=== PATIENT | male | born 1970 | race Asian ===

== ENCOUNTER 2020-05-26 15:03 | Outpatient (REF) | payer OTHER, SELFPAY ==
[2020-05-26 15:33] LABS: MANUAL DIFF FLAG NO
[2020-05-26 15:38] LABS: Basophils Percent Auto 0.4 % (0-2); Eosinophils Absolute Auto 0.1 X10*3/uL (0.0-0.4); Eosinophils Percent Auto 1.7 % (0-4); Hematocrit 39.9 % (42-52); Hemoglobin 13.4 g/dl (14.0-18.0); Imm Gran Abs Auto 0.02 X10*3/uL (0.00-0.03); Imm Gran Pct Auto 0.3 % (0.0-0.4); Lymphocytes Absolute Auto 1.4 X10*3/uL (1.2-4.9); Lymphocytes Percent Auto 18.9 % (20-40); Mean Corpuscular HGB Conc 33.6 g/dl (31.0-36.0); Mean Corpuscular Hemoglobin 28.8 pg (27.0-33.0); Mean Corpuscular Volume 85.6 fL (80-98); Mean Platelet Volume 9.8 fL (9.4-12.4); Monocytes Absolute Auto 0.6 X10*3/uL (0.1-1.2); Monocytes Percent Auto 7.3 % (2-11); Neutrophils Absolute Auto 5.4 X10*3/uL (2.0-8.3); Neutrophils Percent Auto 71.4 % (45-73); Platelet Count 260 X10*3/uL (160-400); Red Blood Count 4.66 X10*6/uL (4.60-5.80); Red Cell Distribution Width 12.1 % (11.0-16.0); White Blood Count 7.5 X10*3/uL (4.8-10.8)
[2020-05-26 16:00] LABS: Glucose Urine UA 100 MG/DL (NEG); Leukocyte Esterase Urine NEG (NEG); Nitrite Urine NEG (NEG); PH 5.5 (5.0-8.0); Specific Gravity - Urine 1.025 (1.005-1.025); Urine Blood NEG (NEG); Urine Ketones NEG (NEG); Urine Protein NEG (NEG-TRACE)
[2020-05-26 16:04] LABS: Alanine Aminotransferase 33 U/L (0-40); Albumin Level 4.6 g/dL (3.5-5.0); Alkaline Phosphatase 87 U/L (39-117); Anion Gap 13 (12-20); Appearance Urine CLEAR; Aspartate Amino Transferase 22 U/L (5-37); Bilirubin Total 0.8 mg/dL (0.0-1.0); Blood Urea Nitrogen 12 mg/dL (9-16); Calcium 10.3 mg/dL (8.4-10.2); Carbon Dioxide 28 mmol/L (22-29); Chloride 103 mmol/L (96-108); Cholesterol 164 mg/dL; Color Urine YELLOW; Estimated Glomerular Filt Rate > 60; Glucose Random 214 mg/dL (60-115); HDL Cholesterol 38 mg/dL; LDL Cholesterol Calculated 89 mg/dl; Potassium 4.9 mmol/L (3.3-5.1); Sodium 139 mmol/L (135-145); Total Protein 7.6 g/dL (6.5-8.0); Triglycerides 189 mg/dL
[2020-05-26 16:10] LABS: RBC Urine 0 /HPF (0); WBC Urine 0 /HPF (0-4)
[2020-05-26 16:17] LABS: Free T4 (Free Thyroxine) 2.27 ng/dL (0.71-1.85); Thyroid Stimulating Hormone < 0.01 uIU/mL (0.32-4.0)
[2020-05-26 16:45] LABS: Folate > 20.0 ng/mL (> or = 4.0); Vitamin B12 320 pg/mL (200-900)
== END 2020-05-26 15:04 | disposition home or self-care (01) ==
LOC: HO.LAB 15:03
PROVIDERS: PCP Internal Medicine; Visit Provider Internal Medicine
DX: I10 Essential (primary) hypertension (principal); E78.00 Pure hypercholesterolemia, unspecified
CPT/HCPCS: 36415; 80053; 80061; 81001; 82607; 82746; 84439; 84443; 85025

== ENCOUNTER → 2020-07-12 13:40 | Outpatient (BNVA) | payer OTHER, SELFPAY | PROVIDERS: PCP Internal Medicine; Visit Provider Dietitian, Registered | DX: Z13.89 Encounter for screening for other disorder (principal) | CPT/HCPCS: 97802 ==

== ENCOUNTER 2020-07-29 14:17 | Outpatient (REF) | payer OTHER, SELFPAY ==
[2020-07-29 16:01] LABS: MANUAL DIFF FLAG NO
[2020-07-29 16:05] LABS: Basophils Percent Auto 0.5 % (0-2); Eosinophils Absolute Auto 0.2 X10*3/uL (0.0-0.4); Eosinophils Percent Auto 2.3 % (0-4); Hematocrit 39.4 % (42-52); Hemoglobin 13.2 g/dl (14.0-18.0); Imm Gran Abs Auto 0.04 X10*3/uL (0.00-0.03); Imm Gran Pct Auto 0.5 % (0.0-0.4); Immature Retic Fraction 6.4 % (2.3-13.4); Lymphocytes Absolute Auto 1.9 X10*3/uL (1.2-4.9); Lymphocytes Percent Auto 22.4 % (20-40); Mean Corpuscular HGB Conc 33.5 g/dl (31.0-36.0); Mean Corpuscular Hemoglobin 27.9 pg (27.0-33.0); Mean Corpuscular Volume 83.3 fL (80-98); Mean Platelet Volume 10.4 fL (9.4-12.4); Monocytes Absolute Auto 0.5 X10*3/uL (0.1-1.2); Monocytes Percent Auto 6.3 % (2-11); Neutrophils Absolute Auto 5.6 X10*3/uL (2.0-8.3); Platelet Count 314 X10*3/uL (160-400); Red Blood Count 4.73 X10*6/uL (4.60-5.80); Red Cell Distribution Width 12.2 % (11.0-16.0); Retic HGB Equivalent 32.2 pg (30.0-35.0); Reticulocyte Percent 1.2 % (0.5-1.8); Reticulocytes Absolute 0.055 X10*6/uL (0.026-0.095); White Blood Count 8.3 X10*3/uL (4.8-10.8)
[2020-07-29 16:28] LABS: Iron 86 mcg/dL (45-160); Percent Iron Saturation 29 % (15-50); Total Iron Binding Capacity 299 mcg/dL (228-428); Unsaturated Iron Binding 213 ug/dL
[2020-07-29 16:45] LABS: Free T4 (Free Thyroxine) 1.63 ng/dL (0.71-1.85)
[2020-07-29 16:52] LABS: Thyroid Stimulating Hormone < 0.01 uIU/mL (0.32-4.0)
[2020-07-29 17:01] LABS: Folate > 20.0 ng/mL (> or = 4.0); Vitamin B12 420 pg/mL (200-900)
[2020-07-29 17:23] LABS: Ferritin 90 ng/mL (20-250)
[2020-08-01 07:47] LABS: Triiodothyronine T3 Total 158 ng/dL (76-181)
[2020-08-02 21:47] LABS: Thyroglobulin Antibodies 1 IU/mL (< or = 1); Thyroid Peroxidase Antibodies 2 IU/mL (<9)
[2020-08-04 21:17] LABS: Thyroid Stimulating Immunoglob <89 % baseline (<140); Thyrotropin Receptor Antibody 11.38 IU/L (<=2.00)
== END 2020-07-29 14:18 | disposition home or self-care (01) ==
LOC: HO.LAB 14:17
PROVIDERS: PCP Internal Medicine; Visit Provider Internal Medicine Endocrinology, Diabetes & Metabolism
DX: E11.65 Type 2 diabetes mellitus with hyperglycemia (principal); D64.9 Anemia, unspecified; F17.210 Nicotine dependence, cigarettes, uncomplicated; E05.90 Thyrotoxicosis, unspecified without thyrotoxic crisis or storm; Z79.899 Other long term (current) drug therapy
CPT/HCPCS: 36415; 82607; 82728; 82746; 83520; 83540; 84439; 84443; 84445; 84480; 85025; 85045; 86376; 86800

== ENCOUNTER 2020-08-22 13:39 | Outpatient (REF) | payer OTHER, SELFPAY ==
--- NOTE | ~2020-08-22 | US_ITS ---
EXAMINATION: US THYROID CLINICAL INFORMATION: Thyrotoxicosis, unspecified without thyrotoxic crisis or storm. COMPARISON: None TECHNIQUE: Linear transducer grayscale and color Doppler examination with attention to the region of the thyroid. FINDINGS: SIZE: Measurements of the thyroid lobes and nodules are given in sagittal, anteroposterior and transverse dimensions respectively. Right Thyroid Lobe: 4.6 x 1.5 x 1.5 cm, volume 5.4 mL. Parenchyma: The gland echotexture is homogeneous. Thyroid vascularity is normal. Left Thyroid Lobe: 4.8 x 1.4 x 1.4 cm, volume 4.9 mL. Parenchyma: The gland echotexture is homogeneous. Thyroid vascularity is normal. Isthmus: 0.2 cm in maximum AP dimension. Estimated total number of nodules greater than or equal to 1 cm: 0. Natural Resources Technician nodules are described as follows: 1. Location: Left lower pole. Size: 0.3 x 0.1 x 0.2 cm, volume 0.01 mL. Nodule characteristics: Composition: Cystic(0). ACR TI-RADS total points: 0 ACR TI-RADS category: 1 2. Location: Right mid pole. Size: 0.3 x 0.2 x 0.2 cm, volume 0.01 mL. Nodule characteristics: Composition: Cystic(0). ACR TI-RADS total points: 0 ACR TI-RADS category: 1 NODES: There are 2 hyperechoic solid nodules slightly posterior and lateral to the inferior left lobe. These measure 6 x 4 x 4 mm and 8 x 5 x 10 mm. Both lesions may have a thin peripheral hypoechoic component. It is uncertain whether these represent lymph nodes with prominent fatty jc and cortical thinning. US/US thyroid IMPRESSION: Normal-sized thyroid gland with small bilateral thyroid nodules. 2 hyperechoic lesions posterior and lateral to the inferior left lobe. It is uncertain whether these represent lymph nodes with prominent fatty jc and cortical thinning or other soft tissue lesion. ACR TI-RADS RECOMMENDATION REFERENCE: Ultrasound-guided fine-needle aspiration, followup ultrasound, no further follow up. * TR1 (0 point) and TR 2 (2 points): No FNA or follow up * TR3 (3 points): FNA if more than or equal to 2.5 cm in maximum dimension, followup ultrasound in 1, 3 and 5 years if 1.5 to 2.4 cm in maximum dimension. * TR4 (4-6 points): FNA if more than or equal to 1.5 cm in maximum dimension, followup ultrasound in 1, 2, 3 and 5 years if 1 to 1.4 cm in maximum dimension. * TR5 (more than or equal to 7 points): FNA if more than or equal to 1 cm in maximum dimension, followup ultrasound every year for 5 years if 0.5 to 0.9 cm in maximum dimension. * TR3, TR4 or TR5 nodules that are below the size threshold for follow up receive no follow up.
== END 2020-08-22 13:40 | disposition home or self-care (01) ==
LOC: HO.HMGCX 13:39
PROVIDERS: PCP Internal Medicine; Visit Provider Internal Medicine Endocrinology, Diabetes & Metabolism
DX: E05.90 Thyrotoxicosis, unspecified without thyrotoxic crisis or storm (principal)
CPT/HCPCS: 76536

== ENCOUNTER → 2020-08-29 09:29 | Outpatient (BNVA) | payer OTHER, SELFPAY | PROVIDERS: PCP Internal Medicine; Visit Provider Internal Medicine Endocrinology, Diabetes & Metabolism ==

== ENCOUNTER → 2020-09-07 10:21 | Outpatient (REF) | payer OTHER, SELFPAY | LOC: HO.NUCMED 10:21 | PROVIDERS: Visit Provider Internal Medicine Endocrinology, Diabetes & Metabolism | DX: Z13.89 Encounter for screening for other disorder (principal) ==

== ENCOUNTER → 2020-09-14 09:27 | Outpatient (REF) | payer OTHER, SELFPAY ==
--- NOTE | ~2020-09-14 | NM_ITS ---
EXAMINATION: THYROID UPTAKE AND SCAN CLINICAL INFORMATION: Thyrotoxicosis. COMPARISON: No previous radionuclide thyroid scan is available for comparison. Thyroid ultrasound dated 08/22/2020 is available for comparison. TECHNIQUE: Following the oral administration of 281 microcuries of I-123 sodium iodide, thyroid uptake was performed and expressed as a percentage of the administrated dose. Gamma scintillation camera images of the thyroid in the anterior and right and left anterior oblique views were obtained using a pinhole collimator following the administration of 10 mCi Tc-99m pertechnetate. FINDINGS: The uptake is 7.8% at 4 hours and 27.6% at 24 hours (Normal radioiodine uptake at 24 hours is 10% to 30%). The radioiodine uptake is normal. The radiopertechnetate thyroid scintigram demonstrates the thyroid gland to be normal in size, shape, and position. There is homogeneous distribution of activity within the the gland with no focal abnormalities noted. The trapping function appears normal. There is a focus of decreased activity of moderate severity present in the lower pole of the left lobe. Otherwise there is homogeneous distribution of activity in the remainder the left lobe and throughout the right lobe, but the trapping function is markedly increased diffusely. A single anterior radioiodine image obtained at the time of the 24-hour uptake measurement is similar to the radio pertechnetate image but does not delineate the detail within the gland as well. The thyroid ultrasound dated 08/22/2020 demonstrated significant nodularity in or immediately adjacent to the lower pole the left lobe that probably corresponds to the focus of decreased activity on the current study at this site. 2 additional subcentimeter nodules in the left lower pole and right mid pole are too small to be visualized on this radionuclide images and are not delineated. NM/NM thyroid w uptake IMPRESSION: 1. A solitary hypofunctioning (cold) nodule is likely present in the lower pole of the left lobe. Further characterization of this with ultrasound-guided fine-needle aspirate is recommended. 2. Homogeneous distribution of activity there is diffusely increased trapping function within the remainder of the thyroid gland despite its normal size and normal radioiodine uptake is consistent with Graves' disease in the clinical setting of hyperthyroidism.
== END ==
LOC: HO.NUCMED 09:27
PROVIDERS: PCP Internal Medicine; Visit Provider Internal Medicine Endocrinology, Diabetes & Metabolism
DX: E05.90 Thyrotoxicosis, unspecified without thyrotoxic crisis or storm (principal)
CPT/HCPCS: 78014; A9516

== ENCOUNTER 2020-11-28 10:46 | Outpatient (REF) | payer OTHER, SELFPAY ==
[2020-11-28 10:55] LABS: MANUAL DIFF FLAG NO
[2020-11-28 11:14] LABS: Basophils Percent Auto 0.5 % (0-2); Eosinophils Absolute Auto 0.1 X10*3/uL (0.0-0.4); Eosinophils Percent Auto 1.6 % (0-4); Hematocrit 38.1 % (42-52); Hemoglobin 12.7 g/dl (14.0-18.0); Imm Gran Abs Auto 0.03 X10*3/uL (0.00-0.03); Imm Gran Pct Auto 0.4 % (0.0-0.4); Lymphocytes Absolute Auto 1.9 X10*3/uL (1.2-4.9); Lymphocytes Percent Auto 23.7 % (20-40); Mean Corpuscular HGB Conc 33.3 g/dl (31.0-36.0); Mean Corpuscular Hemoglobin 30.7 pg (27.0-33.0); Mean Platelet Volume 9.5 fL (9.4-12.4); Monocytes Absolute Auto 0.6 X10*3/uL (0.1-1.2); Monocytes Percent Auto 7.7 % (2-11); Neutrophils Absolute Auto 5.4 X10*3/uL (2.0-8.3); Neutrophils Percent Auto 66.1 % (45-73); Platelet Count 270 X10*3/uL (160-400); Red Blood Count 4.14 X10*6/uL (4.60-5.80); Red Cell Distribution Width 13.2 % (11.0-16.0); White Blood Count 8.1 X10*3/uL (4.8-10.8)
[2020-11-28 11:55] LABS: Alanine Aminotransferase 23 U/L (0-40)
[2020-11-28 11:59] LABS: Free T4 (Free Thyroxine) 0.67 ng/dL (0.71-1.85); Thyroid Stimulating Hormone 69.29 uIU/mL (0.32-4.0)
[2020-11-28 12:41] LABS: Albumin Level 4.7 g/dL (3.5-5.0); Alkaline Phosphatase 121 U/L (39-117); Aspartate Amino Transferase 25 U/L (5-37); Bilirubin Direct 0.2 mg/dL (0.0-0.5); Bilirubin Total 0.5 mg/dL (0.0-1.0); Total Protein 7.9 g/dL (6.5-8.0)
[2020-11-29 22:27] LABS: Triiodothyronine T3 Total 79 ng/dL (76-181)
== END 2020-11-28 10:47 | disposition home or self-care (01) ==
LOC: HO.LAB 10:46
PROVIDERS: PCP Internal Medicine; Visit Provider Internal Medicine Endocrinology, Diabetes & Metabolism
DX: E05.00 Thyrotoxicosis with diffuse goiter without thyrotoxic crisis or storm (principal)
CPT/HCPCS: 36415; 80076; 84439; 84443; 84480; 85025

== ENCOUNTER 2021-02-20 08:53 | Outpatient (REF) | payer OTHER, SELFPAY ==
--- NOTE | ~2021-02-20 | XR_ITS ---
EXAMINATION: XR KNEE, RIGHT XR KNEE, LEFT CLINICAL INFORMATION: Bilateral knee pain COMPARISON: None TECHNIQUE: Each knee is imaged in 3 views including AP projections with weightbearing. There are total of 6 views. FINDINGS: Right: No fracture, dislocation, or destructive process. No focal joint narrowing. No erosive change or chondrocalcinosis. There is small suprapatellar effusion with mild thickening suprapatellar bursa. Hoffa's fat pad appears normal. There is spurring at the quadriceps insertion patella. Left: No fracture, dislocation, or destructive process. There is borderline narrowing medial knee joint compartment and lateral patellofemoral joint without erosive change, chondrocalcinosis, or subchondral sclerosis. There is small suprapatellar effusion. Hoffa's fat pad appears normal. There is spurring at the quadriceps insertion patella. XR/XR knee RT 3V IMPRESSION: Right: -Small suprapatellar effusion. No joint narrowing or erosive change. -Mild spurring quadriceps insertion patella. Left: -Small suprapatellar effusion. Borderline narrowing medial knee joint compartment and lateral patellofemoral joint. No erosive change. -Mild spurring quadriceps insertion patella.
--- NOTE | ~2021-02-20 | XR_ITS ---
EXAMINATION: XR KNEE, RIGHT XR KNEE, LEFT CLINICAL INFORMATION: Bilateral knee pain COMPARISON: None TECHNIQUE: Each knee is imaged in 3 views including AP projections with weightbearing. There are total of 6 views. FINDINGS: Right: No fracture, dislocation, or destructive process. No focal joint narrowing. No erosive change or chondrocalcinosis. There is small suprapatellar effusion with mild thickening suprapatellar bursa. Hoffa's fat pad appears normal. There is spurring at the quadriceps insertion patella. Left: No fracture, dislocation, or destructive process. There is borderline narrowing medial knee joint compartment and lateral patellofemoral joint without erosive change, chondrocalcinosis, or subchondral sclerosis. There is small suprapatellar effusion. Hoffa's fat pad appears normal. There is spurring at the quadriceps insertion patella. XR/XR knee LT 3V IMPRESSION: Right: -Small suprapatellar effusion. No joint narrowing or erosive change. -Mild spurring quadriceps insertion patella. Left: -Small suprapatellar effusion. Borderline narrowing medial knee joint compartment and lateral patellofemoral joint. No erosive change. -Mild spurring quadriceps insertion patella.
[2021-02-20 09:50] LABS: MANUAL DIFF FLAG NO
[2021-02-20 10:10] LABS: Basophils Absolute Auto 0.1 X10*3/uL (0.0-0.2); Basophils Percent Auto 0.5 % (0-2); Eosinophils Absolute Auto 0.1 X10*3/uL (0.0-0.4); Eosinophils Percent Auto 1.3 % (0-4); Hematocrit 40.1 % (42.0-52.0); Hemoglobin 13.2 g/dl (14.0-18.0); Imm Gran Abs Auto 0.04 X10*3/uL (0.00-0.03); Imm Gran Pct Auto 0.4 % (0.0-0.4); Immature Retic Fraction 11.9 % (2.3-13.4); Lymphocytes Absolute Auto 1.9 X10*3/uL (1.2-4.9); Lymphocytes Percent Auto 18.8 % (20-40); Mean Corpuscular HGB Conc 32.9 g/dl (31.0-36.0); Mean Corpuscular Hemoglobin 30.2 pg (27.0-33.0); Mean Corpuscular Volume 91.8 fL (80.0-98.0); Mean Platelet Volume 10.1 fL (9.4-12.4); Monocytes Absolute Auto 0.8 X10*3/uL (0.1-1.2); Neutrophils Absolute Auto 7.1 x10*3/uL (2.0-8.3); Platelet Count 233 X10*3/uL (160-400); Red Blood Count 4.37 X10*6/uL (4.60-5.80); Retic HGB Equivalent 34.3 pg (30.0-35.0); Reticulocyte Percent 1.3 % (0.5-1.8); Reticulocytes Absolute 0.057 X10*6/uL (0.026-0.095)
[2021-02-20 10:24] LABS: Estimated Average Glucose 160 mg/dL; Hemoglobin A1c % 7.2 %
[2021-02-20 10:35] LABS: Alanine Aminotransferase 30 U/L (0-40); Albumin Level 4.5 g/dL (3.5-5.0); Alkaline Phosphatase 98 U/L (39-117); Anion Gap 12 (12-20); Aspartate Amino Transferase 29 U/L (5-37); Bilirubin Total 0.5 mg/dL (0.0-1.0); Blood Urea Nitrogen 11 mg/dL (9-16); Calcium 9.8 mg/dL (8.4-10.2); Carbon Dioxide 26 mmol/L (22-29); Chloride 106 mmol/L (96-108); Cholesterol 238 mg/dL; Estimated Glomerular Filt Rate > 60; Glucose Random 147 mg/dL (60-115); HDL Cholesterol 63 mg/dL; Iron 110 mcg/dL (45-160); LDL Cholesterol Calculated 142 mg/dl; Percent Iron Saturation 30 % (15-50); Potassium 4.7 mmol/L (3.3-5.1); Sodium 139 mmol/L (135-145); Total Iron Binding Capacity 364 mcg/dL (228-428); Total Protein 7.9 g/dL (6.5-8.0); Triglycerides 169 mg/dL; Unsaturated Iron Binding 254 ug/dL
[2021-02-20 10:54] LABS: Ferritin 48 ng/mL (20-250)
[2021-02-20 10:55] LABS: Free T4 (Free Thyroxine) 0.97 ng/dL (0.71-1.85); Thyroid Stimulating Hormone 4.48 uIU/mL (0.32-4.0)
[2021-02-20 11:17] LABS: Folate > 20.0 ng/mL (> or = 4.0); Vitamin B12 232 pg/mL (200-900)
[2021-02-21 07:31] LABS: Triiodothyronine T3 Total 112 ng/dL (76-181)
== END 2021-02-20 08:54 | disposition home or self-care (01) ==
LOC: HO.XRAY 08:53
PROVIDERS: Internal Medicine; Absent Provider Internal Medicine; PCP Internal Medicine; Visit Provider Nurse Practitioner Family
DX: Z01.818 Encounter for other preprocedural examination (principal); E05.00 Thyrotoxicosis with diffuse goiter without thyrotoxic crisis or storm; E03.9 Hypothyroidism, unspecified; E78.00 Pure hypercholesterolemia, unspecified
CPT/HCPCS: 36415; 73562; 80053; 80061; 82607; 82728; 82746; 83036; 83540; 84439; 84443; 84480; 85025; 85045

== ENCOUNTER 2021-11-10 10:04 | Outpatient (REF) | payer OTHER, SELFPAY ==
[2021-11-10 11:15] LABS: Free T4 (Free Thyroxine) 1.06 ng/dL (0.71-1.85); Thyroid Stimulating Hormone 1.14 uIU/mL (0.32-4.0)
== END 2021-11-10 10:05 | disposition home or self-care (01) ==
LOC: HO.LAB 10:04
PROVIDERS: Internal Medicine Endocrinology, Diabetes & Metabolism; PCP Internal Medicine; Visit Provider Internal Medicine
DX: E03.9 Hypothyroidism, unspecified (principal)
CPT/HCPCS: 36415; 84439; 84443

== ENCOUNTER 2021-11-14 11:45 | Outpatient (REF) | payer OTHER, SELFPAY ==
[2021-11-14 11:57] LABS: MANUAL DIFF FLAG NO
[2021-11-14 12:44] LABS: Basophils Absolute Auto 0.1 X10*3/uL (0.0-0.2); Basophils Percent Auto 0.5 % (0-2); Eosinophils Absolute Auto 0.1 X10*3/uL (0.0-0.4); Eosinophils Percent Auto 0.8 % (0-4); Hematocrit 36.2 % (42.0-52.0); Hemoglobin 12.2 g/dl (14.0-18.0); Imm Gran Abs Auto 0.05 X10*3/uL (0.00-0.03); Imm Gran Pct Auto 0.5 % (0.0-0.4); Immature Retic Fraction 13.6 % (2.3-13.4); Lymphocytes Absolute Auto 2.1 X10*3/uL (1.2-4.9); Lymphocytes Percent Auto 22.4 % (20-40); Mean Corpuscular HGB Conc 33.7 g/dl (31.0-36.0); Mean Corpuscular Hemoglobin 30.3 pg (27.0-33.0); Mean Platelet Volume 9.6 fL (9.4-12.4); Monocytes Absolute Auto 0.7 X10*3/uL (0.1-1.2); Neutrophils Absolute Auto 6.3 x10*3/uL (2.0-8.3); Neutrophils Percent Auto 67.8 % (45-73); Platelet Count 291 X10*3/uL (160-400); Red Blood Count 4.02 X10*6/uL (4.60-5.80); Red Cell Distribution Width 13.1 % (11.0-16.0); Retic HGB Equivalent 36.7 pg (30.0-35.0); Reticulocyte Percent 1.8 % (0.5-1.8); Reticulocytes Absolute 0.073 X10*6/uL (0.026-0.095); White Blood Count 9.3 X10*3/uL (4.8-10.8)
[2021-11-14 13:05] LABS: Cholesterol 214 mg/dL; HDL Cholesterol 65 mg/dL; Iron 94 mcg/dL (45-160); LDL Cholesterol Calculated 71 mg/dl; Percent Iron Saturation 25 % (15-50); Total Iron Binding Capacity 380 mcg/dL (228-428); Triglycerides 390 mg/dL; Unsaturated Iron Binding 286 ug/dL
[2021-11-14 13:25] LABS: Ferritin 116 ng/mL (20-250)
[2021-11-14 13:50] LABS: Folate 17.5 ng/mL (> or = 4.0); Vitamin B12 180 pg/mL (200-900)
[2021-11-14 14:24] LABS: Creatinine Urine 312.49 mg/dL; Microalbum/Creatinine Ratio Ur 15.3 ug/mg cr
== END 2021-11-14 11:46 | disposition home or self-care (01) ==
LOC: HO.LAB 11:45
PROVIDERS: PCP Internal Medicine; Visit Provider Internal Medicine
DX: E78.00 Pure hypercholesterolemia, unspecified (principal); E11.65 Type 2 diabetes mellitus with hyperglycemia; D64.9 Anemia, unspecified; E53.8 Deficiency of other specified B group vitamins
CPT/HCPCS: 36415; 80061; 82043; 82607; 82728; 82746; 83540; 85025; 85045

== ENCOUNTER 2022-03-09 13:30 | Outpatient (REF) | payer OTHER, SELFPAY ==
--- NOTE | ~2022-03-09 | US_ITS ---
EXAMINATION: US SOFT TISSUE OF THE NECK CLINICAL INFORMATION: Other diseases of salivary glands. Question left parotid nodule. COMPARISON: None. TECHNIQUE: Linear transducer grayscale and color Doppler examination of the left parotid. FINDINGS: The left parotid gland is homogeneous in echotexture measuring 5.0 x 1.5 cm. Along the lateral/superficial gland, there is a hypoechoic complex nodule measuring 0.8 x 0.8 x 0.8 cm. No internal flow is visualized. Adjacent to the larger nodular the second smaller nodule measuring 0.5 x 0.2 x 0.4 cm. No abnormal or increased flow visualized. US/US soft tiss head and/or neck IMPRESSION: Two nonvascular nodules visualized in the left superficial parotid gland measuring 0.8 cm and 0.5 cm respectively. These are most likely atypical lymph nodes unless proven otherwise.
== END 2022-03-09 13:31 | disposition home or self-care (01) ==
LOC: HO.HMGCX 13:30
PROVIDERS: PCP Internal Medicine; Visit Provider Internal Medicine
DX: K11.8 Other diseases of salivary glands (principal)
CPT/HCPCS: 76536

== ENCOUNTER → 2022-03-16 09:10 | Outpatient (BNVA) | payer OTHER, SELFPAY | PROVIDERS: PCP Internal Medicine; Visit Provider Psychiatry & Neurology Neurology | DX: Z13.89 Encounter for screening for other disorder (principal) ==

== ENCOUNTER 2022-03-28 10:14 | Outpatient (REF) | payer OTHER, SELFPAY ==
[2022-03-28 12:54] LABS: Erythrocyte Sedimentation Rate 22 MM/HR (0-15)
[2022-03-30 13:03] LABS: CRP High Sensitivity 0.9 mg/L
[2022-04-01 14:53] LABS: Anti Nuclear Antibody Screen NEGATIVE (NEGATIVE)
[2022-04-03 06:32] LABS: Angiotensin Converting Enzyme 12.1 U/L (9-67)
== END 2022-03-28 10:15 | disposition home or self-care (01) ==
LOC: HO.LAB 10:14
PROVIDERS: PCP Internal Medicine; Visit Provider Psychiatry & Neurology Neurology
DX: H05.129 Orbital myositis, unspecified orbit (principal)
CPT/HCPCS: 36415; 82164; 85652; 86038; 86039; 86141; 86617; 86618

== ENCOUNTER → 2022-04-25 14:15 | Outpatient (BNVA) | payer OTHER, SELFPAY | PROVIDERS: PCP Internal Medicine; Visit Provider Psychiatry & Neurology Neurology | DX: H05.129 Orbital myositis, unspecified orbit (principal) | CPT/HCPCS: 99212 ==

== ENCOUNTER 2022-08-21 11:36 | Day surgery (SDC) | payer OTHER, SELFPAY ==
[2022-08-21 11:54] VITALS: BMI 22.0
--- NOTE | 2022-08-21 12:08 | P.HPSUR_ITS ---
Pre-Procedural Eval Section A Date of Service: 08/21/22 Section B Chief Complaint: screening Relevant Family History (Specify if Yes): No Relevant Social History: Tobacco Use Present Medications: see Short Stay Collaborative assessment Medical History: Significant History (Elbow pain, left Graves disease Hypertension Multinodular goiter) History of Previous Operations: Relevant previous surgery/procedure and date(s) (knee surgery) Allergies: Allergies Allergy/AdvReac Type Severity Reaction Status Date / Time No Known Allergies Allergy Verified 03/16/22 09:19 Review of Systems Sugical H&P ROS: Negative: Constitution, Cardiovascular, Respiratory, Neurol ogical, Psychiatric, Hem-Onc, Allergic/Immunologic, Gastrointestinal, Genitourinary, Musculoskeletal, Integumentary, Endocrine and Eyes/Ears/Nose/Throat Exam Surgical H&P Exam: Normal: HEENT, Normal: Heart, Normal: Lungs, Normal: Extremities, Normal: Abdomen, Normal: Skin and Normal: Neurological Plan Diagnosis/Plan: Unchanged I have reviewed the history and physical and performed a pertinent physical examination on my patient. No changes have occurred unless specified. Time Spent With Patient Time: Total time managing care of this patient today ____ minutes.
[2022-08-21 12:29] LABS: Glucose, Whole Blood 148 mg/dL (60-115)
--- NOTE | 2022-08-21 12:56 | P.OP_ITS ---
Operative Note Operative Note Date of Service: 08/21/22 Narrative: Operative Information Procedure Description: Colonoscopy Indication: screening Anesthesia: MAC COLONOSCOPY Instrument: Olympus variable stiffness pediatric scope 190L Colonoscopy Monitoring: Vital signs and clinical assessment, continuous EKG monitoring, Pulse oximetry, Carbon Dioxide monitoring and blood pressure monitoring were done throughout the procedure. Colon withdrawal time was 10 minutes. Procedure: The patient was placed in the left lateral decubitis position and pre-procedure medications were administered. After a digital rectal examination of the ano-rectum, the video colonoscope was inserted into the rectum and advanced through the colon to the cecum/TI. The colonoscope was slowly withdrawn in a retrograde panoramic fashion and the colon mucosa was carefully examined including a retroflexed view of the rectum. Findings and interventions are described below. Procedure Difficulty: easy Findings: Terminal Ileum-normal Cecum:normal Ascending Colon: normal Transverse Colon -normal Descending Colon: 6-8 mm sessile polyp removed with cold snare Sigmoid Colon: 7-8 mm sessile polyp removed with cold snare Rectum: Retroflexion with medium sized internal hemorrhoids, grade I Anorectum - normal Colon preparation: [place] Bowel Preparation Scale Right colon; 2 Transverse colon: 2 Left colon; 3 (0 = Unprepared colon segment with mucosa not seen due to solid stool that cannot be cleared. 1 = Portion of mucosa of the colon segment seen, but other areas of the colon segment not well seen due to staining, residual stool and/or opaque liquid. 2 = Minor amount of residual staining, small fragments of stool and/or opaque liquid, but mucosa of colon segment seen well. 3 = Entire mucosa of colon segment seen well with no residual staining, small fragments of stool or opaque liquid) Impression and Post Procedure Diagnosis: polyps internal hemorrhoids Plan: High fiber diet leaflet Avoid straining at stool, epsom salts and sitz bath, anusol supps or cream Repeat Colonoscopy in 5-7 years if adenomatous, otherwise 10 yrs if hyperplastic or earlier if clinically indicated Above findings were reviewed with the patient and relevant handouts were provided if indicated.
[2022-08-21 13:02] VITALS: BP 118/72; PULSE 75; RESP 18; TEMP 36.3; O2SAT 98
[2022-08-21 13:07] VITALS: BP 114/76; PULSE 74; RESP 18; O2SAT 97
[2022-08-21 13:12] VITALS: BP 128/80; PULSE 69; RESP 18; O2SAT 98
[2022-08-21 13:17] VITALS: BP 134/87; PULSE 63; RESP 18; O2SAT 98
[2022-08-21 13:25] VITALS: BP 139/95; PULSE 75; RESP 18; TEMP 36.8; O2SAT 99
== END 2022-08-21 14:08 | disposition home or self-care (01) ==
PROVIDERS: PCP Internal Medicine; Visit Provider Internal Medicine Gastroenterology
PROC: 0DJD8ZZ Inspection of Lower Intestinal Tract, Via Natural or Artificial Opening Endoscopic (ICD-10-PCS; CPT 45378; principal; 2022-08-21 13:40)
DX: Z12.11 Encounter for screening for malignant neoplasm of colon (principal); D12.4 Benign neoplasm of descending colon; D12.5 Benign neoplasm of sigmoid colon; K64.0 First degree hemorrhoids; I10 Essential (primary) hypertension
CPT/HCPCS: 45385; 82947; 88305

== ENCOUNTER → 2022-08-21 11:36 | Outpatient (BNV) | payer OTHER, SELFPAY | PROVIDERS: PCP Internal Medicine; Visit Provider Internal Medicine Gastroenterology | DX: K63.5 Polyp of colon (principal) | CPT/HCPCS: 45385 ==

== ENCOUNTER 2022-10-18 13:28 | Outpatient (AMB) | payer OTHER, SELFPAY ==
--- NOTE | 2022-10-18 14:08 | AM.OFFWIN_ITS ---
Intake Vital Signs 10/18/22 14:09 Height 5 ft 8 in Weight 141 lb BMI 21.4 BP 150/90 H Blood Pressure Location Rt brachial Position Sitting Pulse 88 Pulse Source Pulse Oximeter Pulse Oximetry (%) 98 Oxygen Delivery Method Room Air Intake Visit Reasons: EST/left shoulder bump Intake Note: Patient here for bump on left shoulder. states he had an injury years ago but it started bothering him the last 2-3 days. he states he is having difficulties picking things up with that hand. Patient Tobacco Use Status: Current everyday Tobacco user Allergies No Known Allergies Allergy (Verified 10/18/22 14:10) Do you need a note to return to daycare/school/sports/work: No HPI HPI Comments History of Present Illness Details 51-year-old male presents for swelling lump on his left shoulder. Patient states lump has been there for approximately 15 years scratch to be getting bigger. Over the last couple days as started to hurt he has noticed some redness in the area. Denies fevers or chills [facility] Medical History (Updated 03/27/22 @ 15:53 by Hemalatha Jauregui MD) Annual physical exam Multinodular goiter Graves disease Elbow pain, left Hyperthyroidism Hypertension Surgical History History of knee surgery Family History Mother Myocardial infarct Breast cancer Social History Housing: House Alcohol intake: current Alcohol intake frequency: does not drink Patient Tobacco Use Status: Current everyday Tobacco user Tobacco use type: Cigarette Cigarettes Per Day: 5 e-Cigarette/Vaping Use: Never Used Second Hand Smoke Exposure: No Current occupational status: employed Cognitive needs: No Hearing needs: No Vision needs: No Review of Systems Const All systems reviewed & are unremarkable except as noted in HPI and below Skin/Breast Reports new lesions and Reports erythema Physical Exam Vital Signs: Last Vital Signs Pulse 88 10/18/22 14:09 BP 150/90 H 10/18/22 14:09 Pulse Ox 98 10/18/22 14:09 Oxygen Delivery Method Room Air 10/18/22 14:09 BMI result Body Mass Index 21.4 Const General: no acute distress and alert Skin Other: well-circumscribed lump approximately 3 in x 2 in 1 the upper left shoulder. Small area of erythema and warmth on the outer edge. Assessment & Plan Assessment & Plan (1) Cellulitis: Code(s): L03.90 - Cellulitis, unspecified Qualifiers: Site of cellulitis: extremity Site of cellulitis of extremity: upper extremity Laterality: left Qualified Code(s): L03.114 - Cellulitis of left upper limb Plan given patient presentation and physical exam of consideration is abscess versus cyst with overlying cellulitis. Given the patient's lump has been present for over 15 years has suspect a cyst is present. Therefore will not drain at this time as the capsule needs to be fully removed. Will cool off with antibiotics and recommend patient follow-up with his primary care for general surgery referral to evaluate for cyst removal Discharge instructions, follow up and treatment are discussed with patient in my usual fashion. Alternatives in treatment are also discussed. The patient will return for worsening symptoms or as needed. Advised that any labs/imaging ordered will be followed up on and contact made if further treatment needed. Counseled that patient's condition may require further evaluation and/or treatment. Symptoms of concern for worsening disorder discussed in detail in my customary manner. Patient does verbalize understanding of the plan, there are no apparent barriers to communication. The patient is given the opportunity to ask questions and have them answered to his/her satisfaction Medications: New cephalexin 500 mg PO QID 7 days 28 caps 0RF benzonatate 100 mg PO BID PRN 10 caps 0RF cough Coding Level of Care Code Est Pt Level 3 (49939) Diagnoses Cellulitis of left upper extremity L03.114 Site of cellulitis: extremity Site of cellulitis of extremity: upper extremity Laterality: left
[2022-10-18 14:09] VITALS: BP 150/90; PULSE 88; O2SAT 98; BMI 21.4
== END 2022-10-18 14:34 | disposition home or self-care (01) ==
PROVIDERS: PCP Internal Medicine; Visit Provider Physician Assistant
DX: L03.114 Cellulitis of left upper limb (principal)
CPT/HCPCS: 99213

== ENCOUNTER 2022-10-24 11:55 | Outpatient (AMB) | payer OTHER, SELFPAY ==
--- NOTE | 2022-10-24 12:24 | AM.OFFWIN_ITS ---
Intake Vital Signs 10/24/22 12:25 Height 5 ft 8 in Weight 141 lb 8 oz BMI 21.5 BP 132/80 Blood Pressure Location Rt brachial Position Sitting Pulse 108 H Pulse Source Pulse Oximeter Temp 97.7 F Temp Source Temporal Artery Scan Pulse Oximetry (%) 99 Oxygen Delivery Method Room Air Intake Visit Reasons: EST/ongoing pain on shoulder Intake Note: Pt is here c/o pain in left shoulder for the last two weeks. Pt states he has a possible cyst with discharge on his left shoulder. Patient Tobacco Use Status: Current everyday Tobacco user Allergies No Known Allergies Allergy (Verified 10/27/22 10:54) Medication List - Last Reconciled 10/27/22 by Cliff Vaca MD amlodipine 10 mg PO DAILY benzonatate 100 mg PO BID PRN blood pressure monitor As directed blood sugar diagnostic (FreeStyle Lite Strips) As directed check the BS QD blood-glucose meter (FreeStyle Lite Meter kit) As directed check the BS QD cephalexin 500 mg PO QID 7 days cyanocobalamin (vitamin B-12) 1,000 mcg PO DAILY lancets (FreeStyle Lancets) As directed check the BS QD levothyroxine 25 mcg PO DAILY 30 days lisinopril 10 mg PO DAILY metformin 500 mg PO BIDWMEAL metoprolol succinate ER 25 mg PO DAILY 30 days omeprazole 40 mg PO DAILY prednisone 7 tabs x's 2 days, 6 tabs x's 2 days, 5 tabs x's 2 days, 4 tabs x's 2 days, 3 tabs x's 2 days, 2 tabs x's 2 days, then 10mg daily orally daily; 60 days prednisone 10 mg PO DAILY Do you need a note to return to daycare/school/sports/work: No HPI EST/ongoing pain on shoulder HPI Details 51-year-old male presents to the office for a sick visit. Patient has is swelling which is painful over the left shoulder. He has some discharge coming out from it. He was seen initially last week and antibiotics have not been helping much [facility] Medical History (Updated 10/27/22 @ 10:56 by Cliff Vaca MD) Shoulder abscess Annual physical exam Multinodular goiter Graves disease Elbow pain, left Hyperthyroidism Hypertension Surgical History History of knee surgery Family History Mother Myocardial infarct Breast cancer Social History Housing: House Alcohol intake: current Alcohol intake frequency: does not drink Patient Tobacco Use Status: Current everyday Tobacco user Tobacco use type: Cigarette Cigarettes Per Day: 5 e-Cigarette/Vaping Use: Never Used Second Hand Smoke Exposure: No Current occupational status: employed Cognitive needs: No Hearing needs: No Vision needs: No Physical Exam Vital Signs: Last Vital Signs Temp 97.7 F 10/24/22 12:25 Pulse 108 H 10/24/22 12:25 BP 132/80 10/24/22 12:25 Pulse Ox 99 10/24/22 12:25 Oxygen Delivery Method Room Air 10/24/22 12:25 BMI result Body Mass Index 21.5 Skin Other: Left shoulder: Purulent discharge from the swelling. The sebaceous cyst is now infected. Assessment & Plan Assessment & Plan (1) Infected sebaceous cyst of skin: Code(s): L72.3 - Sebaceous cyst; L08.9 - Local infection of the skin and subcutaneous tissue, unspecified Plan: The cyst is going to need drainage. A surgical appointment was requested and scheduled for the same day. Patient was instructed to follow-up with the surgeon. Orders: Orders XR chest 2V 10/24/22 R05.9 - Cough, unspecified Coding Level of Care Code Est Pt Level 3 (95221) Diagnoses Infected sebaceous cyst of skin L72.3; L08.9
[2022-10-24 12:25] VITALS: BP 132/80; PULSE 108; TEMP 36.5; O2SAT 99; BMI 21.5
== END 2022-10-24 15:47 | disposition home or self-care (01) ==
PROVIDERS: PCP Internal Medicine; Visit Provider Internal Medicine
DX: L72.3 Sebaceous cyst (principal); L08.9 Local infection of the skin and subcutaneous tissue, unspecified
CPT/HCPCS: 99213

== ENCOUNTER 2022-10-24 14:28 | Outpatient (AMB) | payer OTHER, SELFPAY ==
[2022-10-24 14:33] VITALS: BP 183/100; PULSE 80; BMI 21.3
--- NOTE | 2022-10-24 14:33 | A.OFFVIS_ITS ---
Intake Vital Signs 10/24/22 14:33 Height 5 ft 8 in Weight 140 lb BMI 21.3 BP 183/100 H Blood Pressure Location Rt brachial Position Sitting Pulse 80 Intake Visit Reasons: abscess left shoulder Intake Note: This patient was referred by for an assessment for an abscess on the left shoulder. Patient c/o; Onset 10-12 years, increased in size, reports currently on one round of abx Cephalexin 500 mg, left posterior shoulder. 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 Required: No Accompanied by: Self / Same As Patient Allergies No Known Allergies Allergy (Verified 10/24/22 14:34) Medication List - Last Reconciled 10/24/22 by Josue Bains MD amlodipine 10 mg PO DAILY benzonatate 100 mg PO BID PRN blood pressure monitor As directed blood sugar diagnostic (FreeStyle Lite Strips) As directed check the BS QD blood-glucose meter (FreeStyle Lite Meter kit) As directed check the BS QD cephalexin 500 mg PO QID 7 days cyanocobalamin (vitamin B-12) 1,000 mcg PO DAILY lancets (FreeStyle Lancets) As directed check the BS QD levothyroxine 25 mcg PO DAILY 30 days lisinopril 10 mg PO DAILY metformin 500 mg PO BIDWMEAL metoprolol succinate ER 25 mg PO DAILY 30 days omeprazole 40 mg PO DAILY prednisone 7 tabs x's 2 days, 6 tabs x's 2 days, 5 tabs x's 2 days, 4 tabs x's 2 days, 3 tabs x's 2 days, 2 tabs x's 2 days, then 10mg daily orally daily; 60 days prednisone 10 mg PO DAILY HPI abscess left shoulder HPI Details 51-year-old male referred for a left blas ulder abscess. He states that he has had a lump on this area for several years. However, about 2 weeks ago, this became swollen and had been draining recently. He says that his been tender with some redness as well. He was therefore referred to me by his primary care physician. He said that he had been started on antibiotics orally. [facility] Medical History (Updated 10/24/22 @ 15:19 by Josue Bains MD) Shoulder abscess Annual physical exam Multinodular goiter Graves disease Elbow pain, left Hyperthyroidism Hypertension Surgical History History of knee surgery Family History Mother Myocardial infarct Breast cancer Social History Housing: House Alcohol intake: current Alcohol intake frequency: does not drink Patient Tobacco Use Status: Current everyday Tobacco user Tobacco use type: Cigarette Cigarettes Per Day: 5 e-Cigarette/Vaping Use: Never Used Second Hand Smoke Exposure: No Current occupational status: employed Cognitive needs: No Hearing needs: No Vision needs: No Review of Systems Const Denies chills and Denies fever(s) Card Denies chest pain, Denies dyspnea and Denies dyspnea on exertion Resp Denies cough, Denies dyspnea and Denies dyspnea on exertion GI Denies hematochezia and Denies change in bowel habits Denies hematuria and Denies difficulty urinating Musc Denies back pain and Denies limited range of motion Neuro Denies focal weakness and Denies convulsions Psych Denies depression and Denies mood swings Physical Exam Vital Signs: Last Vital Signs Pulse 80 10/24/22 14:33 BP 183/100 H 10/24/22 14:33 BMI result Body Mass Index 21.3 Const General: comfortable and no acute distress Orientation/consciousness: patient oriented x3 Neck Neck: Yes no lymphadenopathy Resp Auscultation: clear to auscultation bilaterally Cardio Rhythm: regular rhythm GI Palpation (GI): Soft to palpation, nontender and no guarding Back/Spine/Pelvis Other: Left shoulder with a fluctuant mass, about 3 cm, with some drainage from the mi ddle, redness of the skin Neuro General: patient oriented x3 Office Procedures I&D Drain Details: He was placed in prone position. The area of the abscess was prepped and draped. Lidocaine 1% was used for local anesthesia. I made a cruciate incision on the skin overlying this abscess using blade 15. The abscess cavity was entered easily. Large amounts of pus was drained. I proceeded to excise the cyst capsule as well and the entire contents of the cavity using hemostat. I applied a light packing. Dressings were applied. He tolerated procedure well. There were no immediate complications. There was minimal blood loss. [id number] of Skin Abscess, complex All charges added?: Procedure code (CPT) selection complete Assessment & Plan Assessment & Plan (1) Shoulder abscess: Code(s): L02.419 - Cutaneous abscess of limb, unspecified Plan: He has had abscess in the shoulder as described above likely from an infected epidermal inclusion cyst. I described to him the benefit of proceeding with I&D at this time under local anesthesia. I discussed the technique of this procedure as well as the risks, benefits and alternatives and had given consent I&D was done and he tolerated this well. We were able to remove the cyst capsule as well. I applied a light packing. I gave him wound care instructions. He is to change dressings daily. I can see him in the office on a p.r.n. basis. Coding Level of Care Code New Pt Level 3 (25930) Diagnoses Shoulder abscess L02.419 CPT Codes I&D Drain - Drain 2: [id number] of Skin Abscess, complex ([id number])
== END 2022-10-24 15:13 | disposition home or self-care (01) ==
PROVIDERS: PCP Internal Medicine; Visit Provider Surgery
DX: L02.414 Cutaneous abscess of left upper limb (principal)
CPT/HCPCS: 99203

== ENCOUNTER → 2022-10-24 14:28 | Outpatient (BNVA) | payer OTHER, SELFPAY | PROVIDERS: PCP Internal Medicine; Visit Provider Surgery | DX: L02.414 Cutaneous abscess of left upper limb (principal) | CPT/HCPCS: 11403 ==

== ENCOUNTER 2022-11-09 08:50 | Outpatient (AMB) | payer OTHER, SELFPAY ==
[2022-11-09 08:55] VITALS: BP 138/82; PULSE 86; O2SAT 99; BMI 21.9
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
== END 2022-11-09 09:32 | disposition home or self-care (01) ==
PROVIDERS: PCP Internal Medicine; Visit Provider Nurse Practitioner Family
DX: E11.65 Type 2 diabetes mellitus with hyperglycemia (principal)
CPT/HCPCS: 83036; 99213

== ENCOUNTER 2022-11-20 10:37 | Outpatient (AMB) | payer OTHER, SELFPAY ==
[2022-11-20 10:46] VITALS: BP 162/78; PULSE 79; O2SAT 97; BMI 22.0
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
== END 2022-11-20 11:32 | disposition home or self-care (01) ==
PROVIDERS: PCP Internal Medicine; Visit Provider Internal Medicine
DX: Z00.00 Encounter for general adult medical examination without abnormal findings (principal); E11.65 Type 2 diabetes mellitus with hyperglycemia; I10 Essential (primary) hypertension; Z72.0 Tobacco use; Z23 Encounter for immunization; E03.9 Hypothyroidism, unspecified; E78.00 Pure hypercholesterolemia, unspecified; H05.129 Orbital myositis, unspecified orbit; H91.90 Unspecified hearing loss, unspecified ear; N52.9 Male erectile dysfunction, unspecified
CPT/HCPCS: 90471; 90686; 99396

== ENCOUNTER 2022-12-07 10:24 | Outpatient (REF) | payer OTHER, SELFPAY ==
[2022-12-07 10:39] LABS: MANUAL DIFF FLAG NO
[2022-12-07 11:00] LABS: Basophils Absolute Auto 0.1 X10*3/uL (0.0-0.2); Basophils Percent Auto 0.7 % (0-2); Eosinophils Absolute Auto 0.2 X10*3/uL (0.0-0.4); Eosinophils Percent Auto 3.1 % (0-4); Hematocrit 35.6 % (42.0-52.0); Hemoglobin 11.7 g/dl (14.0-18.0); Imm Gran Abs Auto 0.03 X10*3/uL (0.00-0.03); Imm Gran Pct Auto 0.4 % (0.0-0.4); Immature Retic Fraction 12.2 % (2.3-13.4); Lymphocytes Absolute Auto 2.3 X10*3/uL (1.2-4.9); Mean Corpuscular HGB Conc 32.9 g/dl (31.0-36.0); Mean Corpuscular Hemoglobin 30.6 pg (27.0-33.0); Mean Corpuscular Volume 93.2 fL (80.0-98.0); Mean Platelet Volume 9.6 fL (9.4-12.4); Monocytes Absolute Auto 0.6 X10*3/uL (0.1-1.2); Monocytes Percent Auto 8.6 % (2-11); Neutrophils Absolute Auto 4.2 x10*3/uL (2.0-8.3); Neutrophils Percent Auto 56.2 % (45-73); Platelet Count 245 X10*3/uL (160-400); Red Blood Count 3.82 X10*6/uL (4.60-5.80); Red Cell Distribution Width 12.2 % (11.0-16.0); Retic HGB Equivalent 32.9 pg (30.0-35.0); Reticulocyte Percent 1.2 % (0.5-1.8); Reticulocytes Absolute 0.047 X10*6/uL (0.026-0.095); White Blood Count 7.4 X10*3/uL (4.8-10.8)
[2022-12-07 12:41] LABS: Alanine Aminotransferase 21 U/L (0-40); Albumin Level 4.4 g/dL (3.5-5.0); Alkaline Phosphatase 68 U/L (39-117); Anion Gap 12 (12-20); Aspartate Amino Transferase 20 U/L (5-37); Bilirubin Total 0.4 mg/dL (0.0-1.0); Blood Urea Nitrogen 12 mg/dL (9-16); Calcium 10.7 mg/dL (8.4-10.2); Carbon Dioxide 24 mmol/L (22-29); Chloride 108 mmol/L (96-108); Cholesterol 174 mg/dL (<200); Estimated Glomerular Filt Rate 57; Glucose Random 130 mg/dL (60-115); HDL Cholesterol 42 mg/dL (>40); Iron 63 mcg/dL (45-160); LDL Cholesterol Calculated 103 mg/dL (<100); Percent Iron Saturation 23 % (15-50); Potassium 4.4 mmol/L (3.3-5.1); Sodium 140 mmol/L (135-145); Total Iron Binding Capacity 280 mcg/dL (228-428); Total Protein 7.4 g/dL (6.5-8.0); Triglycerides 145 mg/dL (<150); Unsaturated Iron Binding 217 ug/dL
[2022-12-07 12:58] LABS: Ferritin 55 ng/mL (20-250); Free T4 (Free Thyroxine) 1.01 ng/dL (0.71-1.85); Thyroid Stimulating Hormone 4.36 uIU/mL (0.32-4.0)
[2022-12-07 13:14] LABS: Vitamin B12 424 pg/mL (200-900)
[2022-12-07 13:33] LABS: Creatinine Urine 117.61 mg/dL; Microalbum/Creatinine Ratio Ur 10.2 ug/mg cr (<30)
== END 2022-12-07 10:25 | disposition home or self-care (01) ==
LOC: HO.LAB 10:24
PROVIDERS: PCP Internal Medicine; Visit Provider Internal Medicine
DX: E11.65 Type 2 diabetes mellitus with hyperglycemia (principal); E78.00 Pure hypercholesterolemia, unspecified; E03.9 Hypothyroidism, unspecified; E05.00 Thyrotoxicosis with diffuse goiter without thyrotoxic crisis or storm; D64.9 Anemia, unspecified
CPT/HCPCS: 36415; 80053; 80061; 82043; 82570; 82607; 82728; 82746; 83540; 84439; 84443; 85025; 85045

== ENCOUNTER 2023-03-12 09:39 | Outpatient (AMB) | payer OTHER, SELFPAY ==
[2023-03-12 09:40] VITALS: BP 132/70; PULSE 76; O2SAT 99; BMI 22.7
--- NOTE | 2023-03-12 09:40 | MHC.PC.OV ---
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 Last seen in November 2022. Patient is up-to-date with colonoscopy. complain of tip of nose pain deny fall -= 2months and no discharge , bilateral ear pain L more thatn right, hearing is good [facility] Medical History (Updated 03/12/23 @ 10:29 by Zenobia Dougherty MD) Colon cancer screening Annual physical exam Shoulder abscess Multinodular goiter Graves disease Elbow pain, left Hyperthyroidism Hypertension Surgical History History of knee surgery Family History (Updated 11/20/22 @ 11:11 by Zenobia Dougherty MD) Mother Myocardial infarct Breast cancer Father Myocardial infarct Social History (Updated 11/20/22 @ 11:11 by Zenobia Dougherty MD) Housing: House Alcohol intake: current Alcohol intake frequency: does not drink Patient Tobacco Use Status: Current someday Tobacco user Tobacco use type: Cigarette Cigarettes Per Day: 2 Years Smoked: WORKING ON [employer] 1 a day (11/2022) e-Cigarette/Vaping Use: Never Used Second Hand Smoke Exposure: No Current occupational status: employed Cognitive needs: No Hearing needs: No Vision needs: No Questionnaire Thrive Questionnaire Date Thrive assessed: 03/12/23 I am a: Patient What is your living situation today?: I have a steady place to live Within the past 12 months, did the food you bought not last and you didn't have the money to get more?: Never true Within the past 12 months, did you worry whether your food would run out before you got money to buy more?: Never true Do you have trouble paying for medicines?: No Do you have trouble getting transportation to medical appointments?: No Do you have trouble paying your heating and electricity bill?: No Do you have trouble taking care of your child, family member or friend?: No Do you have trouble with day-to-day activities such as bathing, preparing meals, shopping, managing finances, etc.?: No Are you currently unemployed and looking for a job?: No Are you interested in more education?: No Please select the resources that you would like help with: None THRIVE Score: 0 AUDIT C Alcohol Use Questionnaire (AUDIT-C) 1. How often do you have a drink containing alcohol?: Never 2. How many drinks containing alcohol do you have on a typical day when you are drinking?: 1 or 2 (0) 3. How often do you have six or more drinks on one occasion?: Never Total Score: 0 Score Reviewed/Action Taken: No LUIZ-7 AMB Questionnaire LUIZ-7 Date LUIZ - 7 assessed: 03/12/23 Source: Developed by Drs. Frank Cota, Bhumi Green, Jabari Mustafa and colleagues, with an educational baylee from [employer]. Physical exam (Primary Care) Vital Signs: Last Vital Signs Pulse 76 03/12/23 09:40 BP 132/70 03/12/23 09:40 Pulse Ox 99 03/12/23 09:40 Oxygen Delivery Method Room Air 03/12/23 09:40 BMI result Body Mass Index 22.7 Tobacco/Smoking Status: Tobacco use Status Tobacco use date assessed 03/12/23 03/12/23 09:42 Patient Tobacco Use Status Current someday Tobacco 03/12/23 09:42 Tobacco use type Cigarette 03/12/23 09:42 e-Cigarette/Vaping Use Never Used 03/12/23 09:42 Thrive Assessment: Date of Thrive Assessment Date Thrive assessed 03/12/23 03/12/23 09:42 Const General: alert; No acute distress Eyes Conjunctivae: conjunctivae normal Resp Auscultation: clear to auscultation bilaterally Cardio Rate: regular rate Rhythm: regular rhythm GI Inspection: Yes normal to inspection Extrem General: Yes normal to inspection and No edema Results AMB Hemoglobin A1c AMB Hemoglobin A1c 6.8 % Last Edit by MARQUITA Parker on 03/12/23 09:57 Results Reviewed Results Reviewed: Laboratory Last Values Hgb A1c (Clinic) 6.8 % (4.0-6.0) H 03/12/23 09:05 Assessment and Plan Assessment & Plan (1) Type 2 diabetes mellitus with hyperglycemia: Code(s): E11.65 - Type 2 diabetes mellitus with hyperglycemia Qualifiers: Diabetes mellitus manager intermediate insulin use: without skilled nursing use Qualified Code(s): E11.65 - Type 2 diabetes mellitus with hyperglycemia Plan: Decrease the amount of carbohydrate intake, pasta, bread, rice and potatoes are all sugar and that is aside from all the sweet stuff, remember that fruits are good but they are Sweet also. Hemoglobin A1c goal of less than 6.5. Patient on metformin 500 mg twice a day (2) Tobacco abuse: Code(s): Z72.0 - Tobacco use Plan: Strongly advised to stop smoking! (3) Hypertension: Code(s): I10 - Essential (primary) hypertension Plan: Continue with blood pressure medication. Decrease salt intake and exercise patient on metoprolol 25 mg once a day (4) Hypothyroid: Code(s): E03.9 - Hypothyroidism, unspecified Plan: Advised to monitor thyroid blood test. (5) Anemia: Code(s): D64.9 - Anemia, unspecified Qualifiers: Anemia type: unspecified type Qualified Code(s): D64.9 - Anemia, unspecified Plan: Continue to monitor and advised repeat blood work (6) Hypercholesterolemia: Code(s): E78.00 - Pure hypercholesterolemia, unspecified Plan: Avoid fried foods, chicken skin, eggs, butter margarine, pastries and meat. Be it pork or beef they have a lot of cholesterol LDL goal of less than 100 and triglyceride of less than 150. Patient was advised to get blood work. (7) Eczema of external ear: Code(s): H60.549 - Acute eczematoid otitis externa, unspecified ear Plan: Some scaly rash but no earwax and TM intact. Advised to get some Cortaid or hydrocortisone cream to put on the rash. (8) Pain, nose: Code(s): J34.89 - Other specified disorders of nose and nasal sinuses Plan: Did not appreciate any problem and declined referral to ear nose and throat. Will let me know if there is a problem. Orders: Orders AMB Hemoglobin A1c Today E11.65 - Type 2 diabetes mellitus with hyperglycemia Complete Blood Count Auto Diff Today D64.9 - Anemia, unspecified Ferritin Today D64.9 - Anemia, unspecified Lipid Panel Today E78.00 - Pure hypercholesterolemia, unspecified Comprehensive Met. Panel Today E78.00 - Pure hypercholesterolemia, unspecified Free T4 (Free Thyroxine) Today E03.9 - Hypothyroidism, unspecified, E05.00 - Thyrotoxicosis with diffuse goiter without thyrotoxic crisis or storm Thyroid Stimulating Hormone Today E03.9 - Hypothyroidism, unspecified, E05.00 - Thyrotoxicosis with diffuse goiter without thyrotoxic crisis or storm IRON PROFILE Today D64.9 - Anemia, unspecified Reticulocyte Count Today D64.9 - Anemia, unspecified Vitamin B12 and Folate Today D64.9 - Anemia, unspecified Medications: Changed From metformin 500 mg PO BIDWMEAL 60 tabs 4RF E11.65 - Type 2 diabetes mellitus with hyperglycemia To metformin orally WITH MEAL; 1000 mg in am and 500 in pm 90 tabs 4RF 30 days E11.65 - Type 2 diabetes mellitus with hyperglycemia Coding Level of Care Code Est Pt Level 4 (02661) Diagnoses Type 2 diabetes mellitus with hyperglycemia, without long-term current use of insulin E1165 Diabetes mellitus skilled nursing insulin use: without skilled nursing use Tobacco abuse Z72.0 Hypertension I10 Hypothyroid E03.9 Anemia, unspecified type D64.9 Anemia type: unspecified type Hypercholesterolemia E78.00 Eczema of external ear H60.549 Pain, nose J34.89
== END 2023-03-12 10:30 | disposition home or self-care (01) ==
PROVIDERS: PCP Internal Medicine; Visit Provider Internal Medicine
DX: E11.65 Type 2 diabetes mellitus with hyperglycemia (principal); Z72.0 Tobacco use; I10 Essential (primary) hypertension; E03.9 Hypothyroidism, unspecified; D64.9 Anemia, unspecified; E78.00 Pure hypercholesterolemia, unspecified; H60.549 Acute eczematoid otitis externa, unspecified ear; J34.89 Other specified disorders of nose and nasal sinuses
CPT/HCPCS: 83036; 99214

== ENCOUNTER 2023-03-12 10:43 | Outpatient (REF) | payer OTHER, SELFPAY ==
[2023-03-12 11:02] LABS: MANUAL DIFF FLAG NO
[2023-03-12 11:17] LABS: Basophils Percent Auto 0.5 % (0-2); Eosinophils Absolute Auto 0.2 X10*3/uL (0.0-0.4); Eosinophils Percent Auto 2.5 % (0-4); Hematocrit 39.2 % (42.0-52.0); Hemoglobin 12.9 g/dl (14.0-18.0); Imm Gran Abs Auto 0.03 X10*3/uL (0.00-0.03); Imm Gran Pct Auto 0.3 % (0.0-0.4); Immature Retic Fraction 15.5 % (2.3-13.4); Lymphocytes Percent Auto 22.3 % (20-40); Mean Corpuscular HGB Conc 32.9 g/dl (31.0-36.0); Mean Corpuscular Hemoglobin 30.4 pg (27.0-33.0); Mean Corpuscular Volume 92.5 fL (80.0-98.0); Mean Platelet Volume 10.3 fL (9.4-12.4); Monocytes Absolute Auto 0.6 X10*3/uL (0.1-1.2); Monocytes Percent Auto 6.6 % (2-11); Neutrophils Percent Auto 67.8 % (45-73); Platelet Count 257 X10*3/uL (160-400); Red Blood Count 4.24 X10*6/uL (4.60-5.80); Red Cell Distribution Width 12.5 % (11.0-16.0); Reticulocyte Percent 1.4 % (0.5-1.8); Reticulocytes Absolute 0.061 X10*6/uL (0.026-0.095); White Blood Count 8.9 X10*3/uL (4.8-10.8)
[2023-03-12 11:54] LABS: Alanine Aminotransferase 20 U/L (0-40); Albumin Level 4.6 g/dL (3.5-5.0); Alkaline Phosphatase 66 U/L (39-117); Anion Gap 12 (12-20); Aspartate Amino Transferase 18 U/L (5-37); Bilirubin Total 0.5 mg/dL (0.0-1.0); Blood Urea Nitrogen 15 mg/dL (9-16); Calcium 10.5 mg/dL (8.4-10.2); Carbon Dioxide 24 mmol/L (22-29); Chloride 108 mmol/L (96-108); Cholesterol 180 mg/dL (<200); Estimated Glomerular Filt Rate 52; Glucose Random 157 mg/dL (60-115); HDL Cholesterol 46 mg/dL (>40); Iron 85 mcg/dL (45-160); LDL Cholesterol Calculated 99 mg/dL (<100); Percent Iron Saturation 29 % (15-50); Potassium 4.9 mmol/L (3.3-5.1); Sodium 139 mmol/L (135-145); Total Iron Binding Capacity 295 mcg/dL (228-428); Total Protein 7.7 g/dL (6.5-8.0); Triglycerides 177 mg/dL (<150); Unsaturated Iron Binding 210 ug/dL
[2023-03-12 12:08] LABS: Ferritin 46 ng/mL (20-250); Free T4 (Free Thyroxine) 0.97 ng/dL (0.71-1.85); Thyroid Stimulating Hormone 3.99 uIU/mL (0.32-4.0)
[2023-03-12 12:18] LABS: Folate 8.1 ng/mL (> or = 4.0); Vitamin B12 299 pg/mL (200-900)
[2023-03-14 16:09] LABS: Calcium, Ionized 5.6 mg/dL (4.7-5.5)
== END 2023-03-12 10:44 | disposition home or self-care (01) ==
LOC: HO.LAB 10:43
PROVIDERS: PCP Internal Medicine; Visit Provider Internal Medicine
DX: E11.65 Type 2 diabetes mellitus with hyperglycemia (principal); E03.9 Hypothyroidism, unspecified; E78.00 Pure hypercholesterolemia, unspecified; D64.9 Anemia, unspecified; E83.52 Hypercalcemia
CPT/HCPCS: 36415; 80053; 80061; 82330; 82570; 82607; 82728; 82746; 83540; 84439; 84443; 85025; 85045

== ENCOUNTER 2023-06-17 09:34 | Outpatient (AMB) | payer OTHER, SELFPAY ==
[2023-06-17 09:35] VITALS: BP 140/82; PULSE 82; O2SAT 99; BMI 21.9
--- NOTE | 2023-06-17 09:35 | MHC.PC.OV ---
Vital Signs 06/17/23 09:35 Height 5 ft 8 in Weight 144 lb 0.8 oz BMI 21.9 BP 140/82 H Blood Pressure Location Lt brachial Position Sitting Pulse 82 Pulse Source Pulse Oximeter Pulse Oximetry (%) 99 Oxygen Delivery Method Room Air Intake Visit Reasons: DM Intake Note: Patient is here to follow up on DM Chain Maker Hand Required: No Allergies No Known Allergies Allergy (Verified 06/17/23 09:36) Tobacco use date assessed: 06/17/23 Dental Screening Dental Screen Date: 03/12/23 HPI DM HPI Details 52-year-old male smoker with controlled diabetes mellitus hypertension hypothyroidism hypercholesterolemia chronic anemia coming in for follow-up. Last seen in February 2023. Patient's colonoscopy is up-to-date August 2022 5-7 years. [facility] Medical History (Updated 03/12/23 @ 10:29 by Zenobia Dougherty MD) Colon cancer screening Annual physical exam Shoulder abscess Multinodular goiter Graves disease Elbow pain, left Hyperthyroidism Hypertension Surgical History History of knee surgery Family History (Updated 11/20/22 @ 11:11 by Zenobia Dougherty MD) Mother Myocardial infarct Breast cancer Father Myocardial infarct Social History (Updated 11/20/22 @ 11:11 by Zenobia Dougherty MD) Housing: House Alcohol intake: current Alcohol intake frequency: does not drink Patient Tobacco Use Status: Current someday Tobacco user Tobacco use type: Cigarette Cigarettes Per Day: 2 Years Smoked: WORKING ON [employer] 1 a day (11/2022) e-Cigarette/Vaping Use: Never Used Second Hand Smoke Exposure: No Current occupational status: employed Cognitive needs: No Hearing needs: No Vision needs: No Questionnaire Thrive Questionnaire Date Thrive assessed: 03/12/23 LUIZ-7 AMB Questionnaire LUIZ-7 Date LUIZ - 7 assessed: 03/12/23 Source: Developed by Drs. Frank Cota, Bhumi Green, Jabari Mustafa and colleagues, with an educational baylee from [employer]. Physical exam (Primary Care) Vital Signs: Last Vital Signs Pulse 82 06/17/23 09:35 BP 140/82 H 06/17/23 09:35 Pulse Ox 99 06/17/23 09:35 Oxygen Delivery Method Room Air 06/17/23 09:35 BMI result Body Mass Index 21.9 Tobacco/Smoking Status: Tobacco use Status Tobacco use date assessed 06/17/23 06/17/23 09:36 Patient Tobacco Use Status Current someday Tobacco 06/17/23 09:36 Tobacco use type Cigarette 06/17/23 09:36 e-Cigarette/Vaping Use Never Used 06/17/23 09:36 Thrive Assessment: Date of Thrive Assessment Date Thrive assessed 03/12/23 06/17/23 09:36 Const General: alert; No acute distress Eyes Conjunctivae: conjunctivae normal Resp Auscultation: clear to auscultation bilaterally Cardio Rate: regular rate Rhythm: regular rhythm GI Inspection: Yes normal to inspection Extrem General: Yes normal to inspection and No edema Results AMB Hemoglobin A1c AMB Hemoglobin A1c 6.3 % Last Edit by MARQUITA Parker on 06/17/23 10:03 Results Reviewed Results Reviewed: Laboratory Last Values Hgb A1c (Clinic) 6.3 % (4.0-6.0) H 06/17/23 09:26 Assessment and Plan Assessment & Plan (1) Type 2 diabetes mellitus with hyperglycemia: Code(s): E11.65 - Type 2 diabetes mellitus with hyperglycemia Qualifiers: Diabetes mellitus senior living insulin use: without senior living use Qualified Code(s): E11.65 - Type 2 diabetes mellitus with hyperglycemia Plan: Decrease the amount of carbohydrate intake, pasta, bread, rice and potatoes are all sugar and that is aside from all the sweet stuff, remember that fruits are good but they are Sweet also. Hemoglobin A1c goal of less than 6.5 on metformin only doing good on this. (2) Tobacco abuse: Code(s): Z72.0 - Tobacco use Plan: Patient is strongly advised to stop smoking! Patient relates to me that he is still smoking 3 cigarettes a day. Discussed on needing to stop. (3) Hypertension: Code(s): I10 - Essential (primary) hypertension Plan: Continue with blood pressure medication. Decrease salt intake and exercise takes metoprolol 25 mg once a day. Discussed with the patient lengthily regarding my concerns about the blood pressure. Blood pressure is elevated I got 180/90. Advised to add lisinopril to the metoprolol blood pressure medication and will follow up in 2 months. Advised also to get blood work 1 month after (4) Anemia: Code(s): D64.9 - Anemia, unspecified Qualifiers: Anemia type: unspecified type Qualified Code(s): D64.9 - Anemia, unspecified Plan: Continuing to monitor, stable (5) Hypothyroid: Code(s): E03.9 - Hypothyroidism, unspecified Plan: Continue with thyroid medication. Patient did see endocrinology already before continuing with present medication (6) Hypercholesterolemia: Code(s): E78.00 - Pure hypercholesterolemia, unspecified Plan: Avoid fried foods, chicken skin, eggs, butter margarine, pastries and meat. Be it pork or beef they have a lot of cholesterol LDL goal of less than 100 and triglyceride of less than 150. February 2023 last tested. Orders: Orders Comprehensive Met. 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
== END 2023-06-17 10:35 | disposition home or self-care (01) ==
PROVIDERS: PCP Internal Medicine; Visit Provider Internal Medicine
DX: E11.65 Type 2 diabetes mellitus with hyperglycemia (principal); Z72.0 Tobacco use; I10 Essential (primary) hypertension; D64.9 Anemia, unspecified; E03.9 Hypothyroidism, unspecified; E78.00 Pure hypercholesterolemia, unspecified
CPT/HCPCS: 83036; 99214

== ENCOUNTER 2023-06-17 10:54 | Outpatient (REF) | payer OTHER, SELFPAY ==
[2023-06-17 12:10] LABS: Parathyroid Hormone Intact 77.8 pg/mL (8.7-77.1)
[2023-06-17 12:25] LABS: Free T4 (Free Thyroxine) 1.06 ng/dL (0.71-1.85); Thyroid Stimulating Hormone 4.26 uIU/mL (0.32-4.0)
== END 2023-06-17 10:55 | disposition home or self-care (01) ==
LOC: HO.LAB 10:54
PROVIDERS: PCP Internal Medicine; Visit Provider Internal Medicine
DX: E05.00 Thyrotoxicosis with diffuse goiter without thyrotoxic crisis or storm (principal); E03.9 Hypothyroidism, unspecified
CPT/HCPCS: 36415; 83970; 84439; 84443

== ENCOUNTER 2023-07-24 12:59 | Outpatient (AMB) | payer OTHER, SELFPAY ==
[2023-07-24 13:02] VITALS: BP 170/96; PULSE 86; TEMP 36.6; O2SAT 98
--- NOTE | 2023-07-24 13:02 | MHC.OFFWIV ---
Intake Vital Signs 07/24/23 13:02 Height 5 ft 8 in BP 170/96 H Blood Pressure Location Lt brachial Position Sitting Pulse 86 Pulse Source Pulse Oximeter Temp 97.8 F Temp Source Oral Pulse Oximetry (%) 98 Intake Visit Reasons: EP LT foot swelling Intake Note: pt is here for left foot swelling Patient Tobacco Use Status: Current someday Tobacco user Allergies No Known Allergies Allergy (Verified 07/24/23 13:03) Do you need a note to return to daycare/school/sports/work: No HPI HPI Comments History of Present Illness Details Patient is a 52yo M who presents with L foot pain Ongoing since last night No pain scale given He fell walking up the stairs Denies HT or LOC Pain located to L foot with swelling No pain elsewhere Used tumeric and wrapped it this am which helped No medicine orally taken for discomfort + walking on it PFSH Medical History (Updated 07/24/23 @ 13:13 by Leilani Velasquez PA-C) Colon cancer screening Annual physical exam Shoulder abscess Multinodular goiter Graves disease Elbow pain, left Hyperthyroidism Hypertension Surgical History History of knee surgery Family History (Updated 11/20/22 @ 11:11 by Zenobia Dougherty MD) Mother Myocardial infarct Breast cancer Father Myocardial infarct Social History (Updated 11/20/22 @ 11:11 by Zenobia Dougherty MD) Housing: House Alcohol intake: current Alcohol intake frequency: does not drink Patient Tobacco Use Status: Current someday Tobacco user Tobacco use type: Cigarette Cigarettes Per Day: 2 Years Smoked: WORKING ON [employer] 1 a day (11/2022) e-Cigarette/Vaping Use: Never Used Second Hand Smoke Exposure: No Current occupational status: employed Cognitive needs: No Hearing needs: No Vision needs: No Review of Systems Musc Reports as per HPI (L foot pain), Denies stiffness and Denies tingling Skin/Breast Reports skin swelling (L foot) Neuro Denies tingling Physical Exam Vital Signs: Last Vital Signs Temp 97.8 F 07/24/23 13:02 Pulse 86 07/24/23 13:02 BP 170/96 H 07/24/23 13:02 Pulse Ox 98 07/24/23 13:02 General: Non-toxic, NAD. Speaking full sentences. Skin: Warm dry throughout. + edema dorsal aspect L foot without overt ecchymosis or erythema appreciated. No open wounds Respiratory: No respiratory distress Cardiac: DP pulse intact L foot MSK: No bony tenderness L knee, proximal tib/fib, medial/lateral malleoli, calcaneus or achilles. + tenderness to palpation proximal 1st-3rd metatarsal bones. No digit tenderness to palpation L foot Neurology: A/O. No aphasia or facial droop. Psych: Good mood and affect Assessment & Plan Assessment & Plan (1) Foot pain, left: Code(s): M79.672 - Pain in left foot Plan: Xray L foot: I believe he has a cuneiform bone fx Verbal concent obtained and pt placed in short posterior leg splint using orthoglass and flakita. Neurovasc intact prior and post application Rest, ice and elevate Ortho follow up. Crutches and non-weight bearing Patient gave verbal understanding and had no additional questions or concerns at time of discharge All questions answeredTylenol/Motrin prn 4:22 PM the xray was negative. I called the pt to inform him. He will follow up with ortho Orders: Orders XR foot LT min 3V Today M79.672 - Pain in left foot Referrals Orthopedics Referral M79.672 - Pain in left foot Coding Level of Care Code Est Pt Level 3 (01807) Diagnoses Foot pain, left M79.672
== END 2023-07-24 14:03 | disposition home or self-care (01) ==
PROVIDERS: PCP Internal Medicine; Visit Provider Physician Assistant
DX: M79.672 Pain in left foot (principal)
CPT/HCPCS: 99213

== ENCOUNTER 2023-07-24 13:17 | Outpatient (REF) | payer OTHER, SELFPAY ==
--- NOTE | ~2023-07-24 | XR_ITS ---
EXAMINATION: XR FOOT, LEFT CLINICAL INFORMATION: Left foot pain COMPARISON: None available. TECHNIQUE: AP, lateral, and oblique views of the left foot. FINDINGS: BONES: Bony structures are intact. There is no focal bone destruction or periosteal reaction seen. JOINTS: Alignment of joints is normal. SOFT TISSUE: Soft tissue is normal. No radiopaque foreign body or abnormal air collection is seen. XR/XR foot LT min 3V IMPRESSION: 1. Normal x-rays of left foot. No fracture or dislocation or signs of osteomyelitis are found.
== END 2023-07-24 13:18 | disposition home or self-care (01) ==
LOC: HO.HMGCX 13:17
PROVIDERS: Visit Provider Physician Assistant
DX: M79.672 Pain in left foot (principal)
CPT/HCPCS: 73630

== ENCOUNTER 2023-08-16 15:11 | Outpatient (REF) | payer OTHER, SELFPAY | END 2023-08-16 15:12 | disposition home or self-care (01) | LOC: HO.HOSX 15:11 | DX: Z13.89 Encounter for screening for other disorder (principal) ==

== ENCOUNTER 2023-08-19 10:34 | Outpatient (REF) | payer OTHER, SELFPAY | END 2023-08-19 10:35 | disposition home or self-care (01) | LOC: HO.HOSX 10:34 | DX: Z13.89 Encounter for screening for other disorder (principal) ==

== ENCOUNTER 2023-11-06 09:43 | Outpatient (AMB) | payer OTHER, SELFPAY ==
[2023-11-06 09:51] VITALS: BP 180/92; PULSE 65; O2SAT 99; BMI 20.7
--- NOTE | 2023-11-06 09:51 | MHC.PC.OV ---
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 Patient is here for follow-up. Patient's colonoscopy is up-to-date August 2022. Patient had a normal x-ray of left foot. Was in the Urgent [facility] in 07/24/2023 fell walking up the stairs. Patient complains of left upper back pain left lower quadrant pain and lower back pain deny any fall or trauma but has been lifting heavy things which I told the patient not to do. Patient also complains having constipation. Noted loss of appetite tense the weight loss and concern that he is not doing this intentionally. [facility] Medical History (Updated 11/06/23 @ 10:25 by Zenobia Dougherty MD) Colon cancer screening Annual physical exam Shoulder abscess Multinodular goiter Graves disease Elbow pain, left Hyperthyroidism Hypertension Surgical History History of knee surgery Family History Mother Myocardial infarct Breast cancer Father Myocardial infarct Social History Housing: House Alcohol intake: current Alcohol intake frequency: does not drink Patient Tobacco Use Status: Current someday Tobacco user Tobacco use type: Cigarette Cigarettes Per Day: 2 Years Smoked: WORKING ON [employer] 1 a day (11/2022) e-Cigarette/Vaping Use: Never Used Second Hand Smoke Exposure: No service: No Current occupational status: employed Current occupational exposures/hazards: No Cognitive needs: No Hearing needs: No Vision needs: No Questionnaire Thrive Questionnaire Date Thrive assessed: 03/12/23 LUIZ-7 AMB Questionnaire LUIZ-7 Date LUIZ - 7 assessed: 03/12/23 Source: Developed by Drs. Frank Cota, Bhumi Green, Jabari Mustafa and colleagues, with an educational baylee from [email or web address]. Physical exam (Primary Care) Vital Signs: Last Vital Signs Pulse 65 11/06/23 09:51 BP 180/92 H 11/06/23 09:51 Pulse Ox 99 11/06/23 09:51 Oxygen Delivery Method Room Air 11/06/23 09:51 BMI result Body Mass Index 20.7 Tobacco/Smoking Status: Tobacco use Status Tobacco use date assessed 06/17/23 11/06/23 09:55 Patient Tobacco Use Status Current someday Tobacco 11/06/23 09:55 Tobacco use type Cigarette 11/06/23 09:55 e-Cigarette/Vaping Use Never Used 11/06/23 09:55 Thrive Assessment: Date of Thrive Assessment Date Thrive assessed 03/12/23 11/06/23 09:55 Const General: alert; No acute distress Eyes Conjunctivae: conjunctivae normal Resp Auscultation: clear to auscultation bilaterally Cardio Rate: regular rate Rhythm: regular rhythm GI Inspection: Yes normal to inspection Extrem General: Yes normal to inspection and No edema Results AMB Hemoglobin A1c AMB Hemoglobin A1c 5.8 % Last Edit by MARQUITA Ordonez on 11/06/23 10:02 Results Reviewed Results Reviewed: Laboratory Last Values Hgb A1c (Clinic) 5.8 % (4.0-6.0) 11/06/23 09:51 Assessment and Plan Assessment & Plan (1) Type 2 diabetes mellitus with hyperglycemia: Code(s): E11.65 - Type 2 diabetes mellitus with hyperglycemia Qualifiers: 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 Hemoglobin A1c goal of less than 6.5. Patient on metformin but will need repeat blood work for renal function. (2) Tobacco abuse: Code(s): Z72.0 - Tobacco use Plan: Patient is strongly advised to stop smoking (3) Hypertension: Code(s): I10 - Essential (primary) hypertension Plan: Continue with blood pressure medication. Decrease salt intake and exercise presently on metoprolol 25 mg once a day lisinopril 10 mg once a day. With blood pressure continues to be elevated increase in metoprolol done. Heart rate is 76 (4) Hypercholesterolemia: Code(s): E78.00 - Pure hypercholesterolemia, unspecified Plan: Avoid fried foods, chicken skin, eggs, butter margarine, pastries and meat. Be it pork or beef they have a lot of cholesterol LDL goal of less than 100 and triglyceride of less than 150. (5) Anemia: Code(s): D64.9 - Anemia, unspecified Qualifiers: Anemia type: unspecified type Qualified Code(s): D64.9 - Anemia, unspecified Plan: Continue to monitor (6) Graves' ophthalmopathy: Comment: February 2022MRI of the head: Diffuse edema and enlargement of the left superior rectus levator palpebral superior complex with surrounding fatty stranding and mild left proptosis mild a symmetric prominence of the left lacrimal gland likely reactive. The pattern is unusual for thyroid associated orbitopathy given the lack of involvement of other extraocular muscles and suspected involvement of the musculotendinous insertion. Inflammatory myositis is a favored etiology. 2. Mild enlargement of the suite left superior ophthalmic vein with surrounding fat stranding may be secondary to venous engorgement or phlebitis due to adjacent myositis. Attention on follow-up imaging is advised. A CT venogram of the head can be considered if clinically indicated. No evidence of cavernous sinus thrombosis. Four. Diminished caliber of the intraorbital an intra canalicular segment of the left optic nerve without corresponding enhancement. In the absence of STIR abnormality this could be a normal variant however clinical correlation for signs of optic neuropathy is advised. Five. Sequelae of prior lacunar infarct in the left thalamus and in the right posterior lentiform nucleus. Nonspecific white matter lesions in the bilateral supratentorial brain parenchyma, inclusive periventricular lesions in the left temporal lobe and right periventricular sent room [place], may be sequelae of prior infection/inflammation, vasculitis or chronic microvascular disease, however the myelination is not completely excluded and neurological consult and clinical correlation advised. Six. A small T2 hyperintense enhancing lesion in the superficial lobe of the left parotid gland is partially imaged and partially evaluated and may represent a benign parotid lymph node. An ultrasound of the parotid gland with fine-needle aspiration can be considered as clinically indicated. Code(s): E05.00 - Thyrotoxicosis with diffuse goiter without thyrotoxic crisis or storm Plan: Discussed getting endocrinology involved. (7) Renal insufficiency: Code(s): N28.9 - Disorder of kidney and ureter, unspecified Plan: Concern about the kidney numbers going up avoid NSAIDs and discussed about getting Nephrology involved. (8) Upper back pain: Code(s): M54.9 - Dorsalgia, unspecified Plan: Discussed that this looks more muscular. A chest x-ray is requested. (9) Constipation: Code(s): K59.00 - Constipation, unspecified Plan: Three rules for constipation 1. Diet need to have a high fiber diet less of meat 2. Increase oral fluids 3. Exercise laxative was also prescribed. Orders: Orders Complete Blood Count Auto Diff Today E11.65 - Type 2 diabetes mellitus with hyperglycemia Comprehensive Met. Panel Today E11.65 - Type 2 diabetes mellitus with hyperglycemia Vitamin B12 and Folate Today E11.65 - Type 2 diabetes mellitus with hyperglycemia Prostate Specific Antigen Scr Today E11.65 - Type 2 diabetes mellitus with hyperglycemia AMB Hemoglobin A1c Today E11.65 - Type 2 diabetes mellitus with hyperglycemia Lipid Panel Today E11.65 - Type 2 diabetes mellitus with hyperglycemia, E78.00 - Pure hypercholesterolemia, unspecified Thyroid Stimulating Hormone Today E11.65 - Type 2 diabetes mellitus with hyperglycemia Free T4 (Free Thyroxine) Today E11.65 - Type 2 diabetes mellitus with hyperglycemia Microalbumin, Random (w Creat) Today E11.65 - Type 2 diabetes mellitus with hyperglycemia Creatinine Urine Today E11.65 - Type 2 diabetes mellitus with hyperglycemia XR chest 2V Today M54.9 - Dorsalgia, unspecified Referrals Nephrology Referral N28.9 - Disorder of kidney and ureter, unspecified Endocrinology Referral E05.00 - Thyrotoxicosis with diffuse goiter without thyrotoxic crisis or storm Medications: New sennosides-docusate sodium 8.6-50 mg (Senna Plus) 2 tab-caps (2 x 8.6-50 mg) PO BEDTIME 60 tabs 2RF K59.00 - Constipation, unspecified Changed From metoprolol succinate ER 25 mg PO DAILY 90 days 90 tabs 0RF I10 - Essential (primary) hypertension To metoprolol succinate ER 50 mg PO DAILY 90 days 90 tabs 0RF I10 - Essential (primary) hypertension Coding Level of Care Code Est Pt Level 4 (28960) Diagnoses Type 2 diabetes mellitus with hyperglycemia, without long-term current use of insulin E11.65 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
[2023-11-06 10:24] VITALS: BP 170/80
== END 2023-11-06 10:34 | disposition home or self-care (01) ==
PROVIDERS: PCP Internal Medicine; Visit Provider Internal Medicine
DX: E11.65 Type 2 diabetes mellitus with hyperglycemia (principal); Z72.0 Tobacco use; I10 Essential (primary) hypertension; E78.00 Pure hypercholesterolemia, unspecified; D64.9 Anemia, unspecified; E05.00 Thyrotoxicosis with diffuse goiter without thyrotoxic crisis or storm; N28.9 Disorder of kidney and ureter, unspecified; M54.9 Dorsalgia, unspecified; K59.00 Constipation, unspecified

== ENCOUNTER 2023-11-06 09:43 | Outpatient (REF) | payer OTHER, SELFPAY ==
--- NOTE | ~2023-11-06 | XR_ITS ---
EXAMINATION: XR CHEST CLINICAL INFORMATION: M54.9 - Dorsalgia, unspecified COMPARISON: None available. TECHNIQUE: 2 views of the chest were obtained. FINDINGS: Submitted for interpretation on January 13, 2024. No consolidation, pleural effusion or pneumothorax. Cardiomediastinal silhouette is normal in size. Osseous structures are intact. XR/XR chest 2V IMPRESSION: No acute airspace disease. Electronically signed by: Darryn King MD 01/13/2024 03:19 PM EST
[2023-11-06 11:04] LABS: MANUAL DIFF FLAG NO
[2023-11-06 11:35] LABS: Basophils Percent Auto 0.4 % (0-2); Eosinophils Absolute Auto 0.1 X10*3/uL (0.0-0.4); Eosinophils Percent Auto 1.1 % (0-4); Hemoglobin 12.2 g/dl (14.0-18.0); Imm Gran Abs Auto 0.08 X10*3/uL (0.00-0.03); Imm Gran Pct Auto 0.8 % (0.0-0.4); Lymphocytes Absolute Auto 1.6 X10*3/uL (1.2-4.9); Lymphocytes Percent Auto 16.5 % (20-40); Mean Corpuscular HGB Conc 33.9 g/dl (31.0-36.0); Mean Corpuscular Hemoglobin 33.8 pg (27.0-33.0); Mean Corpuscular Volume 99.7 fL (80.0-98.0); Mean Platelet Volume 9.2 fL (9.4-12.4); Monocytes Absolute Auto 0.9 X10*3/uL (0.1-1.2); Monocytes Percent Auto 9.3 % (2-11); Neutrophils Absolute Auto 7.2 x10*3/uL (2.0-8.3); Neutrophils Percent Auto 71.9 % (45-73); Platelet Count 246 X10*3/uL (160-400); Red Blood Count 3.61 X10*6/uL (4.60-5.80); Red Cell Distribution Width 12.8 % (11.0-16.0)
[2023-11-06 12:31] LABS: Anion Gap 16 (12-20); Blood Urea Nitrogen 11 mg/dL (9-16); Carbon Dioxide 28 mmol/L (22-29); Chloride 102 mmol/L (96-108); Estimated Glomerular Filt Rate 53; Glucose Random 108 mg/dL (60-115); Potassium 5.2 mmol/L (3.3-5.1); Sodium 141 mmol/L (135-145)
[2023-11-06 12:32] LABS: Alanine Aminotransferase 23 U/L (0-40); Albumin Level 4.6 g/dL (3.5-5.0); Alkaline Phosphatase 97 U/L (39-117); Aspartate Amino Transferase 30 U/L (5-37); Bilirubin Total 0.7 mg/dL (0.0-1.0); Calcium 9.6 mg/dL (8.4-10.2); Cholesterol 221 mg/dL (<200); HDL Cholesterol 86 mg/dL (>40); LDL Cholesterol Calculated 108 mg/dL (<100); Total Protein 8.1 g/dL (6.5-8.0); Triglycerides 139 mg/dL (<150)
[2023-11-06 12:36] LABS: Thyroid Stimulating Hormone 2.49 uIU/mL (0.32-4.0)
[2023-11-06 12:42] LABS: Folate 5.9 ng/mL (> or = 4.0); Prostate Specific Antigen Scr 0.35 ng/mL (<0.05-4.0); Vitamin B12 240 pg/mL (200-900)
[2023-11-06 15:01] LABS: Creatinine Urine 155.66 mg/dL; Microalbum/Creatinine Ratio Ur 100.2 ug/mg cr (<30)
== END 2023-11-06 09:44 | disposition home or self-care (01) ==
LOC: HO.LAB 09:43
PROVIDERS: PCP Internal Medicine; Visit Provider Internal Medicine
DX: E11.65 Type 2 diabetes mellitus with hyperglycemia (principal); I10 Essential (primary) hypertension; E78.00 Pure hypercholesterolemia, unspecified; D64.9 Anemia, unspecified; E05.00 Thyrotoxicosis with diffuse goiter without thyrotoxic crisis or storm; N28.9 Disorder of kidney and ureter, unspecified; M54.9 Dorsalgia, unspecified; K59.00 Constipation, unspecified; Z72.0 Tobacco use; Z79.84 Long term (current) use of oral hypoglycemic drugs; Z79.899 Other long term (current) drug therapy
CPT/HCPCS: 36415; 71046; 80053; 80061; 82043; 82570; 82607; 82746; 83036; 84153; 84439; 84443; 85025; 99212

== ENCOUNTER → 2023-11-06 11:08 | Outpatient (BNV) | payer OTHER, SELFPAY | PROVIDERS: PCP Internal Medicine; Visit Provider Radiology Diagnostic Radiology | DX: M54.9 Dorsalgia, unspecified (principal) | CPT/HCPCS: 71046 ==

== ENCOUNTER 2023-11-12 12:49 | Outpatient (AMB) | payer OTHER, SELFPAY ==
[2023-11-12 12:54] VITALS: BP 152/92; PULSE 67; BMI 20.9
--- NOTE | 2023-11-12 12:54 | MHC.OFFVIS ---
Vital Signs 11/12/23 12:54 Height 5 ft 8 in Weight 137 lb 12.623 oz BMI 20.9 BP 152/92 H Blood Pressure Location Lt brachial Position Sitting Pulse 67 Pulse Source Pulse Oximeter Intake Visit Reasons: thyrotoxicosis Intake Note: Patient present today for thyrotoxicosis office visit. Bread Wrapper Required: No Accompanied by: Self / Same As Patient Allergies No Known Allergies Allergy (Verified 11/12/23 12:58) Medication List - Last Reconciled 11/12/23 by Lisset Bennett MD blood pressure monitor As directed blood sugar diagnostic (FreeStyle Lite Strips) As directed check the BS QD blood-glucose meter (FreeStyle Lite Meter kit) As directed check the BS QD cholecalciferol (vitamin D3) 25 mcg PO DAILY lancets (FreeStyle Lancets) As directed check the BS QD lisinopril 10 mg PO DAILY metformin orally WITH MEAL; 1000 mg in am and 500 in pm 30 days metoprolol succinate ER 50 mg PO DAILY 90 days sennosides-docusate sodium 8.6-50 mg (Senna Plus) 2 tab-caps (2 x 8.6-50 mg) PO BEDTIME sildenafil (Viagra) 50 mg PO DAILY PRN HPI Comments Details: 52-year-old male coming in today for follow up of hypothyroidism with prior history of Graves disease reverting to hypothyroidism, as well as 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 Was previously seeing Dr. Joyner 11/02 Hypothyroidism Thyroid nodules Patient with prior history of Graves disease diagnosed in July 2020 when he was noted to have blood work consistent with hyperthyroidism with thyroid uptake and scan from September 2020 showing diffuse increased uptake. Thyrotropin receptor antibody levels were also noted to be elevated. Patient was started on methimazole 10 mg daily, however he subsequently developed hypothyroidism. He was started on levothyroxine. sometime in 2022 levothyroxine also stopped . Thyroid ultrasound from August 2020 also showed subcentimeter bilateral thyroid nodules. I reviewed the images myself and notably he has 2 solid, isoechoic subcentimeter nodules which were reported as being located inferior and lateral to the left thyroid lobe, however it is hard to tell and possibly these were just part of the thyroid lobe. No microcalcifications noted. The 0.6 cm solid, isoechoic nodule is taller than wide, which needs follow up ultrasound. On the thyroid uptake and scan in September 2020, he was also noted to have decreased uptake in the left lower which is consistent with these nodules. Most recent labs from October 2023 showed normal TSH of 2.49, normal free T4 of 1.20. Reports intermittent heat intolerance, lost 10 lbs in 3 months due to decreased appetite. No mood changes. No tiredness. No tremors, no palpitations. Patient currently denies diarrhea or constipation, anxiety, mood changes, low energy, changes in appearance of eyes or vision changes, tremors, increased diaphoresis or dry skin. ? Patient denies any difficulty swallowing, pain on swallowing or voice changes or difficulty breathing. Patient denies any history of childhood neck radiation. Denies having ever used lithium, amiodarone or biotin supplements. Patient denies any family history of thyroid cancer or thyroid disease. Mother : breast cancer During his visits in 2020, he was also noted to have diplopia in his left eye, with subsequent MRI and clinical findings not suggestive of typical features of thyroid eye disease, with MRI features consistent with orbital myositis. He was seen at [facility] in January 2022 when they agreed with the findings and referred him to Neurology. Subsequently he was treated with prednisone for the orbital myositis by Neurology. Current eye symptoms: Denies blurriness ,no diplopia , no pain on eye movements Last eye doctor visit: 6 months ago in [place]. PTH mediated hypercalcemia On chart review patient is also noted to have elevated calcium levels multiple times, at least since May 2020, with total calcium levels ranging anywhere from 9.6-10.7, with albumin around 4.5, 4.6. Corrected calcium would be slightly lower. Most recent sent labs from 11/06/2023 showed calcium level of 9.6, with albumin of 4.5. Labs from February 2023 showed total calcium of 10.5, with albumin of 4.6 corrected calcium would be 9.9, ionized calcium was also noted to be elevated at 5.6. No recent vitamin-D levels in the chart. History of fractures: None No bone density scan done. No abdominal ultrasound in the chart. 26 years ago had history of kidney stone, passed it no recent episodes. Reports intermittent abd pain, no polyuria, no constipation No family history of calcium related problems Father : has kidney stones No history of diarrhea, acid reflux, abdominal pain to suggest peptic ulcer disease No family history of pituitary tumors. Vitamin D not taken in the last 2 months. Milk once a week, yogurt 2-3 times a week, cheese once in a while Blood pressure noted to be elevated, being monitored by PCP patient says he recently increased his metoprolol from 25 to 50. Review of systems Constitutional: no fevers, chills HEENT: no changes in vision Cardiac: No chest pain, discomfort or palpitations. Pulmonary: No SOB GI:No abdominal pain, no nausea or vomiting, no anorexia, no blood in stool : no burning micturition, dysuria or increase in urinary frequency Physical exam General: sitting comfortably in no acute distress HEENT: normocephalic/atraumatic, EOM intact, moist oral mucosa Neck: supple, symmetrical, no thyromegaly , no dorsocervical or supraclavicular fat pads Cardiac: normal heart sounds Pulm: normal breath sounds B/L, no added breath sounds Abd: not distended, no tenderness Extremities: no edema, no signs of myxedema Neuro: AAO x3, Speech: normal, no facial droop, moving all 4 extremities [facility] Medical History (Updated 11/12/23 @ 13:34 by Lisset Bennett MD) Colon cancer screening Annual physical exam Shoulder abscess Multinodular goiter Graves disease Elbow pain, left Hyperthyroidism Hypertension Surgical History History of knee surgery Family History Mother Myocardial infarct Breast cancer Father Myocardial infarct Social History Housing: House Alcohol intake: current Alcohol intake frequency: does not drink Patient Tobacco Use Status: Current someday Tobacco user Tobacco use type: Cigarette Cigarettes Per Day: 2 Years Smoked: WORKING ON [employer] 1 a day (11/2022) e-Cigarette/Vaping Use: Never Used Second Hand Smoke Exposure: No service: No Current occupational status: employed Current occupational exposures/hazards: No Cognitive needs: No Hearing needs: No Vision needs: No Physical Exam Vital Signs: Last Vital Signs Pulse 67 11/12/23 12:54 BP 152/92 H 11/12/23 12:54 BMI result Body Mass Index 20.9 Results Reviewed Results Reviewed: Laboratory Tests 05/26/20 07/29/20 11/28/20 15:25 15:15 10:53 Creatinine Estimated GFR Calcium 10.3 H Ionized Calcium Albumin 4.6 4.7 TSH < 0.01 L < 0.01 L 69.29 H Free T4 2.27 H 1.63 0.67 L PTH Intact Thyroglobulin Antibody 1 Thyroid Peroxidase Ab 2 TSH Receptor Ab 11.38 H 02/20/21 11/10/21 12/07/22 09:48 10:12 10:38 Creatinine 1.34 Estimated GFR 57 Calcium 9.8 10.7 H D Ionized Calcium Albumin 4.5 4.4 TSH 4.48 H 1.14 4.36 H Free T4 0.97 1.06 1.01 PTH Intact Thyroglobulin Antibody Thyroid Peroxidase Ab TSH Receptor Ab 03/12/23 06/17/23 11/06/23 11:00 11:20 11:02 Creatinine 1.45 H 1.42 H Estimated GFR 52 53 Calcium 10.5 H 9.6 D Ionized Calcium 5.6 H Albumin 4.6 4.6 TSH 3.99 4.26 H 2.49 Free T4 0.97 1.06 1.20 PTH Intact 77.8 H Thyroglobulin Antibody Thyroid Peroxidase Ab TSH Receptor Ab THYROID UPTAKE AND SCAN 09/14/20 CLINICAL INFORMATION: Thyrotoxicosis. COMPARISON: No previous radionuclide thyroid scan is available for comparison. Thyroid ultrasound dated 08/22/2020 is available for comparison. TECHNIQUE: Following the oral administration of 281 microcuries of I-123 sodium iodide, thyroid uptake was performed and expressed as a percentage of the administrated dose. Gamma scintillation camera images of the thyroid in the anterior and right and left anterior oblique views were obtained using a pinhole collimator following the administration of 10 mCi Tc-99m pertechnetate. FINDINGS: The uptake is 7.8% at 4 hours and 27.6% at 24 hours (Normal radioiodine uptake at 24 hours is 10% to 30%). The radioiodine uptake is normal. The radiopertechnetate thyroid scintigram demonstrates the thyroid gland to be normal in size, shape, and position. There is homogeneous distribution of activity within the the gland with no focal abnormalities noted. The trapping function appears normal. There is a focus of decreased activity of moderate severity present in the lower pole of the left lobe. Otherwise there is homogeneous distribution of activity in the remainder the left lobe and throughout the right lobe, but the trapping function is markedly increased diffusely. A single anterior radioiodine image obtained at the time of the 24-hour uptake measurement is similar to the radio pertechnetate image but does not delineate the detail within the gland as well. The thyroid ultrasound dated 08/22/2020 demonstrated significant nodularity in or immediately adjacent to the lower pole the left lobe that probably corresponds to the focus of decreased activity on the current study at this site. 2 additional subcentimeter nodules in the left lower pole and right mid pole are too small to be visualized on this radionuclide images and are not delineated. NM/NM thyroid w uptake IMPRESSION: 1. A solitary hypofunctioning (cold) nodule is likely present in the lower pole of the left lobe. Further characterization of this with ultrasound-guided fine-needle aspirate is recommended. 2. Homogeneous distribution of activity there is diffusely increased trapping function within the remainder of the thyroid gland despite its normal size and normal radioiodine uptake is consistent with Graves' disease in the clinical setting of hyperthyroidism US THYROID 08/22/20 CLINICAL INFORMATION: Thyrotoxicosis, unspecified without thyrotoxic crisis or storm. COMPARISON: None TECHNIQUE: Linear transducer grayscale and color Doppler examination with attention to the region of the thyroid. FINDINGS: SIZE: Measurements of the thyroid lobes and nodules are given in sagittal, anteroposterior and transverse dimensions respectively. Right Thyroid Lobe: 4.6 x 1.5 x 1.5 cm, volume 5.4 mL. Parenchyma: The gland echotexture is homogeneous. Thyroid vascularity is normal. Left Thyroid Lobe: 4.8 x 1.4 x 1.4 cm, volume 4.9 mL. Parenchyma: The gland echotexture is homogeneous. Thyroid vascularity is normal. Isthmus: 0.2 cm in maximum AP dimension. Estimated total number of nodules greater than or equal to 1 cm: 0. [place] [employer] Dredge Or Barge nodules are described as follows: 1. Location: Left lower pole. Size: 0.3 x 0.1 x 0.2 cm, volume 0.01 mL. Nodule characteristics: Composition: Cystic(0). ACR TI-RADS total points: 0 ACR TI-RADS category: 1 2. Location: Right mid pole. Size: 0.3 x 0.2 x 0.2 cm, volume 0.01 mL. Nodule characteristics: Composition: Cystic(0). ACR TI-RADS total points: 0 ACR TI-RADS category: 1 NODES: There are 2 hyperechoic solid nodules slightly posterior and lateral to the inferior left lobe. These measure 6 x 4 x 4 mm and 8 x 5 x 10 mm. Both lesions may have a thin peripheral hypoechoic component. It is uncertain whether these represent lymph nodes with prominent fatty jc and cortical thinning. US/US thyroid IMPRESSION: Normal-sized thyroid gland with small bilateral thyroid nodules. 2 hyperechoic lesions posterior and lateral to the inferior left lobe. It is uncertain whether these represent lymph nodes with prominent fatty jc and cortical thinning or other soft tissue lesion. 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 Now biochemically euthyroid off levothyroxine. Currently does not have any symptoms of hypo or hyperthyroidism though he has lost some weight due to reduced appetite. Plan: -repeat TFTs annually, next would be due in 2024 (2) Multinodular goiter: Code(s): E04.2 - Nontoxic multinodular goiter Category: Medical Plan: He had a thyroid ultrasound in 2020 which also showed lsubcentimeter bilateral thyroid nodules. I reviewed the images myself and notably he has 2 solid, isoechoic subcentimeter nodules which were reported as being located inferior and lateral to the left thyroid lobe, however it is hard to tell and possibly these were just part of the thyroid lobe. No microcalcifications noted. The 0.6 cm solid, isoechoic nodule is taller than wide, which needs follow up ultrasound. On the thyroid uptake and scan in September 2020, he was also noted to have decreased uptake in the left lower which is consistent with these nodules. Plan: -ordered thyroid ultrasound -follow up in 12 weeks (3) Hypercalcemia: Code(s): E83.52 - Hypercalcemia Category: Medical Plan: On chart review patient is also noted to have elevated calcium levels multiple times, at least since May 2020, with total calcium levels ranging anywhere from 9.6-10.7, with albumin around 4.5, 4.6. Corrected calcium would be slightly lower. Most recent sent labs from 11/06/2023 showed calcium level of 9.6, with albumin of 4.5. Labs from February 2023 showed total calcium of 10.5, with albumin of 4.6 corrected calcium would be 9.9, ionized calcium was also noted to be elevated at 5.6. No recent vitamin-D levels in the chart. He has not been taking any vitamin-D supplements. Barely has any nutritional intake of calcium. No history of fractures. He does have chronic kidney disease though he also has a uncontrolled hypertension likely from that. He has a prior history of kidney stones many years ago, also has family history of kidney stones in father. No recent kidney stones or hematuria. Given PTH mediated hypercalcemia likely has primary hyperparathyroidism which is the most common cause. However could also possibly have secondary hyperparathyroidism in the setting of kidney disease though elevated calcium levels would not be seen in that. PTH levels could also be high because of poor calcium intake. At this time I have asked him to increase his calcium intake with a at least 2 servings of calcium rich foods daily for the next 6 weeks and also do restart taking vitamin-D 1000 units daily. In 6 weeks we will repeat labs along with a 24 hour urine collection for calcium. Plan: -start taking 2 servings of calcium rich foods daily -start taking vitamin D 1000 units daily -after doing 6 weeks of this, go for blood work and 24 hour urine collection for calcium and creatinine -follow up in 12 weeks Plan I spent 30 minutes in reviewing the record, seeing the patient and documenting in the medical record. Orders: Orders Thyroid Stimulating Hormone 1 Year E03.9 - Hypothyroidism, unspecified, E04.2 - Nontoxic multinodular goiter Free T4 (Free Thyroxine) 1 Year E03.9 - Hypothyroidism, unspecified, E04.2 - Nontoxic multinodular goiter Albumin Level 6 Weeks E83.52 - Hypercalcemia Calcium 6 Weeks E83.52 - Hypercalcemia Creatinine, 24 Hr Group 6 Weeks E83.52 - Hypercalcemia Vitamin D 25-OH Total 6 Weeks E83.52 - Hypercalcemia Phosphorus 6 Weeks E83.52 - Hypercalcemia US thyroid Today E03.9 - Hypothyroidism, unspecified, E04.2 - Nontoxic multinodular goiter Calcium, 24 Hr Ur 6 Weeks E8. - Hypercalcemia Calcium, Ionized 6 Weeks E8. - Hypercalcemia Parathyroid Hormone Intact 6 Weeks E8.52 - Hypercalcemia Magnesium 6 Weeks E8. - Hypercalcemia Medications: New cholecalciferol (vitamin D3) 25 mcg PO DAILY 30 caps 6RF Patient Instructions: Take vitamin D 1000 units daily Take 2 servings of calcium rich foods daily like milk, cheese, yogurt Do urine test in 6 weeks a 24 hr collection 24 hr urine collection instructions You have been asked to collect your urine for 24 hours to assess for calcium excretion. You must choose a 24 hour period of time when you will be home. The morning of the first day, DISCARD the FIRST morning void and then note the time. You will collect every single void from then on for 24 hours. For example, if you wake up at 6am and urinate, flush down that void. You will then collect every drop of urine all day and all night through 6am the following day. You will urinate one last time at 6am for the collection. The jug of urine must be kept in the refrigerator until you bring it to the lab.You have been asked to collect your urine for 24 hours to assess for calcium excretion. You must choose a 24 hour period of time when you will be home. The morning of the first day, DISCARD the FIRST morning void and then note the time. You will collect every single void from then on for 24 hours. For example, if you wake up at 6am and urinate, flush down that void. You will then collect every drop of urine all day and all night through 6am the following day. You will urinate one last time at 6am for the collection. The jug of urine must be kept in the refrigerator until you bring it to the lab. 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
== END 2023-11-12 13:32 | disposition home or self-care (01) ==
PROVIDERS: PCP Internal Medicine; Visit Provider Student in an Organized Health Care Education/Training Program
DX: E06.3 Autoimmune thyroiditis (principal); E04.2 Nontoxic multinodular goiter; E83.52 Hypercalcemia
CPT/HCPCS: 99214

== ENCOUNTER → 2023-11-12 12:49 | Outpatient (BNVA) | payer OTHER, SELFPAY | PROVIDERS: PCP Internal Medicine; Visit Provider Student in an Organized Health Care Education/Training Program | DX: E06.3 Autoimmune thyroiditis (principal); E04.2 Nontoxic multinodular goiter; E83.52 Hypercalcemia | CPT/HCPCS: 99212 ==

== ENCOUNTER 2023-11-25 09:32 | Outpatient (REF) | payer OTHER, SELFPAY | END 2023-11-25 09:33 | disposition home or self-care (01) | LOC: HO.US 09:32 | PROVIDERS: PCP Internal Medicine; Visit Provider Student in an Organized Health Care Education/Training Program | DX: E04.2 Nontoxic multinodular goiter (principal); E03.9 Hypothyroidism, unspecified | CPT/HCPCS: 76536 ==

== ENCOUNTER 2023-12-10 11:28 | Outpatient (AMB) | payer OTHER, SELFPAY ==
--- NOTE | 2023-12-10 12:03 | HO.NEPHOV_ITS ---
Vital Signs 12/10/23 12:04 Height 5 ft 8 in Weight 138 lb 6 oz BMI 21.0 BP 156/82 H Blood Pressure Location Lt brachial Position Sitting Pulse 79 Pulse Source Pulse Oximeter Pulse Oximetry (%) 99 Oxygen Delivery Method Room Air Intake Visit Reasons: Disorder of kidney and urete-Conf Temperature Control Inspector Required: No Accompanied by: Self / Same As Patient Allergies No Known Allergies Allergy (Verified 12/10/23 12:06) HPI Comments Details: Bradley was seen in consultation for CKD and hypertension. He has immigrated to [facility] from [place] long time ago. He is a known diabetic & has been on metformin. He does not check his blood sugars regularly .He is on multiple antihypertensive medications. He denies any coronary artery disease, carotid stenosis congestive heart failure, CVA, peripheral arterial disease or any history of renal artery stenosis. He denies any family history of ESRD or renal transplantation. He does not have any sensorineural deafness or microscopic hematuria. He denies taking excessive nonsteroidal anti-inflammatories. He does not have any new bone or back pain. He denies epistaxis, recurrent sore throat, skin infections, uveitis, skin rashes, photosensitivity, epistaxis, joint swellings, dysuria or renal calculi. He does not have any hypoglycemias. His recent serum creatinine was 1.42 [facility] Medical History (Updated 12/19/23 @ 10:33 by Donte Bowens MD) Colon cancer screening Annual physical exam Shoulder abscess Multinodular goiter Graves disease Elbow pain, left Hyperthyroidism Hypertension Surgical History History of knee surgery Family History Mother Myocardial infarct Breast cancer Father Myocardial infarct Social History Housing: House Alcohol intake: current Alcohol intake frequency: does not drink Patient Tobacco Use Status: Current someday Tobacco user Tobacco use type: Cigarette Cigarettes Per Day: 2 Years Smoked: WORKING ON [employer] 1 a day (11/2022) e-Cigarette/Vaping Use: Never Used Second Hand Smoke Exposure: No service: No Current occupational status: employed Current occupational exposures/hazards: No Cognitive needs: No Hearing needs: No Vision needs: No Review of Systems Const All systems reviewed & are unremarkable except as noted in HPI and below Physical Exam Vital Signs: Last Vital Signs Pulse 79 12/10/23 12:04 BP 156/82 H 12/10/23 12:04 Pulse Ox 99 12/10/23 12:04 Oxygen Delivery Method Room Air 12/10/23 12:04 BMI result Body Mass Index 21.0 Const General: comfortable and no acute distress Orientation/consciousness: patient oriented x3 HEENT Head: Yes normocephalic Mouth: Normal oral and palatal mucosa present Eyes EOM: EOMs intact bilaterally Neck Neck: Yes supple Resp Auscultation: clear to auscultation bilaterally Cardio Jugular venous distension: no JVD Rate: regular rate GI Palpation (GI): Soft to palpation Auscultation: normal bowel sounds General: Yes no CVA tenderness Back/Spine/Pelvis Back: no CVA tenderness Skin General skin exam: no rashes or lesions noted Neuro General: patient oriented x3 and moves all extremities Extrem General: Yes no pedal edema Results Reviewed Nephrology Results: Hgb 12.2 g/dl (14.0-18.0) L 11/06/23 WBC 10.0 X10*3/uL (4.8-10.8) 11/06/23 Plt Count 246 X10*3/uL (160-400) 11/06/23 Sodium 141 mmol/L (135-145) 11/06/23 Potassium 5.2 mmol/L (3.3-5.1) H 11/06/23 Chloride 102 mmol/L (96-108) 11/06/23 Carbon Dioxide 28 mmol/L (22-29) 11/06/23 BUN 11 mg/dL (9-16) 11/06/23 Creatinine 1.42 mg/dL (0.5-1.4) H 11/06/23 Calcium 9.6 mg/dL (8.4-10.2) 11/06/23 PTH Intact 77.8 pg/mL (8.7-77.1) H 06/17/23 Urine Creatinine 155.66 mg/dL 11/06/23 Assessment & Plan Assessment & Plan (1) CKD stage 3a, GFR 45-59 ml/min: Code(s): N18.31 - Chronic kidney disease, stage 3a Category: Medical (2) Hypertension: Code(s): I10 - Essential (primary) hypertension Category: Medical Qualifiers: Hypertension type: primary hypertension Qualified Code(s): I10 - Essential (primary) hypertension Plan 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 He is not known to have significant proteinuria. Differential diagnosis is quite broad at this point in time. All the possibilities have been discussed with him. Detailed investigations and imaging have been ordered. He may need renal biopsy. I shall strongly consider switching his metformin to Jardiance based on evolving data. All questions answered. Follow-up appointment given. Orders: Orders Complete Blood Count Auto Diff 2 Weeks N18.31 - Chronic kidney disease, stage 3a Electrolytes 2 Weeks N18.31 - Chronic kidney disease, stage 3a Calcium 10 Days N18.31 - Chronic kidney disease, stage 3a Hepatitis B Core Antibody 2 Weeks N18.31 - Chronic kidney disease, stage 3a Hepatitis B Surface Antigen 2 Weeks N18.31 - Chronic kidney disease, stage 3a Hepatitis C Antibody Reflex 2 Weeks N18.31 - Chronic kidney disease, stage 3a Neutrophil Cytoplasma Ab 2 Weeks N18.31 - Chronic kidney disease, stage 3a Anti Glomerular Basement Memb 2 Weeks N18.31 - Chronic kidney disease, stage 3a Prothrombin Time INR 2 Weeks N18.31 - Chronic kidney disease, stage 3a Creatinine 2 Weeks N18.31 - Chronic kidney disease, stage 3a Blood Urea Nitrogen 2 Weeks N18.31 - Chronic kidney disease, stage 3a Phosphorus 10 Days N18.31 - Chronic kidney disease, stage 3a Anti DNA DS Antibody 2 Weeks N18.31 - Chronic kidney disease, stage 3a Myeloperoxidase Antibody 2 Weeks N18.31 - Chronic kidney disease, stage 3a Complement C3 2 Weeks N18.31 - Chronic kidney disease, stage 3a Complement C4 2 Weeks N18.31 - Chronic kidney disease, stage 3a Immunofixation Pnl, Serum 2 Weeks N18.31 - Chronic kidney disease, stage 3a Phospholipase A2 Receptor Pnl 2 Weeks N18.31 - Chronic kidney disease, stage 3a Scleroderma 70 Antibody 2 Weeks N18.31 - Chronic kidney disease, stage 3a Uric Acid 2 Weeks N18.31 - Chronic kidney disease, stage 3a US renal BI 2 Weeks N18.31 - Chronic kidney disease, stage 3a US renal doppler 2 Weeks N18.31 - Chronic kidney disease, stage 3a Coding Level of Care Code New Pt Level 4 (36006) Diagnoses CKD stage 3a, GFR 45-59 ml/min N18.31 Primary hypertension I10 Hypertension type: primary hypertension
[2023-12-10 12:04] VITALS: BP 156/82; PULSE 79; O2SAT 99; BMI 21.0
== END 2023-12-10 12:33 | disposition home or self-care (01) ==
LOC: HO.HKAS 11:28
PROVIDERS: PCP Internal Medicine; Referring Provider Internal Medicine; Visit Provider Internal Medicine Nephrology
DX: N18.31 Chronic kidney disease, stage 3a (principal); I10 Essential (primary) hypertension
CPT/HCPCS: 99204

== ENCOUNTER → 2023-12-10 11:28 | Outpatient (BNVA) | payer OTHER, SELFPAY | PROVIDERS: PCP Internal Medicine; Referring Provider Internal Medicine; Visit Provider Internal Medicine Nephrology | DX: E11.22 Type 2 diabetes mellitus with diabetic chronic kidney disease (principal); I12.9 Hypertensive chronic kidney disease with stage 1 through stage 4 chronic kidney disease, or unspecified chronic kidney disease; N18.31 Chronic kidney disease, stage 3a; Z79.84 Long term (current) use of oral hypoglycemic drugs | CPT/HCPCS: 99202 ==

== ENCOUNTER 2023-12-24 07:36 | Outpatient (REF) | payer OTHER, SELFPAY ==
--- NOTE | ~2023-12-24 | US_ITS ---
EXAMINATION: US RENAL ARTERY DOPPLER CLINICAL INFORMATION: Chronic kidney disease, stage 3a COMPARISON: None TECHNIQUE: Renal ultrasound. Doppler ultrasound (spectral analysis and color Doppler) of the renal arteries and aorta were performed. FINDINGS: The right kidney measures 10.6 x 4.8 x 5.8 cm in sagittal, AP and transverse dimensions. The left kidney measures 9.8 x 4.5 x 4.1 cm in sagittal, AP and transverse dimensions. The kidneys show no masses, calculi or hydronephrosis. The corticomedullary differentiation is normal. RENAL ARTERY VELOCITIES: Right: Proximal: 83 cm/s. Mid: 73.1 cm/s. Distal: 80.5 cm/s. Left: Proximal: 44.5 cm/s. Mid: 73.6 cm/s. Distal: 30 cm/s. Second distal: 23.7 cm/s. INTERLOBAR RESISTIVE INDICES: Right: Upper: 0.71 Mid: 0.76 Lower: 0.7 Left: Upper: 0.68 Mid: 0.69 Lower: 0.60 Mid aortic velocity: 112 cm/s. Renal Aortic Ratio: Right: 0.74 Left: 0.66 US/US renal BI IMPRESSION: 1. Normal renal ultrasound. 2. No Doppler evidence of renal artery stenosis. Electronically signed by: Marion Savage DO 12/24/2023 11:48 AM JUDITH
--- NOTE | ~2023-12-24 | US_ITS ---
EXAMINATION: US RENAL ARTERY DOPPLER CLINICAL INFORMATION: Chronic kidney disease, stage 3a COMPARISON: None TECHNIQUE: Renal ultrasound. Doppler ultrasound (spectral analysis and color Doppler) of the renal arteries and aorta were performed. FINDINGS: The right kidney measures 10.6 x 4.8 x 5.8 cm in sagittal, AP and transverse dimensions. The left kidney measures 9.8 x 4.5 x 4.1 cm in sagittal, AP and transverse dimensions. The kidneys show no masses, calculi or hydronephrosis. The corticomedullary differentiation is normal. RENAL ARTERY VELOCITIES: Right: Proximal: 83 cm/s. Mid: 73.1 cm/s. Distal: 80.5 cm/s. Left: Proximal: 44.5 cm/s. Mid: 73.6 cm/s. Distal: 30 cm/s. Second distal: 23.7 cm/s. INTERLOBAR RESISTIVE INDICES: Right: Upper: 0.71 Mid: 0.76 Lower: 0.7 Left: Upper: 0.68 Mid: 0.69 Lower: 0.60 Mid aortic velocity: 112 cm/s. Renal Aortic Ratio: Right: 0.74 Left: 0.66 US/US renal doppler IMPRESSION: 1. Normal renal ultrasound. 2. No Doppler evidence of renal artery stenosis. Electronically signed by: Marion Savage DO 12/24/2023 05:09 PM JUDITH
[2023-12-24 10:19] LABS: Creatinine, mg/dL 138.74
[2023-12-24 13:34] LABS: Creatinine, 24Hr Urine 0.9 G/Day (1.0-2.0); Total Volume 24 Hour Urine 650 mL
[2023-12-26 16:27] LABS: Calcium, 24 Hr Urine 9 mg/24 h; Calcium/Creatinine Ratio 11 mg/g creat (30-210); Creatinine 24Hr Urine 0.84 g/24 h (0.50-2.15)
== END 2023-12-24 07:37 | disposition home or self-care (01) ==
LOC: HO.US 07:36
PROVIDERS: Student in an Organized Health Care Education/Training Program; PCP Internal Medicine; Visit Provider Internal Medicine Nephrology
DX: N18.31 Chronic kidney disease, stage 3a (principal); E83.52 Hypercalcemia
CPT/HCPCS: 76775; 82340; 82570; 93975

== ENCOUNTER 2024-01-10 09:46 | Outpatient (REF) | payer OTHER, SELFPAY ==
[2024-01-10 10:14] LABS: MANUAL DIFF FLAG NO
[2024-01-10 10:25] LABS: Basophils Percent Auto 0.5 % (0-2); Eosinophils Absolute Auto 0.2 X10*3/uL (0.0-0.4); Eosinophils Percent Auto 1.7 % (0-4); Hematocrit 31.8 % (42.0-52.0); Hemoglobin 10.7 g/dl (14.0-18.0); Imm Gran Abs Auto 0.04 X10*3/uL (0.00-0.03); Imm Gran Pct Auto 0.5 % (0.0-0.4); Lymphocytes Absolute Auto 1.4 X10*3/uL (1.2-4.9); Lymphocytes Percent Auto 16.6 % (20-40); Mean Corpuscular HGB Conc 33.6 g/dl (31.0-36.0); Mean Corpuscular Hemoglobin 34.3 pg (27.0-33.0); Mean Corpuscular Volume 101.9 fL (80.0-98.0); Mean Platelet Volume 9.5 fL (9.4-12.4); Monocytes Absolute Auto 0.5 X10*3/uL (0.1-1.2); Monocytes Percent Auto 5.9 % (2-11); Neutrophils Absolute Auto 6.5 x10*3/uL (2.0-8.3); Neutrophils Percent Auto 74.8 % (45-73); Platelet Count 203 X10*3/uL (160-400); Red Blood Count 3.12 X10*6/uL (4.60-5.80); Red Cell Distribution Width 13.1 % (11.0-16.0); White Blood Count 8.7 X10*3/uL (4.8-10.8)
[2024-01-10 10:34] LABS: INTERNATIONAL NORM RATIO 0.8 (0.9-1.1); Prothrombin Time 8.8 SEC (10.9-12.4)
[2024-01-10 11:07] LABS: Parathyroid Hormone Intact 70.8 pg/mL (8.7-77.1)
[2024-01-10 11:17] LABS: Albumin Level 4.4 g/dL (3.5-5.0); Anion Gap 16 (12-20); Blood Urea Nitrogen 14 mg/dL (9-16); Calcium 9.8 mg/dL (8.4-10.2); Carbon Dioxide 23 mmol/L (22-29); Chloride 105 mmol/L (96-108); Estimated Glomerular Filt Rate 42; Magnesium 1.5 mg/dL (1.6-2.6); Potassium 4.9 mmol/L (3.3-5.1); Sodium 139 mmol/L (135-145)
[2024-01-10 11:27] LABS: Vitamin D 25-OH Total 25.9 ng/mL (>30)
[2024-01-10 11:35] LABS: Uric Acid 9.5 mg/dL (3.4-7.0)
[2024-01-13 11:08] LABS: Complement C3 135 mg/dL (82-185)
[2024-01-13 13:22] LABS: Calcium, Ionized 5.3 mg/dL (4.7-5.5)
[2024-01-14 08:08] LABS: Hepatitis B Core Antibody Nonreactive (Nonreactive); Hepatitis B Surface Antigen Nonreactive (Negative); ~Hepatitis C Antibody Nonreactive (Nonreactive)
[2024-01-24 09:52] LABS: IgA 259; IgG 1077
[2024-01-24 09:53] LABS: IgM 57
[2024-01-24 09:54] LABS: Anti DNA DS Antibody <1; Scleroderma 70 Antibody <1.0 NEG
[2024-01-24 09:55] LABS: Anti Glomerular Basement Memb <1.0
[2024-01-24 09:57] LABS: Phospholipase A2 IgG ELISA <4
[2024-01-24 09:58] LABS: Myeloperoxidase Antibody <1.0; Neutrophil Cyto Ab Screen NEGATIVE; Phospholipase A2 IgG IFA NEGATIVE
== END 2024-01-10 09:47 | disposition home or self-care (01) ==
LOC: HO.LAB 09:46
PROVIDERS: Student in an Organized Health Care Education/Training Program; PCP Internal Medicine; Visit Provider Internal Medicine Nephrology
DX: N18.31 Chronic kidney disease, stage 3a (principal); E83.52 Hypercalcemia
CPT/HCPCS: 36415; 80051; 82040; 82306; 82310; 82330; 82565; 82784; 83520; 83735; 83970; 84100; 84520; 84550; 85025; 85610; 86021; 86036; 86160; 86225; 86235; 86255; 86334; 86704; 86803; 87340

== ENCOUNTER 2024-01-14 11:17 | Outpatient (AMB) | payer OTHER, SELFPAY ==
--- NOTE | 2024-01-14 12:04 | HO.NEPHOV_ITS ---
Vital Signs 01/14/24 12:06 Height 5 ft 8 in Weight 143 lb 4 oz BMI 21.8 BP 140/78 H Blood Pressure Location Lt brachial Position Sitting Pulse 67 Pulse Source Pulse Oximeter Pulse Oximetry (%) 97 Oxygen Delivery Method Room Air Intake Visit Reasons: 1m follow up/ Conf Product Expert Required: No Accompanied by: Daughter Allergies No Known Allergies Allergy (Verified 01/14/24 12:06) HPI Comments Details: Bradley was seen in follow up for CKD and hypertension. He has immigrated to [facility] from [place] long time ago. He is a known diabetic & has been on metformin. He does not check his blood sugars regularly .He is on multiple antihypertensive medications. He denies any coronary artery disease, carotid stenosis congestive heart failure, CVA, peripheral arterial disease or any history of renal artery stenosis. He denies any family history of ESRD or renal transplantation. He does not have any sensorineural deafness or microscopic hematuria. He denies taking excessive nonsteroidal anti-inflammatories. He does not have any new bone or back pain. He denies epistaxis, recurrent sore throat, skin infections, uveitis, skin rashes, photosensitivity, epistaxis, joint swellings, dysuria or renal calculi. He does not have any hypoglycemias. His recent serum creatinine was 1.7 [facility] Medical History (Updated 12/19/23 @ 10:33 by Donte Bowens MD) Colon cancer screening Annual physical exam Shoulder abscess Multinodular goiter Graves disease Elbow pain, left Hyperthyroidism Hypertension Surgical History History of knee surgery Family History Mother Myocardial infarct Breast cancer Father Myocardial infarct Social History Housing: House Alcohol intake: current Alcohol intake frequency: does not drink Patient Tobacco Use Status: Current someday Tobacco user Tobacco use type: Cigarette Cigarettes Per Day: 2 Years Smoked: WORKING ON [employer] 1 a day (11/2022) e-Cigarette/Vaping Use: Never Used Second Hand Smoke Exposure: No service: No Current occupational status: employed Current occupational exposures/hazards: No Cognitive needs: No Hearing needs: No Vision needs: No Physical Exam Vital Signs: Last Vital Signs Pulse 67 01/14/24 12:06 BP 140/78 H 01/14/24 12:06 Pulse Ox 97 01/14/24 12:06 Oxygen Delivery Method Room Air 01/14/24 12:06 BMI result Body Mass Index 21.8 Const General: comfortable and no acute distress Orientation/consciousness: patient oriented x3 HEENT Head: Yes normocephalic Mouth: Normal oral and palatal mucosa present Eyes EOM: EOMs intact bilaterally Neck Neck: Yes supple Resp Auscultation: clear to auscultation bilaterally Cardio Jugular venous distension: no JVD Rate: regular rate GI Palpation (GI): Soft to palpation Auscultation: normal bowel sounds General: Yes no CVA tenderness Back/Spine/Pelvis Back: no CVA tenderness Skin General skin exam: no rashes or lesions noted Neuro General: patient oriented x3 and moves all extremities Extrem General: Yes no pedal edema Results Reviewed Nephrology Results: Hgb 10.7 g/dl (14.0-18.0) L 01/10/24 WBC 8.7 X10*3/uL (4.8-10.8) 01/10/24 Plt Count 203 X10*3/uL (160-400) 01/10/24 Sodium 139 mmol/L (135-145) 01/10/24 Potassium 4.9 mmol/L (3.3-5.1) 01/10/24 Chloride 105 mmol/L (96-108) 01/10/24 Carbon Dioxide 23 mmol/L (22-29) 01/10/24 BUN 14 mg/dL (9-16) 01/10/24 Creatinine 1.71 mg/dL (0.5-1.4) H 01/10/24 Calcium 9.8 mg/dL (8.4-10.2) 01/10/24 Phosphorus 3.0 mg/dL (2.7-4.5) 01/10/24 PTH Intact 70.8 pg/mL (8.7-77.1) 01/10/24 Urine Creatinine 155.66 mg/dL 11/06/23 Renal US 12/24/23 Assessment & Plan Assessment & Plan (1) CKD stage 3a, GFR 45-59 ml/min: Code(s): N18.31 - Chronic kidney disease, stage 3a Category: Medical (2) Hypertension: Code(s): I10 - Essential (primary) hypertension Category: Medical Qualifiers: Hypertension type: primary hypertension Qualified Code(s): I10 - Essential (primary) hypertension Plan 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 He is not known to have significant proteinuria. Differential diagnosis is quite broad at this point in time. All the possibilities have been discussed with him. W/U is in progress. I have ordered CT guided renal biopsy as well as 24 hour urine for creatinine clearance. I will consider switching his metformin to Jardiance at the next visit. All questions answered. Follow-up appointment given. Orders: Orders CT biopsy renal LT Today N18.31 - Chronic kidney disease, stage 3a Creatinine Clearance Urine 24U Today N18.31 - Chronic kidney disease, stage 3a Coding Level of Care Code Est Pt Level 4 (58973) Diagnoses CKD stage 3a, GFR 45-59 ml/min N18.31 Primary hypertension I10 Hypertension type: primary hypertension
[2024-01-14 12:06] VITALS: BP 140/78; PULSE 67; O2SAT 97; BMI 21.8
== END 2024-01-14 12:42 | disposition home or self-care (01) ==
PROVIDERS: PCP Internal Medicine; Visit Provider Internal Medicine Nephrology
DX: N18.31 Chronic kidney disease, stage 3a (principal); I10 Essential (primary) hypertension
CPT/HCPCS: 99214

== ENCOUNTER → 2024-01-14 11:17 | Outpatient (BNVA) | payer OTHER, SELFPAY | PROVIDERS: PCP Internal Medicine; Visit Provider Internal Medicine Nephrology | DX: E11.22 Type 2 diabetes mellitus with diabetic chronic kidney disease (principal); I12.9 Hypertensive chronic kidney disease with stage 1 through stage 4 chronic kidney disease, or unspecified chronic kidney disease; N18.31 Chronic kidney disease, stage 3a | CPT/HCPCS: 99212 ==

== ENCOUNTER 2024-02-03 12:25 | Outpatient (REF) | payer OTHER, SELFPAY ==
[2024-02-03 23:50] LABS: Thyroid Stimulating Hormone 0.77 uIU/mL (0.32-4.0)
[2024-02-04 00:30] LABS: Free T4 (Free Thyroxine) 1.06 ng/dL (0.71-1.85)
== END 2024-02-03 12:26 | disposition home or self-care (01) ==
LOC: HO.LAB 12:25
PROVIDERS: PCP Internal Medicine; Visit Provider Student in an Organized Health Care Education/Training Program
DX: E04.2 Nontoxic multinodular goiter (principal); E03.9 Hypothyroidism, unspecified
CPT/HCPCS: 36415; 84439; 84443

== ENCOUNTER 2024-02-18 12:34 | Outpatient (REF) | payer OTHER, SELFPAY | END 2024-02-18 12:35 | disposition home or self-care (01) | LOC: HO.LNP 12:34 | PROVIDERS: Visit Provider Internal Medicine Nephrology | DX: Z13.89 Encounter for screening for other disorder (principal) ==

== ENCOUNTER 2024-02-24 09:41 | Outpatient (AMB) | payer OTHER, SELFPAY ==
[2024-02-24 09:52] VITALS: BP 134/82; PULSE 77; O2SAT 99; BMI 21.3
--- NOTE | 2024-02-24 09:52 | A.OFFPC_ITS ---
Vital Signs 02/24/24 09:52 Height 5 ft 8 in Weight 140 lb BMI 21.3 BP 134/82 Blood Pressure Location Lt brachial Position Sitting Pulse 77 Pulse Source Pulse Oximeter Pulse Oximetry (%) 99 Oxygen Delivery Method Room Air Intake Visit Reasons: 3 month f/u Allergies No Known Allergies Allergy (Verified 02/24/24 09:57) Tobacco use date assessed: 02/24/24 Dental Screening Dental Screen Date: 02/24/24 Did you have a dental visit in the last 12 months?: Yes Did you have a dental problem in the last 6 months where you did not have access to dental care?: No Was dental information given to patient?: Patient has dentist HPI 3 month f/u HPI Details The patient is a 53-year-old male presenting with multiple chronic conditions, including diabetes mellitus type 2, hypertension, and hyperlipidemia. The patient reports recent ophthalmologic evaluation indicating the presence of diabetic retinopathy, characterized by new blood vessels at the back of the eyes that could bleed and lead to blindness if not closely monitored. The patient is aware of the significance of managing diabetes and blood pressure to prevent further ocular complications. The patient's blood pressure has been noted to be 134/82 mmHg, and he mentions an awareness of its importance in managing kidney health and cardiovascular ris k. Previous laboratory testing indicated high creatinine levels of 1.71 mg/dL, suggesting chronic kidney disease. The patient has not yet undergone a kidney biopsy but is scheduled for further evaluation. Additionally, the patient's A1c level was recorded at 5.9%, effectively maintaining it within the targeted range below 6.5%. The patient has left shoulder pain persisting for 6 to 9 months without a history of trauma. He denies rashes or skin changes but describes the pain as coming and going, without consistent reproduction during the physical exam. Previous imaging included a chest x-ray but not a shoulder x-ray. The patient reports using a massage gun to alleviate pain symptoms. Socially, the patient admits to occasional smoking and a desire to quit completely. Despite not being on cholesterol medication, previous lipid panel results showed an LDL level of 108 mg/dL, above the desired 100 mg/dL threshold, indicating hyperlipidemia requiring attention. [facility] Medical History Colon cancer screening Annual physical exam Shoulder abscess Multinodular goiter Graves disease Elbow pain, left Hyperthyroidism Hypertension Surgical History History of knee surgery Family History Mother Myocardial infarct Breast cancer Father Myocardial infarct Social History Housing: House Alcohol intake: current Alcohol intake frequency: does not drink Patient Tobacco Use Status: Current someday Tobacco user Tobacco use type: Cigarette Cigarettes Per Day: 2 Years Smoked: WORKING ON [employer] 1 a day (11/2022) e-Cigarette/Vaping Use: Never Used Second Hand Smoke Exposure: No service: No Current occupational status: employed Current occupational exposures/hazards: No Cognitive needs: No Hearing needs: No Vision needs: No Questionnaire PHQ-9 Over the last 2 weeks, how often have you been bothered by any of the following problems? 1. Little interest or pleasure in doing things: not at all 2. Feeling down, depressed, or hopeless: not at all 3. Trouble falling or staying asleep, or sleeping too much: not at all 4. Feeling tired or having little energy: not at all 5. Poor appetite or overeating: not at all 6. Feeling bad about yourself - or that you are a failure or have let yourself or your family down: not at all 7. Trouble concentrating on things, such as reading the newspaper or watching television: not at all 8. Moving or speaking so slowly that other people could have noticed. Or the opposite - being so fidgety or restless that you have been moving around a lot more than usual: not at all 9. Thoughts that you would be better off or of hurting yourself in some way: not at all Total score: 0 Depression Screening Interpretation: Negative Depression Screening Done: Yes 21656 - PHQ-9 Billing: Yes Source: Developed by Drs. Frank Cota, Bhumi Green, Jabari Mustafa and colleagues, with an educational baylee from [employer]. Thrive Questionnaire Date Thrive assessed: 02/24/24 I am a: Patient What is your living situation today?: I have a steady place to live Within the past 12 months, did the food you bought not last and you didn't have the money to get more?: Never true Within the past 12 months, did you worry whether your food would run out before you got money to buy more?: Never true Do you have trouble paying for medicines?: No Do you have trouble getting transportation to medical appointments?: No Do you have trouble paying your heating and electricity bill?: No Do you have trouble taking care of your child, family member or friend?: No Do you have trouble with day-to-day activities such as bathing, preparing meals, shopping, managing finances, etc.?: No Are you currently unemployed and looking for a job?: No Are you interested in more education?: No Please select the resources that you would like help with: None THRIVE Score: 0 AUDIT C Alcohol Use Questionnaire (AUDIT-C) 1. How often do you have a drink containing alcohol?: 4 or more times a week 2. How many drinks containing alcohol do you have on a typical day when you are drinking?: 1 or 2 (0) 3. How often do you have six or more drinks on one occasion?: Never Total Score: 4 Score Reviewed/Action Taken: No LUIZ-7 AMB Questionnaire LUIZ-7 Date LUIZ - 7 assessed: 02/24/24 Feeling nervous, anxious, or on edge: 0 = Not at all Not being able to stop or control worryin = Not at all Worrying too much about different things: 0 = Not at all Trouble relaxin = Not at all Being so restless that it is hard to sit still: 0 = Not at all Becoming easily annoyed or irritable: 0 = Not at all Feeling afraid as if something awful might happen: 0 = Not at all Total LUIZ-7 score (0-4 normal; 5-9 mild; 10-14 moderate; 15-21 severe): 0 Source: Developed by Drs. Frank Cota, Bhumi Green, Jabari Mustafa and colleagues, with an educational baylee from [employer]. LUIZ-7 Assessment Billing LUIZ-7 Assessment Tool: LUIZ-7 Assessment 93402 Physical exam (Primary Care) Vital Signs: Last Vital Signs Pulse 77 02/24/24 09:52 BP 134/82 02/24/24 09:52 Pulse Ox 99 02/24/24 09:52 Oxygen Delivery Method Room Air 02/24/24 09:52 BMI result Body Mass Index 21.3 Tobacco/Smoking Status: Tobacco use Status Tobacco use date assessed 02/24/24 02/24/24 09:59 Patient Tobacco Use Status Current someday Tobacco 02/24/24 09:59 Tobacco use type Cigarette 02/24/24 09:59 e-Cigarette/Vaping Use Never Used 02/24/24 09:59 PHQ-9: PHQ-9 Score PHQ-9: Total score 0 02/24/24 10:15 Depression Screening Interpretation: Negative Thrive Assessment: Date of Thrive Assessment Date Thrive assessed 02/24/24 02/24/24 09:59 Const General: alert; No acute distress Eyes Conjunctivae: conjunctivae normal Resp Auscultation: clear to auscultation bilaterally Cardio Rate: regular rate Rhythm: regular rhythm GI Inspection: Yes normal to inspection Extrem General: Yes normal to inspection and No edema Office Procedures Flu Questionnaire Does the patient have a severe egg allergy?: No Does the patient have severe life threatening allergies?: No Does the patient have a fever or illness today?: No Has the patient ever had Guillain-Albion Syndrome?: No Has the patient ever had any past reaction to a flu shot?: No Results AMB Hemoglobin A1c AMB Hemoglobin A1c 5.9 % Last Edit by Leilani Rider CMA on 02/24/24 10:02 Immunizations Fluarix Triv [id number] (PF) 45 mcg (15 mcg x 3)/0.5 mL IM syringe Performing Provider: Zenobia Dougherty MD Performing Location: [facility] Adult Primary [facility] Administered by: Leilani Rider CMA on 02/24/24 10:33 Dose Route Admin Location Dispensed Lot Number Expiration Date [facility] Advanced Practice Professional 0.5 mL IM Left Tricep 0.5 mL [id number] 08/10/24 [id number] [employer] VIS Given Date VIS Provided VIS Publication Date 02/24/24 Single Vaccine 20 Eligibility Eligibility Date Funding Source Not [facility] Eligible 02/24/24 Private Results Reviewed Results Reviewed: Laboratory Last Values Hgb A1c (Clinic) 5.9 % (4.0-6.0) 02/24/24 10:00 Coding Level of Care Code Est Pt Level 4 (57348) Diagnoses Type 2 diabetes mellitus with hyperglycemia, without long-term current use of insulin E11.65 Diabetes mellitus senior care insulin use: without petroleum terminal plant operator use Tobacco abuse Z72.0 Primary hypertension I10 Hypertension type: primary hypertension Anemia, unspecified type D64.9 Anemia type: unspecified type 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 Hypercholesterolemia E78.00 CKD stage 3a, GFR 45-59 ml/min N18.31 Shoulder pain, left M25.512 Additional Codes LUIZ-7 Assessment Billing - LUIZ-7 Assessment Tool: LUIZ-7 Assessment [id number] ([id number]) PHQ-9 - 60696 - PHQ-9 Billing: Yes ([id number]) Assessment & Plan Assessment & Plan (1) Type 2 diabetes mellitus with hyperglycemia: Code(s): E11.65 - Type 2 diabetes mellitus with hyperglycemia Category: Medical Qualifiers: Diabetes mellitus petroleum terminal plant operator insulin use: without senior care use Qualified Code(s): E11.65 - Type 2 diabetes mellitus with hyperglycemia (2) Tobacco abuse: Code(s): Z72.0 - Tobacco use Category: Medical (3) Hypertension: Code(s): I10 - Essential (primary) hypertension Category: Medical Qualifiers: Hypertension type: primary hypertension Qualified Code(s): I10 - Essential (primary) hypertension (4) Anemia: Code(s): D64.9 - Anemia, unspecified Category: Medical Qualifiers: Anemia type: unspecified type Qualified Code(s): D64.9 - Anemia, unspecified (5) Hypothyroid: Code(s): E03.9 - Hypothyroidism, unspecified Category: Medical Qualifiers: Hypothyroidism type: due to Terrell's thyroiditis Qualified Code(s): E06.3 - Autoimmune thyroiditis (6) Hypercholesterolemia: Code(s): E78.00 - Pure hypercholesterolemia, unspecified Category: Medical (7) CKD stage 3a, GFR 45-59 ml/min: Code(s): N18.31 - Chronic kidney disease, stage 3a Category: Medical (8) Shoulder pain, left: Code(s): M25.512 - Pain in left shoulder Category: Medical Plan - Request an x-ray of the left shoulder to assist in diagnosing the cause of pain, with a follow-up by orthopedics as needed. - Reinforce adherence to current antihypertensive and antidiabetic therapies given the well-controlled A1c and relatively acceptable blood pressure readings. - Advise on lifestyle modifications to cease smoking completely to mitigate compounded risks to health, with supportive resources for smoking cessation. - Order fasting lipid panel to reevaluate cholesterol levels and potentially consider pharmacological intervention if levels remain elevated. - Continue diabetic retinopathy monitoring, emphasizing regular ophthalmology appointments to prevent further ocular damage. - Coordinate with nephrology regarding the management plan for chronic kidney disease, including medication review and adjustments. Discuss the potential adjustment from metformin to another antidiabetic agent considering renal impairment. - Administer influenza vaccine given the ongoing flu season and diabetic status. - Provide dietary and lifestyle counseling to manage hyperlipidemia without immediate pharmacotherapy unless improvement isn't observed. Reinforce dietary modifications focusing on reducing saturated fats and incorporating cardiovascular-friendly options. Orders: Orders Comprehensive Met. Panel Today E11.65 - Type 2 diabetes mellitus with hyperglycemia Thyroid Stimulating Hormone Today E11.65 - Type 2 diabetes mellitus with hy perglycemia Free T4 (Free Thyroxine) Today E11.65 - Type 2 diabetes mellitus with hyperglycemia Hemoglobin A1c Today E11.65 - Type 2 diabetes mellitus with hyperglycemia AMB Hemoglobin A1c Today Z13.9 - Encounter for screening, unspecified Complete Blood Count Auto Diff Today E11.65 - Type 2 diabetes mellitus with hyperglycemia Lipid Panel Today E11.65 - Type 2 diabetes mellitus with hyperglycemia, E78.00 - Pure hypercholesterolemia, unspecified XR shoulder LT min 2V Today M25.512 - Pain in left shoulder Referrals Orthopedics Referral M25.512 - Pain in left shoulder
== END 2024-02-24 10:36 | disposition home or self-care (01) ==
PROVIDERS: PCP Internal Medicine; Visit Provider Internal Medicine
DX: I12.9 Hypertensive chronic kidney disease with stage 1 through stage 4 chronic kidney disease, or unspecified chronic kidney disease (principal); E11.65 Type 2 diabetes mellitus with hyperglycemia; N18.31 Chronic kidney disease, stage 3a; Z72.0 Tobacco use; D64.9 Anemia, unspecified; E06.3 Autoimmune thyroiditis; E78.00 Pure hypercholesterolemia, unspecified; M25.512 Pain in left shoulder; Z23 Encounter for immunization

== ENCOUNTER 2024-02-24 09:41 | Outpatient (REF) | payer OTHER, SELFPAY ==
--- NOTE | ~2024-02-24 | XR_ITS ---
EXAMINATION: XR SHOULDER, LEFT CLINICAL INFORMATION: M25.512 - Pain in left shoulder COMPARISON: None available. TECHNIQUE: AP external rotation, Grashey, scapular Y, and axillary views of the left shoulder. FINDINGS: The bones and soft tissues are normal. No fracture. Glenohumeral and acromioclavicular alignment is anatomic with normal joint space. No abnormal soft tissue calcifications. XR/XR shoulder LT min 2V IMPRESSION: Unremarkable left shoulder. Electronically signed by: Sheng Rios MD 02/27/2024 08:45 AM [facility]
[2024-02-24 12:12] LABS: MANUAL DIFF FLAG NO
[2024-02-24 12:31] LABS: Basophils Absolute Auto 0.1 X10*3/uL (0.0-0.2); Basophils Percent Auto 0.8 % (0-2); Eosinophils Absolute Auto 0.1 X10*3/uL (0.0-0.4); Eosinophils Percent Auto 0.8 % (0-4); Hematocrit 29.3 % (42.0-52.0); Hemoglobin 9.7 g/dl (14.0-18.0); Imm Gran Abs Auto 0.02 X10*3/uL (0.00-0.03); Imm Gran Pct Auto 0.3 % (0.0-0.4); Lymphocytes Absolute Auto 1.2 X10*3/uL (1.2-4.9); Lymphocytes Percent Auto 20.3 % (20-40); Mean Corpuscular HGB Conc 33.1 g/dl (31.0-36.0); Mean Corpuscular Hemoglobin 35.3 pg (27.0-33.0); Mean Corpuscular Volume 106.5 fL (80.0-98.0); Mean Platelet Volume 9.5 fL (9.4-12.4); Monocytes Absolute Auto 0.6 X10*3/uL (0.1-1.2); Monocytes Percent Auto 10.4 % (2-11); Neutrophils Percent Auto 67.4 % (45-73); Platelet Count 211 X10*3/uL (160-400); Red Blood Count 2.75 X10*6/uL (4.60-5.80); Red Cell Distribution Width 13.6 % (11.0-16.0)
[2024-02-24 12:39] LABS: Estimated Average Glucose 111 mg/dL; Hemoglobin A1C 88.1651 umol/L; Hemoglobin A1c % 5.5 % (<6.0); Total Hemoglobin (HGBA1C) 2429.9672 umol/L
[2024-02-24 13:07] LABS: Alanine Aminotransferase 41 U/L (0-40); Albumin Level 4.2 g/dL (3.5-5.0); Alkaline Phosphatase 68 U/L (39-117); Anion Gap 12 (12-20); Aspartate Amino Transferase 92 U/L (5-37); Bilirubin Total 0.6 mg/dL (0.0-1.0); Blood Urea Nitrogen 20 mg/dL (9-16); Calcium 9.4 mg/dL (8.4-10.2); Carbon Dioxide 26 mmol/L (22-29); Chloride 110 mmol/L (96-108); Cholesterol 220 mg/dL (<200); Estimated Glomerular Filt Rate 34; Glucose Random 100 mg/dL (60-115); HDL Cholesterol 100 mg/dL (>40); LDL Cholesterol Calculated 89 mg/dL (<100); Potassium 5.3 mmol/L (3.3-5.1); Sodium 143 mmol/L (135-145); Total Protein 7.1 g/dL (6.5-8.0); Triglycerides 158 mg/dL (<150)
[2024-02-24 13:23] LABS: Free T4 (Free Thyroxine) 1.11 ng/dL (0.71-1.85); Thyroid Stimulating Hormone 2.03 uIU/mL (0.32-4.0)
== END 2024-02-24 09:42 | disposition home or self-care (01) ==
LOC: HO.XRAY 09:41
PROVIDERS: PCP Internal Medicine; Visit Provider Internal Medicine
DX: E11.65 Type 2 diabetes mellitus with hyperglycemia (principal); I12.9 Hypertensive chronic kidney disease with stage 1 through stage 4 chronic kidney disease, or unspecified chronic kidney disease; E11.22 Type 2 diabetes mellitus with diabetic chronic kidney disease; N18.31 Chronic kidney disease, stage 3a; D63.1 Anemia in chronic kidney disease; Z23 Encounter for immunization; E03.9 Hypothyroidism, unspecified; E78.00 Pure hypercholesterolemia, unspecified; M25.512 Pain in left shoulder; Z72.0 Tobacco use; E04.2 Nontoxic multinodular goiter; E83.52 Hypercalcemia; Z79.899 Other long term (current) drug therapy
CPT/HCPCS: 36415; 73030; 80053; 80061; 83036; 84439; 84443; 85025; 90471; 90656; 96127; 99212

== ENCOUNTER 2024-02-24 10:51 | Outpatient (AMB) | payer OTHER, SELFPAY ==
--- NOTE | 2024-02-24 10:53 | A.OFFVIS_ITS ---
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 Required: No Accompanied by: Self / Same As Patient Allergies No Known Allergies Allergy (Verified 02/24/24 10:59) Medication List - Last Reconciled 02/24/24 by Lisset Bennett MD blood pressure monitor As directed blood sugar diagnostic (FreeStyle Lite Strips) As directed check the BS QD blood-glucose meter (FreeStyle Lite Meter kit) As directed check the BS QD cholecalciferol (vitamin D3) 25 mcg PO DAILY empagliflozin (Jardiance) 10 mg PO DAILY lancets (FreeStyle Lancets) As directed check the BS QD lisinopril 10 mg PO DAILY metoprolol succinate ER 50 mg PO DAILY 90 days sennosides-docusate sodium 8.6-50 mg (Senna Plus) 2 tab-caps (2 x 8.6-50 mg) PO BEDTIME sildenafil (Viagra) 50 mg PO DAILY PRN HPI Comments Details: 52-year-old male coming in today for follow up of hypothyroidism with prior history of Graves disease reverting to hypothyroidism, as well as noted to have intermittent hypercalcemia. Hypothyroidism : now biochemically euthyroid without meds Thyroid nodules Patient with prior history of Graves disease diagnosed in July 2020 when he was noted to have blood work consistent with hyperthyroidism with thyroid uptake and scan from September 2020 showing diffuse increased uptake. Thyrotropin receptor antibody levels were also noted to be elevated. Patient was started on methimazole 10 mg daily, however he subsequently developed hypothyroidism. He was started on levothyroxine. sometime in 2022 levothyroxine also stopped . Thyroid ultrasound from August 2020 also showed subcentimeter bilateral thyroid nodules. I reviewed the images myself and notably he has 2 solid, isoechoic subcentimeter nodules which were reported as being located inferior and lateral to the left thyroid lobe, however it is hard to tell and possibly these were just part of the thyroid lobe. No microcalcifications noted. The 0.6 cm solid, isoechoic nodule is taller than wide, which needs follow up ultrasound. On the thyroid uptake and scan in September 2020, he was also noted to have decreased uptake in the left lower which is consistent with these nodules. Most recent labs from October 2023 showed normal TSH of 2.49, normal free T4 of 1.20. Reports intermittent heat intolerance, lost 10 lbs in 3 months due to decreased appetite. No mood changes. No tiredness. No tremors, no palpitations. Patient currently denies diarrhea or constipation, anxiety, mood changes, low energy, changes in appearance of eyes or vision changes, tremors, increased diaphoresis or dry skin. ? Patient denies any difficulty swallowing, pain on swallowing or voice changes or difficulty breathing. Patient denies any history of childhood neck radiation. Denies having ever used lithium, amiodarone or biotin supplements. Patient denies any family history of thyroid cancer or thyroid disease. Mother : breast cancer During his visits in 2020, he was also noted to have diplopia in his left eye, with subsequent MRI and clinical findings not suggestive of typical features of thyroid eye disease, with MRI features consistent with orbital myositis. He was seen at [facility] in January 2022 when they agreed with the findings and referred him to Neurology. Subsequently he was treated with prednisone for the orbital myositis by Neurology. Current eye symptoms: Denies blurriness ,no diplopia , no pain on eye movements Last eye doctor visit: 6 months ago in [place]. Interval history Labs 02/03/2024 showed TSH normal at 0.77, free T4 1.06 Ultrasound thyroid, 11/25/2023 showed bilateral subcentimeter nodules that do not meet criteria for follow up. Inferior to the left lower pole thyroid gland was a 0.7 cm echogenic mass possibly suggesting parathyroid gland. Even though the report says this is new, I reviewed the ultrasound from 2020 which also commented on this. Intermittent hypercalcemia On chart review patient is also noted to have elevated calcium levels multiple times, at least since May 2020, with total calcium levels ranging anywhere f rom 9.6-10.7, with albumin around 4.5, 4.6. Corrected calcium would be slightly lower. Most recent sent labs from 11/06/2023 showed calcium level of 9.6, with albumin of 4.5. Labs from February 2023 showed total calcium of 10.5, with albumin of 4.6 corrected calcium would be 9.9, ionized calcium was also noted to be elevated at 5.6. No recent vitamin-D levels in the chart. History of fractures: None No bone density scan done. No abdominal ultrasound in the chart. 26 years ago had history of kidney stone, passed it no recent episodes. Reports intermittent abd pain, no polyuria, no constipation No family history of calcium related problems Father : has kidney stones No history of diarrhea, acid reflux, abdominal pain to suggest peptic ulcer disease No family history of pituitary tumors. Vitamin D not taken in the last 2 months. Milk once a week, yogurt 2-3 times a week, cheese once in a while Interval history Labs 01/10/2024, showed EGFR of 42 with creatinine of 1.71, he has been having a decline in his EGFR over 2023. Normal calcium 9.8, with albumin of 4.4, corrected calcium would be 9.4, normal ionized calcium of 5.3, normal PTH of 70.8, vitamin-D low at 25.9. Phosphorus normal at 3. Magnesium mildly low at 1.5. 12/24/2023 24 hour urine showed low volume of 600 cc only, calcium 24 hour noted to be low at 9 mg in 24 hours. Likely inappropriate collection. Ultrasound thyroid, 11/25/2023 showed bilateral subcentimeter nodules that do not meet criteria for follow up. Inferior to the left lower pole thyroid gland was a 0.7 cm echogenic mass possibly suggesting parathyroid gland. Even though the report says this is new, I reviewed the ultrasound from 2020 which also commented on this. Started taking 1000 units of vitamin-D in November 2023 Has somewhat increased calcium intake through diet my incorporating milk and yogurt. Review of systems Constitutional: no fevers, chills HEENT: no changes in vision Cardiac: No chest pain, discomfort or palpitations. Pulmonary: No SOB GI:No abdominal pain, no nausea or vomiting, no anorexia, no blood in stool : no burning micturition, dysuria or increase in urinary frequency Physical exam General: sitting comfortably in no acute distress HEENT: normocephalic/atraumatic, EOM intact, moist oral mucosa Neck: supple, symmetrical, no thyromegaly , no dorsocervical or supraclavicular fat pads Cardiac: normal heart sounds Pulm: normal breath sounds B/L, no added breath sounds Abd: not distended, no tenderness Extremities: no edema, no signs of myxedema Neuro: AAO x3, Speech: normal, no facial droop, moving all 4 extremities Laboratory Tests Laboratory Tests 05/26/20 07/29/20 11/28/20 15:25 15:15 10:53 Creatinine Estimated GFR Calcium 10.3 H Ionized Calcium Phosphorus Magnesium Albumin 4.6 4.7 25-OH Vitamin D Total TSH < 0.01 L < 0.01 L 69.29 H Free T4 2.27 H 1.63 0.67 L PTH Intact Ur 24 Hour Volume Ur Creatinine mg/dL Ur Creatinine 24 Hour Ur Calcium 24 Hr Calcium/Creat 24 Hr Thyroglobulin Antibody 1 Thyroid Peroxidase Ab 2 TSH Receptor Ab 11.38 H 02/20/21 11/10/21 12/07/22 09:48 10:12 10:38 Creatinine 1.34 Estimated GFR 57 Calcium 9.8 10.7 H D Ionized Calcium Phosphorus Magnesium Albumin 4.5 4.4 25-OH Vitamin D Total TSH 4.48 H 1.14 4.36 H Free T4 0.97 1.06 1.01 PTH Intact Ur 24 Hour Volume Ur Creatinine mg/dL Ur Creatinine 24 Hour Ur Calcium 24 Hr Calcium/Creat 24 Hr Thyroglobulin Antibody Thyroid Peroxidase Ab TSH Receptor Ab 03/12/23 06/17/23 11/06/23 11:00 11:20 11:02 Creatinine 1.45 H 1.42 H Estimated GFR 52 53 Calcium 10.5 H 9.6 D Ionized Calcium 5.6 H Phosphorus Magnesium Albumin 4.6 4.6 25-OH Vitamin D Total TSH 3.99 4.26 H 2.49 Free T4 0.97 1.06 1.20 PTH Intact 77.8 H Ur 24 Hour Volume Ur Creatinine mg/dL Ur Creatinine 24 Hour Ur Calcium 24 Hr Calcium/Creat 24 Hr Thyroglobulin Antibody Thyroid Peroxidase Ab TSH Receptor Ab 12/24/23 01/10/24 02/03/24 04:00 10:13 12:38 Creatinine 1.71 H Estimated GFR 42 Calcium 9.8 Ionized Calcium 5.3 Phosphorus 3.0 Magnesium 1.5 L Albumin 4.4 25-OH Vitamin D Total 25.9 L TSH 0.77 Free T4 1.06 PTH Intact 70.8 Ur 24 Hour Volume 650 Ur Creatinine mg/dL 138.74 Ur Creatinine 24 Hour 0.9 L Ur Calcium 24 Hr 9 L Calcium/Creat 24 Hr 11 L Thyroglobulin Antibody Thyroid Peroxidase Ab TSH Receptor Ab THYROID UPTAKE AND SCAN 09/14/20 CLINICAL INFORMATION: Thyrotoxicosis. COMPARISON: No previous radionuclide thyroid scan is available for comparison. Thyroid ultrasound dated 08/22/2020 is available for comparison. TECHNIQUE: Following the oral administration of 281 microcuries of I-123 sodium iodide, thyroid uptake was performed and expressed as a percentage of the administrated dose. Gamma scintillation camera images of the thyroid in the anterior and right and left anterior oblique views were obtained using a pinhole collimator following the administration of 10 mCi Tc-99m pertechnetate. FINDINGS: The uptake is 7.8% at 4 hours and 27.6% at 24 hours (Normal radioiodine uptake at 24 hours is 10% to 30%). The radioiodine uptake is normal. The radiopertechnetate thyroid scintigram demonstrates the thyroid gland to be normal in size, shape, and position. There is homogeneous distribution of activity within the the gland with no focal abnormalities noted. The trapping function appears normal. There is a focus of decreased activity of moderate severity present in the lower pole of the left lobe. Otherwise there is homogeneous distribution of activity in the remainder the left lobe and throughout the right lobe, but the trapping function is markedly increased diffusely. A single anterior radioiodine image obtained at the time of the 24-hour uptake measurement is similar to the radio pertechnetate image but does not delineate the detail within the gland as well. The thyroid ultrasound dated 08/22/2020 demonstrated significant nodularity in or immediately adjacent to the lower pole the left lobe that probably corresponds to the focus of decreased activity on the current study at this site. 2 additional subcentimeter nodules in the left lower pole and right mid pole are too small to be visualized on this radionuclide images and are not delineated. NM/NM thyroid w uptake IMPRESSION: 1. A solitary hypofunctioning (cold) nodule is likely present in the lower pole of the left lobe. Further characterization of this with ultrasound-guided fine-needle aspirate is recommended. 2. Homogeneous distribution of activity there is diffusely increased trapping function within the remainder of the thyroid gland despite its normal size and normal radioiodine uptake is consistent with Graves' disease in the clinical setting of hyperthyroidism US THYROID 08/22/20 CLINICAL INFORMATION: Thyrotoxicosis, unspecified without thyrotoxic crisis or storm. COMPARISON: None TECHNIQUE: Linear transducer grayscale and color Doppler examination with attention to the region of the thyroid. FINDINGS: SIZE: Measurements of the thyroid lobes and nodules are given in sagittal, anteroposterior and transverse dimensions respectively. Right Thyroid Lobe: 4.6 x 1.5 x 1.5 cm, volume 5.4 mL. Parenchyma: The gland echotexture is homogeneous. Thyroid vascularity is normal. Left Thyroid Lobe: 4.8 x 1.4 x 1.4 cm, volume 4.9 mL. Parenchyma: The gland echotexture is homogeneous. Thyroid vascularity is normal. Isthmus: 0.2 cm in maximum AP dimension. Estimated total number of nodules greater than or equal to 1 cm: 0. Clinical Education Academic Coordinator nodules are described as follows: 1. Location: Left lower pole. Size: 0.3 x 0.1 x 0.2 cm, volume 0.01 mL. Nodule characteristics: Composition: Cystic(0). ACR TI-RADS total points: 0 ACR TI-RADS category: 1 2. Location: Right mid pole. Size: 0.3 x 0.2 x 0.2 cm, volume 0.01 mL. Nodule characteristics: Composition: Cystic(0). ACR TI-RADS total points: 0 ACR TI-RADS category: 1 NODES: There are 2 hyperechoic solid nodules slightly posterior and lateral to the inferior left lobe. These measure 6 x 4 x 4 mm and 8 x 5 x 10 mm. Both lesions may have a thin peripheral hypoechoic component. It is uncertain whether these represent lymph nodes with prominent fatty jc and cortical thinning. US/US thyroid IMPRESSION: Normal-sized thyroid gland with small bilateral thyroid nodules. 2 hyperechoic lesions posterior and lateral to the inferior left lobe. It is uncertain whether these represent lymph nodes with prominent fatty jc and cortical thinning or other soft tissue lesion. US RENAL ARTERY DOPPLER 12/24/23 CLINICAL INFORMATION: Chronic kidney disease, stage 3a COMPARISON: None TECHNIQUE: Renal ultrasound. Doppler ultrasound (spectral analysis and color Doppler) of the renal arteries and aorta were performed. FINDINGS: The right kidney measures 10.6 x 4.8 x 5.8 cm in sagittal, AP and transverse dimensions. The left kidney measures 9.8 x 4.5 x 4.1 cm in sagittal, AP and transverse dimensions. The kidneys show no masses, calculi or hydronephrosis. The corticomedullary differentiation is normal. RENAL ARTERY VELOCITIES: Right: Proximal: 83 cm/s. Mid: 73.1 cm/s. Distal: 80.5 cm/s. Left: Proximal: 44.5 cm/s. Mid: 73.6 cm/s. Distal: 30 cm/s. Second distal: 23.7 cm/s. INTERLOBAR RESISTIVE INDICES: Right: Upper: 0.71 Mid: 0.76 Lower: 0.7 Left: Upper: 0.68 Mid: 0.69 Lower: 0.60 Mid aortic velocity: 112 cm/s. Renal Aortic Ratio: Right: 0.74 Left: 0.66 US/US renal doppler IMPRESSION: 1. Normal renal ultrasound. 2. No Doppler evidence of renal artery stenosis. Electronically signed by: Marion Savage DO 12/24/2023 05:09 PM [facility] Medical History Colon cancer screening Annual physical exam Shoulder abscess Multinodular goiter Graves disease Elbow pain, left Hyperthyroidism Hypertension Surgical History History of knee surgery Family History Mother Myocardial infarct Breast cancer Father Myocardial infarct Social History Housing: House Alcohol intake: current Alcohol intake frequency: does not drink Patient Tobacco Use Status: Current someday Tobacco user Tobacco use type: Cigarette Cigarettes Per Day: 2 Years Smoked: WORKING ON [employer] 1 a day (11/2022) e-Cigarette/Vaping Use: Never Used Second Hand Smoke Exposure: No service: No Current occupational status: employed Current occupational exposures/hazards: No Cognitive needs: No Hearing needs: No Vision needs: No Physical Exam Vital Signs: Last Vital Signs Pulse 67 02/24/24 10:57 BP 138/88 02/24/24 10:57 BMI result Body Mass Index 21.1 Results AMB Hemoglobin A1c AMB Hemoglobin A1c 5.9 % Last Edit by Leilani Rider CMA on 02/24/24 10:02 Assessment & Plan Assessment & Plan (1) Hypothyroid: Code(s): E03.9 - Hypothyroidism, unspecified Category: Medical Qualifiers: 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 Now biochemically euthyroid off levothyroxine. Currently does not have any symptoms of hypo or hyperthyroidism though he has lost some weight due to reduced appetite. Labs from December 2023 showed he is biochemically euthyroid. Plan: -repeat TFTs annually, primary care physician can check these once a year (2) Multinodular goiter: Code(s): E04.2 - Nontoxic multinodular goiter Category: Medical Plan: He had a thyroid ultrasound in 2020 which also showed subcentimeter bilateral thyroid nodules. I reviewed the images myself and notably he has 2 solid, isoechoic subcentimeter nodules which were reported as being located inferior and lateral to the left thyroid lobe, however it is hard to tell and possibly these were just part of the thyroid lobe. No microcalcifications noted. The 0.6 cm solid, isoechoic nodule is taller than wide, which needs follow up ultrasound. On the thyroid uptake and scan in September 2020, he was also noted to have decreased uptake in the left lower which is consistent with these nodules. Ultrasound thyroid, 11/25/2023 showed bilateral subcentimeter nodules that do not meet criteria for follow up. Inferior to the left lower pole thyroid gland was a 0.7 cm echogenic mass possibly suggesting parathyroid gland. Even though the report says this is new, I reviewed the ultrasound from 2020 which also commented on this. At this point none of these nodules meet criteria for follow up. I counseled the patient regarding compressive symptoms in that if he has any compressive symptoms/clinical changes, his primary care again repeat an ultrasound and refer back to us if needed. (3) Hypercalcemia: Code(s): E83.52 - Hypercalcemia Category: Medical Plan: On chart review patient is also noted to have elevated calcium levels multiple times, at least since May 2020, with total calcium levels ranging anywhere from 9.6-10.7, with albumin around 4.5, 4.6. Corrected calcium would be slightly lower. Most recent sent labs from 11/06/2023 showed calcium level of 9.6, with albumin of 4.5. Labs from February 2023 showed total calcium of 10.5, with albumin of 4.6 corrected calcium would be 9.9, ionized calcium was also noted to be elevated at 5.6. No recent vitamin-D levels in the chart. He has not been taking any vitamin-D supplements. Barely has any nutritional intake of calcium. No history of fractures. He does have chronic kidney disease though he also has a uncontrolled hypertension likely from that. He has a prior history of kidney stones many years ago, also has family history of kidney stones in father. No recent kidney stones or hematuria. Labs 01/10/2024, showed EGFR of 42 with creatinine of 1.71, he has been having a decline in his EGFR over 2023. Normal calcium 9.8, with albumin of 4.4, corrected calcium would be 9.4, normal ionized calcium of 5.3, normal PTH of 70.8, vitamin-D low at 25.9. Phosphorus normal at 3. Magnesium mildly low at 1.5. 12/24/2023 24 hour urine showed low volume of 600 cc only, calcium 24 hour noted to be low at 9 mg in 24 hours. Likely inappropriate collection. Ultrasound thyroid, 11/25/2023 showed bilateral subcentimeter nodules that do not meet criteria for follow up. Inferior to the left lower pole thyroid gland was a 0.7 cm echogenic mass possibly suggesting parathyroid gland. Even though the report says this is new, I reviewed the ultrasound from 2020 which also commented on this. Started taking 1000 units of vitamin-D in November 2023 Has somewhat increased calcium intake through diet my incorporating milk and yogurt. At this time given all labs are normal, I have asked him to have his primary care physician repeat his calcium levels at least once a year. He is undergoing workup with Nephrology for declining kidney function in pending a renal biopsy. I have asked him to continue taking 1000 units of vitamin-D given low vitamin-D level. I have also asked him to maintain 1000 mg of calcium in his diet by taking 2-3 servings of calcium rich foods daily.. Plan: -continue taking 2 servings of calcium rich foods daily -continue taking vitamin D 1000 units daily -primary care physician can repeat calcium, albumin, vitamin-D and PTH levels annually to ensure they remain normal. He can be referred back to us if elevated. 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
[2024-02-24 10:57] VITALS: BP 138/88; PULSE 67; BMI 21.1
== END 2024-02-24 11:26 | disposition home or self-care (01) ==
PROVIDERS: PCP Internal Medicine; Visit Provider Student in an Organized Health Care Education/Training Program
DX: E06.3 Autoimmune thyroiditis (principal); E04.2 Nontoxic multinodular goiter; E83.52 Hypercalcemia
CPT/HCPCS: 99213

== ENCOUNTER → 2024-02-24 12:14 | Outpatient (BNV) | payer OTHER, SELFPAY | PROVIDERS: PCP Internal Medicine; Visit Provider Radiology Diagnostic Radiology | DX: M25.512 Pain in left shoulder (principal) | CPT/HCPCS: 73030 ==

== ENCOUNTER 2024-03-03 08:55 | Day surgery (SDC) | payer OTHER, SELFPAY ==
[2024-03-03] VITALS (19 sets, daily range): BP systolic 106–176; BP diastolic 67–96; PULSE 64–110; RESP 10–16; TEMP 36.3–36.4; O2SAT 98–100; BMI 20.4
--- NOTE | ~2024-03-03 | CT_ITS ---
CKD3, hypertension, diabetes PROCEDURES: 1. Limited preprocedure CT of the abdomen. Permanent images saved in PACS. 2. CT-guided non-targeted biopsy of the left kidney. 3. Limited postprocedure of CT of the abdomen. Permanent images saved in PACS. CLINICIANS: Kwan Trinidad PA-C MEDICATIONS: -Versed 1.5 mg, Fentanyl 75 mcg, and lidocaine 1% 10 mL SQ -Antibiotics: None -For additional details, please see nursing flowsheet. COMPLICATIONS: None ESTIMATED BLOOD LOSS: < 5 ml CONTRAST: None SPECIMENS: 3 x 18 g cores were placed in saline MODERATE SEDATION TIME: 22 min PROCEDURE NOTE: The procedure, risks, benefits, and alternatives were carefully explained to the patient and written informed consent was obtained. The patient was placed prone on the CT table. A timeout was performed. A limited CT of the abdomen was performed to localize the left kidney and choose appropriate needle entry and trajectory. The patient was prepped and draped in usual sterile fashion. The skin and deeper soft tissues were anesthetized with lidocaine. Under CT guidance, a 17 gauge trocar needle was advanced to the left lower pole of the kidney. An 18 gauge biopsy device was inserted through the trocar needle advanced into the left kidney. A total of 3, 18 gauge cores were performed. The specimens were placed in saline. A Gelfoam slurry was then administered through the trocar needle and into the left perinephric space. The needle was removed. A dry dressing was applied and secured with Tegaderm. There were no immediate complications. The patient was stable after the procedure and was transferred to the post anesthesia care unit. The procedure was done under moderate sedation with a dedicated nurse for monitoring of vital signs. CT/CT biopsy renal LT Impression: CT-guided non-targeted left renal biopsy This procedure was performed by Kwan Trinidad PA-C and supervised by Dr. Bennett. Electronically signed by: Jeramie Burton MD 03/05/2024 06:07 PM [facility]
[2024-03-03] MEDS: hydrALAZINE HCl 20 MG/ML VIAL IVPUSH (10:19)
--- NOTE | 2024-03-03 10:29 | MHC.SHP ---
Pre-Procedural Eval Section A - 24 Hr Update-Section A only Date of Service: 03/03/24 Section B - Complete if H&P > 30 days Chief Complaint: KIDNEY DISEASE STAGE 3A,LEFT Details of Present Illness: 53 y/o man with CKD, HTN, and DM. Nephrology requests a renal biopsy. Relevant Family History (Specify if Yes): No Relevant Social History: None Present Medications: see Short Stay Collaborative assessment Medical History: Significant History History of Previous Operations: No relevant previous surgery Allergies: Allergies Allergy/AdvReac Type Severity Reaction Status Date / Time No Known Allergies Allergy Verified 02/24/24 10:59 Review of Systems Sugical H&P ROS: Negative: Constitution, Cardiovascular and Respiratory and Yes, Specify: Psychiatric (anxious) Exam Surgical H&P Exam: Normal: Heart, Normal: Lungs, Normal: Skin and Normal: Neurological Plan 53 y/o man with CKD, HTN, and DM -Non targeted renal biopsy. Time Spent With Patient Time: Total time managing care of this patient today ____ minutes.
[2024-03-03] MEDS: Acetaminophen 1,000 MG/100 ML PIGGYBACK 400 MG IV (10:38)
[2024-03-03] MEDS: Midazolam HCl 2 MG/2 ML VIAL 1 MG IVPUSH ×2 (11:04→11:09)
[2024-03-03] MEDS: fentaNYL citrate/PF 100 MCG/2 ML VIAL 50 MCG IVPUSH (11:04)
[2024-03-03] MEDS: fentaNYL citrate/PF 100 MCG/2 ML VIAL 25 MCG IVPUSH (11:09)
[2024-03-03] MEDS: Lidocaine HCl 1 % MPF 30 ML VIAL 10 ML SUBCUT (11:38)
== END 2024-03-03 14:35 | disposition home or self-care (01) ==
PROVIDERS: Physician Assistant Surgical; Radiology Vascular & Interventional Radiology; PCP Internal Medicine; Visit Provider Internal Medicine Nephrology
DX: I12.9 Hypertensive chronic kidney disease with stage 1 through stage 4 chronic kidney disease, or unspecified chronic kidney disease (principal); E11.65 Type 2 diabetes mellitus with hyperglycemia; E11.22 Type 2 diabetes mellitus with diabetic chronic kidney disease; N18.31 Chronic kidney disease, stage 3a; D64.9 Anemia, unspecified; E78.5 Hyperlipidemia, unspecified; E05.20 Thyrotoxicosis with toxic multinodular goiter without thyrotoxic crisis or storm; Z79.84 Long term (current) use of oral hypoglycemic drugs; Z79.899 Other long term (current) drug therapy; Z98.890 Other specified postprocedural states; F17.210 Nicotine dependence, cigarettes, uncomplicated
CPT/HCPCS: 50200; 77012; 86850; 86900; 86901; 88300; 88305; 88313; 88346; 88348; 88350; 99152; J0131; J0360; J1920; J2003; J2250; J2310; J3010

== ENCOUNTER → 2024-03-03 10:55 | Outpatient (BNV) | payer OTHER, SELFPAY | PROVIDERS: PCP Internal Medicine; Visit Provider Physician Assistant Surgical | DX: E11.22 Type 2 diabetes mellitus with diabetic chronic kidney disease (principal); N18.30 Chronic kidney disease, stage 3 unspecified | CPT/HCPCS: 50200; 77012 ==

== ENCOUNTER 2024-03-20 13:06 | Outpatient (REF) | payer OTHER, SELFPAY ==
[2024-03-20 14:21] LABS: Alanine Aminotransferase 31 U/L (0-40); Albumin Level 3.9 g/dL (3.5-5.0); Alkaline Phosphatase 85 U/L (39-117); Anion Gap 14 (12-20); Aspartate Amino Transferase 55 U/L (5-37); Bilirubin Direct 0.2 mg/dL (0.0-0.5); Bilirubin Total 0.4 mg/dL (0.0-1.0); Blood Urea Nitrogen 16 mg/dL (9-16); Carbon Dioxide 25 mmol/L (22-29); Chloride 104 mmol/L (96-108); Estimated Glomerular Filt Rate 49; Potassium 5.2 mmol/L (3.3-5.1); Sodium 138 mmol/L (135-145); Total Protein 7.2 g/dL (6.5-8.0)
[2024-03-20 14:48] LABS: Creatinine, mg/dL 85.24
[2024-03-20 14:57] LABS: Creatinine (CrCl) 1.52 mg/dL (0.5-1.4); Creatinine, 24Hr Urine 0.8 G/Day (1.0-2.0); Total Volume 24 Hour Urine 900 mL
[2024-03-21 08:19] LABS: HBS Num1 0.27 mIU/mL (0-7.99); HBc Num1 0.11 S/CO (0.00-0.79); HBsAGNum1 0.32 S/CO (0.00-0.99); Hepatitis B Core Antibody Nonreactive (Nonreactive); Hepatitis B Surface Antigen Negative (Negative); ~HepC Num1 0.06 S/CO (0.00-0.79); ~Hepatitis B Surface Antibody NONREACTIVE (Nonreactive); ~Hepatitis C Antibody Nonreactive (Nonreactive)
== END 2024-03-20 13:07 | disposition home or self-care (01) ==
LOC: HO.LAB 13:06
PROVIDERS: PCP Internal Medicine; Visit Provider Internal Medicine Nephrology
DX: N18.31 Chronic kidney disease, stage 3a (principal); R79.89 Other specified abnormal findings of blood chemistry
CPT/HCPCS: 36415; 80051; 80076; 82565; 82575; 84520; 86704; 86706; 86803; 87340

== ENCOUNTER 2024-03-26 10:36 | Outpatient (AMB) | payer OTHER, SELFPAY ==
--- NOTE | 2024-03-26 10:44 | HO.NEPHOV_ITS ---
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 He has immigrated to [facility] from [facility] long time ago. He is a known diabetic & has been on metformin. He does not check his blood sugars regularly .He is on multiple antihypertensive medications. He denies any coronary artery disease, carotid stenosis congestive heart failure, CVA, peripheral arterial disease or any history of renal artery stenosis. He denies any family history of ESRD or renal transplantation. He does not have any sensorineural deafness or microscopic hematuria. He denies taking excessive nonsteroidal anti-inflammatories. He does not have any new bone or back pain. He denies epistaxis, recurrent sore throat, skin infections, uveitis, skin rashes, photosensitivity, epistaxis, joint swellings, dysuria or renal calculi. He does not have any hypoglycemias. His recent serum creatinine was 1.52. He had a renal biopsy which showed diabetic renal disease. [facility] Medical History Colon cancer screening Annual physical exam Shoulder abscess Multinodular goiter Graves disease Elbow pain, left Hyperthyroidism Hypertension Surgical History History of knee surgery Family History Mother Myocardial infarct Breast cancer Father Myocardial infarct Social History Housing: House Alcohol intake: current Alcohol intake frequency: does not drink Patient Tobacco Use Status: Current someday Tobacco user Tobacco use type: Cigarette Cigarettes Per Day: 2 Years Smoked: WORKING ON [employer] 1 a day (11/2022) e-Cigarette/Vaping Use: Never Used Second Hand Smoke Exposure: No service: No Current occupational status: employed Current occupational exposures/hazards: No Cognitive needs: No Hearing needs: No Vision needs: No Review of Systems Const All systems reviewed & are unremarkable except as noted in HPI and below Physical Exam Vital Signs: Last Vital Signs BP 124/70 03/26/24 10:45 BMI result Body Mass Index 21.0 Const General: comfortable and no acute distress Orientation/consciousness: patient oriented x3 HEENT Head: Yes normocephalic Mouth: Normal oral and palatal mucosa present Eyes EOM: EOMs intact bilaterally Neck Neck: Yes supple Resp Auscultation: clear to auscultation bilaterally Cardio Jugular venous distension: no JVD Rate: regular rate GI Palpation (GI): Soft to palpation Auscultation: normal bowel sounds General: Yes no CVA tenderness Back/Spine/Pelvis Back: no CVA tenderness Skin General skin exam: no rashes or lesions noted Neuro General: patient oriented x3 and moves all extremities Extrem General: Yes no pedal edema Results Reviewed Nephrology Results: Sodium 138 mmol/L (135-145) 03/20/24 Potassium 5.2 mmol/L (3.3-5.1) H 03/20/24 Chloride 104 mmol/L (96-108) 03/20/24 Carbon Dioxide 25 mmol/L (22-29) 03/20/24 BUN 16 mg/dL (9-16) 03/20/24 Creatinine 1.52 mg/dL (0.5-1.4) H 03/20/24 Calcium 9.4 mg/dL (8.4-10.2) 02/24/24 Assessment & Plan Assessment & Plan (1) CKD stage 3a, GFR 45-59 ml/min: Comment: Renal biopsy 03/02/2024 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 He is not known to have significant proteinuria. His 24 hour urine for creatinine clearance was close to 40 mls/mt. I switched his metformin to Jardiance today. All questions answered. Follow- up appointment given. Orders: Orders Blood Urea Nitrogen 4 Weeks E11.21 - Type 2 diabetes mellitus with diabetic nephropathy, I10 - Essential (primary) hypertension, N18.31 - Chronic kidney disease, stage 3a Electrolytes 4 Weeks E11.21 - Type 2 diabetes mellitus with diabetic nephropathy, I10 - Essential (primary) hypertension, N18.31 - Chronic kidney disease, stage 3a Creatinine 4 Weeks E11.21 - Type 2 diabetes mellitus with diabetic nephropathy, I10 - Essential (primary) hypertension, N18.31 - Chronic kidney disease, stage 3a Medications: New empagliflozin (Jardiance) 10 mg PO DAILY 30 tabs 6RF Coding Level of Care Code Est Pt Level 4 (59739) Diagnoses CKD stage 3a, GFR 45-59 ml/min N18.31 Primary hypertension I10 Hypertension type: primary hypertension Diabetic nephropathy associated with type 2 diabetes mellitus E11.
[2024-03-26 10:45] VITALS: BP 124/70; BMI 21.0
== END 2024-03-26 11:06 | disposition home or self-care (01) ==
PROVIDERS: PCP Internal Medicine; Visit Provider Internal Medicine Nephrology
DX: I12.9 Hypertensive chronic kidney disease with stage 1 through stage 4 chronic kidney disease, or unspecified chronic kidney disease (principal); E11.22 Type 2 diabetes mellitus with diabetic chronic kidney disease; N18.31 Chronic kidney disease, stage 3a
CPT/HCPCS: 99214

== ENCOUNTER → 2024-03-26 10:36 | Outpatient (BNVA) | payer OTHER, SELFPAY | PROVIDERS: PCP Internal Medicine; Visit Provider Internal Medicine Nephrology | DX: E11.22 Type 2 diabetes mellitus with diabetic chronic kidney disease (principal); I12.9 Hypertensive chronic kidney disease with stage 1 through stage 4 chronic kidney disease, or unspecified chronic kidney disease; N18.31 Chronic kidney disease, stage 3a; E11.21 Type 2 diabetes mellitus with diabetic nephropathy | CPT/HCPCS: 99212 ==

== ENCOUNTER 2024-05-05 09:20 | Outpatient (REF) | payer OTHER, SELFPAY ==
[2024-05-05 18:35] LABS: Anion Gap 10 (12-20); Blood Urea Nitrogen 14 mg/dL (9-16); Carbon Dioxide 20 mmol/L (22-29); Chloride 115 mmol/L (96-108); Estimated Glomerular Filt Rate 58; Potassium 4.9 mmol/L (3.3-5.1); Sodium 140 mmol/L (135-145)
[2024-05-05 18:49] LABS: Creatinine Urine 54.33 mg/dL; Total Protein Urine Random < 7 mg/dL (<12)
[2024-05-06 06:12] LABS: Estimated Average Glucose 123 mg/dL; Hemoglobin A1c % 5.9 % (<6.0)
== END 2024-05-05 09:21 | disposition home or self-care (01) ==
LOC: HO.HKASLDS 09:20
PROVIDERS: PCP Internal Medicine; Visit Provider Internal Medicine Nephrology
DX: E11.21 Type 2 diabetes mellitus with diabetic nephropathy (principal); I12.9 Hypertensive chronic kidney disease with stage 1 through stage 4 chronic kidney disease, or unspecified chronic kidney disease; E11.22 Type 2 diabetes mellitus with diabetic chronic kidney disease; N18.31 Chronic kidney disease, stage 3a
CPT/HCPCS: 36415; 80051; 82565; 82570; 83036; 84156; 84520; 99212

== ENCOUNTER 2024-05-05 09:20 | Outpatient (AMB) | payer OTHER, SELFPAY ==
--- NOTE | 2024-05-05 09:30 | HO.NEPHOV_ITS ---
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 He has immigrated to [facility] from [facility] long time ago. He is a known diabetic & has been on metformin. He does not check his blood sugars regularly .He is on multiple antihypertensive medications. He denies any coronary artery disease, carotid stenosis congestive heart failure, CVA, peripheral arterial disease or any history of renal artery stenosis. He denies any family history of ESRD or renal transplantation. He does not have any sensorineural deafness or microscopic hematuria. He denies taking excessive nonsteroidal anti-inflammatories. He does not have any new bone or back pain. He denies epistaxis, recurrent sore throat, skin infections, uveitis, skin rashes, photosensitivity, epistaxis, joint swellings, dysuria or renal calculi. He does not have any hypoglycemias. His recent serum creatinine was 1.52. He had a renal biopsy which showed diabetic renal disease. [facility] Medical History Colon cancer screening Annual physical exam Shoulder abscess Multinodular goiter Graves disease Elbow pain, left Hyperthyroidism Hypertension Surgical History History of knee surgery Family History Mother Myocardial infarct Breast cancer Father Myocardial infarct Social History Housing: House Alcohol intake: current Alcohol intake frequency: does not drink Patient Tobacco Use Status: Current someday Tobacco user Tobacco use type: Cigarette Cigarettes Per Day: 2 Years Smoked: WORKING ON [employer] 1 a day (11/2022) e-Cigarette/Vaping Use: Never Used Second Hand Smoke Exposure: No service: No Current occupational status: employed Current occupational exposures/hazards: No Cognitive needs: No Hearing needs: No Vision needs: No Review of Systems Const All systems reviewed & are unremarkable except as noted in HPI and below Physical Exam Vital Signs: Last Vital Signs BP 130/86 05/05/24 09:31 BMI result Body Mass Index 20.9 Const General: comfortable and no acute distress Orientation/consciousness: patient oriented x3 HEENT Head: Yes normocephalic Mouth: Normal oral and palatal mucosa present Eyes EOM: EOMs intact bilaterally Neck Neck: Yes supple Resp Auscultation: clear to auscultation bilaterally Cardio Jugular venous distension: no JVD Rate: regular rate GI Palpation (GI): Soft to palpation Auscultation: normal bowel sounds General: Yes no CVA tenderness Back/Spine/Pelvis Back: no CVA tenderness Skin General skin exam: no rashes or lesions noted Neuro General: patient oriented x3 and moves all extremities Extrem General: Yes no pedal edema Results Reviewed Nephrology Results: Hgb 9.7 g/dl (14.0-18.0) L 02/24/24 WBC 6.0 X10*3/uL (4.8-10.8) 02/24/24 Plt Count 211 X10*3/uL (160-400) 02/24/24 Sodium 138 mmol/L (135-145) 03/20/24 Potassium 5.2 mmol/L (3.3-5.1) H 03/20/24 Chloride 104 mmol/L (96-108) 03/20/24 Carbon Dioxide 25 mmol/L (22-29) 03/20/24 BUN 16 mg/dL (9-16) 03/20/24 Creatinine 1.52 mg/dL (0.5-1.4) H 03/20/24 Calcium 9.4 mg/dL (8.4-10.2) 02/24/24 Assessment & Plan Assessment & Plan (1) Diabetic nephropathy associated with type 2 diabetes mellitus: Code(s): E11.21 - Type 2 diabetes mellitus with diabetic nephropathy Category: Medical (2) CKD stage 3a, GFR 45-59 ml/min: Comment: Renal biopsy 03/02/2024 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 He is not known to have significant proteinuria. His 24 hour urine for creatinine clearance was close to 40 mls/mt. I started him from metformin to Jardiance at the last visit which I plan to increase to 25 mg at next visit. All questions answered. Follow-up appointment given. Orders: Orders Creatinine Today E11.21 - Type 2 diabetes mellitus with diabetic nephropathy Blood Urea Nitrogen Today E11.21 - Type 2 diabetes mellitus with diabetic nephropathy Electrolytes Today E11.21 - Type 2 diabetes mellitus with diabetic nephropathy Creatinine 3 Months E11.21 - Type 2 diabetes mellitus with diabetic nephropathy Electrolytes 3 Months E11.21 - Type 2 diabetes mellitus with diabetic nephropathy Hemoglobin A1c Today E11.21 - Type 2 diabetes mellitus with diabetic nephropathy Blood Urea Nitrogen 3 Months E11.21 - Type 2 diabetes mellitus with diabetic nephropathy Protein Creatinine Ratio, Ur Today E11.21 - Type 2 diabetes mellitus with diabetic nephropathy Medications: Refilled empagliflozin (Jardiance) 10 mg PO DAILY 30 tabs 6RF Coding Level of Care Code Est Pt Level 4 (71420) Diagnoses Diabetic nephropathy associated with type 2 diabetes mellitus E11.21 CKD stage 3a, GFR 45-59 ml/min N18.31 Primary hypertension I10 Hypertension type: primary hypertension
[2024-05-05 09:31] VITALS: BP 130/86; BMI 20.9
== END 2024-05-05 09:53 | disposition home or self-care (01) ==
LOC: HO.HKAS 09:20
PROVIDERS: PCP Internal Medicine; Visit Provider Internal Medicine Nephrology
DX: E11.21 Type 2 diabetes mellitus with diabetic nephropathy (principal); N18.31 Chronic kidney disease, stage 3a; I10 Essential (primary) hypertension
CPT/HCPCS: 99214

== ENCOUNTER 2024-07-29 13:34 | Outpatient (REF) | payer OTHER, SELFPAY ==
[2024-07-29 14:29] LABS: Anion Gap 11 (12-20); Blood Urea Nitrogen 18 mg/dL (9-16); Carbon Dioxide 24 mmol/L (22-29); Chloride 110 mmol/L (96-108); Estimated Glomerular Filt Rate 50; Potassium 5.4 mmol/L (3.3-5.1); Sodium 140 mmol/L (135-145)
== END 2024-07-29 13:35 | disposition home or self-care (01) ==
LOC: HO.LAB 13:34
PROVIDERS: PCP Internal Medicine; Visit Provider Internal Medicine Nephrology
DX: I12.9 Hypertensive chronic kidney disease with stage 1 through stage 4 chronic kidney disease, or unspecified chronic kidney disease (principal); E11.21 Type 2 diabetes mellitus with diabetic nephropathy; N18.31 Chronic kidney disease, stage 3a
CPT/HCPCS: 36415; 80051; 82565; 84520

== ENCOUNTER 2024-08-04 10:44 | Outpatient (AMB) | payer OTHER, SELFPAY ==
--- NOTE | 2024-08-04 11:12 | HO.NEPHOV ---
Vital Signs 08/04/24 11:13 Height 5 ft 9 in Weight 144 lb 8 oz BMI 21.3 BP 130/64 Blood Pressure Location Lt brachial Position Sitting Pulse 72 Pulse Source Pulse Oximeter Pulse Oximetry (%) 98 Oxygen Delivery Method Room Air Intake Visit Reasons: 3mon follow-up w/labs-LVM Intake Note: Patient here for a follow-up. 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 He has immigrated to [facility] from [place] long time ago. He is a known diabetic & has been on metformin. He does not check his blood sugars regularly .He is on multiple antihypertensive medications. He denies any coronary artery disease, carotid stenosis congestive heart failure, CVA, peripheral arterial disease or any history of renal artery stenosis. He denies any family history of ESRD or renal transplantation. He does not have any sensorineural deafness or microscopic hematuria. He denies taking excessive nonsteroidal anti-inflammatories. He does not have any new bone or back pain. He denies epistaxis, recurrent sore throat, skin infections, uveitis, skin rashes, photosensitivity, epistaxis, joint swellings, dysuria or renal calculi. He does not have any hypoglycemias. His recent serum creatinine was 1.48. He had a renal biopsy which showed diabetic renal disease. [facility] Medical History Colon cancer screening Annual physical exam Shoulder abscess Multinodular goiter Graves disease Elbow pain, left Hyperthyroidism Hypertension Surgical History History of knee surgery Family History Mother Myocardial infarct Breast cancer Father Myocardial infarct Social History Housing: House Alcohol intake: current Alcohol intake frequency: does not drink Patient Tobacco Use Status: Current someday Tobacco user Tobacco use type: Cigarette Cigarettes Per Day: 2 Years Smoked: WORKING ON [employer] 1 a day (11/2022) e-Cigarette/Vaping Use: Never Used Second Hand Smoke Exposure: No service: No Current occupational status: employed Current occupational exposures/hazards: No Cognitive needs: No Hearing needs: No Vision needs: No Review of Systems Const All systems reviewed & are unremarkable except as noted in HPI and below Physical Exam Vital Signs: Last Vital Signs Pulse 72 08/04/24 11:13 BP 130/64 08/04/24 11:13 Pulse Ox 98 08/04/24 11:13 Oxygen Delivery Method Room Air 08/04/24 11:13 BMI result Body Mass Index 21.3 Const General: comfortable and no acute distress Orientation/consciousness: patient oriented x3 HEENT Head: Yes normocephalic Mouth: Normal oral and palatal mucosa present Eyes EOM: EOMs intact bilaterally Neck Neck: Yes supple Resp Auscultation: clear to auscultation bilaterally Cardio Jugular venous distension: no JVD Rate: regular rate GI Palpation (GI): Soft to palpation Auscultation: normal bowel sounds General: Yes no CVA tenderness Back/Spine/Pelvis Back: no CVA tenderness Skin General skin exam: no rashes or lesions noted Neuro General: patient oriented x3 and moves all extremities Extrem General: Yes no pedal edema Results Reviewed Nephrology Results: Sodium, (135-145) 140 mmol/L 07/29/24 Potassium, (3.3-5.1) 5.4 mmol/L H 07/29/24 Chloride, (96-108) 110 mmol/L H 07/29/24 Carbon Dioxide, (22-29) 24 mmol/L 07/29/24 BUN, (9-16) 18 mg/dL H 07/29/24 Creatinine, (0.5-1.4) 1.48 mg/dL H 07/29/24 Urine Creatinine 54.33 mg/dL 05/05/24 Protein/Creatinin Ratio TNP 05/05/24 Renal US 12/24/23 Assessment & Plan Assessment & Plan (1) Hypertension: Code(s): I10 - Essential (primary) hypertension Category: Medical Qualifiers: Hypertension type: primary hypertension Qualified Code(s): I10 - Essential (primary) hypertension (2) CKD stage 3a, GFR 45-59 ml/min: Comment: Renal biopsy 03/02/2024 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 He is not known to have significant proteinuria. His 24 hour urine for creatinine clearance was close to 40 mls/mt. I started him from metformin to Jardiance at the last visit which I plan to increase to 25 mg with time. He should be on a low K diet. We may have to cut back on ACEI if his serum K rises All questions answered. Follow-up appointment given. Orders: Orders Creatinine 3 Months E87.5 - Hyperkalemia, I10 - Essential (primary) hypertension, N18.31 - Chronic kidney disease, stage 3a Blood Urea Nitrogen 3 Months E87.5 - Hyperkalemia, I10 - Essential (primary) hypertension, N18.31 - Chronic kidney disease, stage 3a Electrolytes 3 Months E87.5 - Hyperkalemia, I10 - Essential (primary) hypertension, N18.31 - Chronic kidney disease, stage 3a Coding Level of Care Code Est Pt Level 4 (77158) Diagnoses Primary hypertension I10 Hypertension type: primary hypertension CKD stage 3a, GFR 45-59 ml/min N18.31 Hyperkalemia E87.5
[2024-08-04 11:13] VITALS: BP 130/64; PULSE 72; O2SAT 98; BMI 21.3
== END 2024-08-04 11:31 | disposition home or self-care (01) ==
LOC: HO.HKAS 10:44
PROVIDERS: PCP Internal Medicine; Visit Provider Internal Medicine Nephrology
DX: I10 Essential (primary) hypertension (principal); N18.31 Chronic kidney disease, stage 3a; E87.5 Hyperkalemia
CPT/HCPCS: 99214

== ENCOUNTER → 2024-08-04 10:44 | Outpatient (BNVA) | payer OTHER, SELFPAY | PROVIDERS: PCP Internal Medicine; Visit Provider Internal Medicine Nephrology | DX: N18.31 Chronic kidney disease, stage 3a (principal); I10 Essential (primary) hypertension; E87.5 Hyperkalemia | CPT/HCPCS: 99212 ==

== ENCOUNTER 2024-08-20 16:08 | Outpatient (REF) | payer OTHER, SELFPAY ==
[2024-08-20 18:07] LABS: Anion Gap 14 (12-20); Blood Urea Nitrogen 17 mg/dL (9-16); Carbon Dioxide 25 mmol/L (22-29); Chloride 107 mmol/L (96-108); Estimated Glomerular Filt Rate 46; Potassium 5.0 mmol/L (3.3-5.1); Sodium 141 mmol/L (135-145)
== END 2024-08-20 16:09 | disposition home or self-care (01) ==
LOC: HO.LAB 16:08
PROVIDERS: Internal Medicine Nephrology; PCP Internal Medicine; Visit Provider Internal Medicine
DX: E11.21 Type 2 diabetes mellitus with diabetic nephropathy (principal); E11.22 Type 2 diabetes mellitus with diabetic chronic kidney disease; I12.9 Hypertensive chronic kidney disease with stage 1 through stage 4 chronic kidney disease, or unspecified chronic kidney disease; N18.31 Chronic kidney disease, stage 3a
CPT/HCPCS: 36415; 80051; 82565; 84520

== ENCOUNTER 2024-08-26 13:27 | Outpatient (AMB) | payer OTHER, SELFPAY ==
[2024-08-26 14:34] VITALS: BP 138/82; PULSE 69; O2SAT 98; BMI 21.4
--- NOTE | 2024-08-26 14:34 | MHC.PC.OV ---
Vital Signs 08/26/24 14:34 Height 5 ft 9 in Weight 145 lb BMI 21.4 BP 138/82 Blood Pressure Location Lt brachial Position Sitting Pulse 69 Pulse Source Pulse Oximeter Pulse Oximetry (%) 98 Oxygen Delivery Method Room Air Intake Visit Reasons: DM Intake Note: Patient here for a follow up DM Study Coordinator Required: No Accompanied by: Self / Same As Patient Allergies No Known Allergies Allergy (Verified 08/26/24 14:40) Tobacco use date assessed: 02/24/24 Dental Screening Dental Screen Date: 02/24/24 HPI DM HPI Details History of Present Illness The patient is a 53-year-old male presenting for a follow-up visit. He has a history of hypertension, diabetes mellitus, hypothyroidism, hypercholesterolemia, and chronic kidney disease stage 3. The patient was last seen in February 2024, and his colonoscopy was up to date as of 2022. The patient follows up with nephrology and was last seen in July with a diagnosis of chronic kidney disease stage 3. 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 He was started on Jardiance after discontinuing metformin due to kidney issues, with plans to increase the dose to 25 mg. The patient has hypothyroidism with a prior history of Graves' disease diagnosed in 2020. He is currently biochemically euthyroid off levothyroxine, with small bilateral thyroid nodules noted on ultrasound. Endocrinology advised monitoring thyroid function tests and calcium levels annually, with a recommendation to take 1000 units of vitamin D daily. The patient reports anemia with a hemoglobin level of 9.7 and hematocrit of 29.3 as of February. His August blood work showed normal electrolytes and a renal function of 1.59, with a hemoglobin A1c of 7.7. The patient experiences lateral epicondylitis, described as tendon inflammation, and plantar fasciitis, attributed to prolonged standing. He was advised to use a brace for the epicondylitis and gel inserts for the plantar fasciitis. Health Maintenance - Colonoscopy up to date as of 2022 - Annual monitoring of thyroid function tests and calcium levels - Recommendation to take 1000 units of vitamin D daily - Eye exam recommended annually due to diabetes Social History - Smoking: Patient continues to smoke, advised to quit - Alcohol: Patient has stopped drinking alcohol - Occupation: Prolonged standing for 13-14 hours daily, contributing to plantar fasciitis Review of Systems - Musculoskeletal: Reports lateral epicondylitis and plantar fasciitis - Endocrine: Reports hypothyroidism, denies current symptoms due to being euthyroid - Hematologic: Reports anemia Physical Exam Results - Labs: Hemoglobin 9.7, Hematocrit 29.3 (February); Hemoglobin A1c 7.7 (August) - Labs: Normal electrolytes, renal function 1.59 (August) - Imaging: Small bilateral thyroid nodules on ultrasound - Procedure: Renal biopsy showing moderate mesangial diabetic glomerulosclerosis, low-level mesangial IgA deposition Plan The patient's hypertension is managed with lisinopril 10 mg daily, and his blood pressure is monitored regularly. For diabetes management, metformin was discontinued due to kidney issues, and Jardiance was initiated at 10 mg daily, with plans to increase to 25 mg to better control blood glucose levels. The patient is advised to maintain a low potassium diet and avoid NSAIDs to protect renal function. For hypothyroidism, the patient is currently euthyroid and will continue monitoring thyroid function tests. Endocrinology has recommended annual monitoring of calcium levels and the continuation of vitamin D supplementation at 1000 units daily. The patient is encouraged to quit smoking to improve overall health and reduce cardiovascular risk. For musculoskeletal issues, the patient is advised to use a brace for lateral epicondylitis and gel inserts for plantar fasciitis, with consideration for orthopedic referral if symptoms persist. Patient was informed and verbally consented to the use of an ambient scribe for clinic note documentation during this visit. Discussion Notes I discussed with the patient the importance of managing his hypertension with lisinopril and the need to monitor his blood pressure regularly. We reviewed his diabetes management plan, including the discontinuation of metformin and the initiation of Jardiance, with plans to increase the dose to better control his blood glucose levels. I advised him to maintain a low potassium diet and avoid NSAIDs to protect his renal function. We discussed his hypothyroidism management, noting that he is currently euthyroid and will continue monitoring thyroid function tests. Endocrinology's recommendations for annual calcium level monitoring and vitamin D supplementation were also reviewed. I strongly encouraged the patient to quit smoking to improve his overall health and reduce cardiovascular risk. For his musculoskeletal issues, I recommended using a brace for lateral epicondylitis and gel inserts for plantar fasciitis, with the option of an orthopedic referral if symptoms persist. Patient Instructions - Take lisinopril 10 mg daily for blood pressure management. - Increase Jardiance to 25 mg daily as prescribed for diabetes management. - Follow a low potassium diet and avoid NSAIDs to protect kidney function. - Continue monitoring thyroid function tests and take 1000 units of vitamin D daily. - Quit smoking to improve overall health. - Use a brace for lateral epicondylitis and gel inserts for plantar fasciitis. [facility] Medical History Colon cancer screening Annual physical exam Shoulder abscess Multinodular goiter Graves disease Elbow pain, left Hyperthyroidism Hypertension Surgical History History of knee surgery Family History Mother Myocardial infarct Breast cancer Father Myocardial infarct Social History Housing: House Alcohol intake: current Alcohol intake frequency: does not drink Patient Tobacco Use Status: Current someday Tobacco user Tobacco use type: Cigarette Cigarettes Per Day: 2 Years Smoked: WORKING ON [employer] 1 a day (11/2022) Packs per year/per ci.00 e-Cigarette/Vaping Use: Never Used Second Hand Smoke Exposure: No service: No Current occupational status: employed Current occupational exposures/hazards: No Cognitive needs: No Hearing needs: No Vision needs: No Questionnaire Thrive Questionnaire Date Thrive assessed: 02/24/24 LUIZ-7 AMB Questionnaire LUIZ-7 Date LUIZ - 7 assessed: 02/24/24 Source: Developed by Drs. Frank Cota, Bhumi Green, Jabari Mustafa and colleagues, with an educational baylee from [email or web address]. Physical exam (Primary Care) Vital Signs: Last Vital Signs Pulse 69 08/26/24 14:34 BP 138/82 08/26/24 14:34 Pulse Ox 98 08/26/24 14:34 Oxygen Delivery Method Room Air 08/26/24 14:34 BMI result Body Mass Index 21.4 Tobacco/Smoking Status: Tobacco use Status Tobacco use date assessed 02/24/24 08/26/24 14:46 Patient Tobacco Use Status Current someday Tobacco 08/26/24 14:46 Tobacco use type Cigarette 08/26/24 14:46 e-Cigarette/Vaping Use Never Used 08/26/24 14:46 Thrive Assessment: Date of Thrive Assessment Date Thrive assessed 02/24/24 08/26/24 14:46 Const General: alert; No acute distress Eyes Conjunctivae: conjunctivae normal Resp Auscultation: clear to auscultation bilaterally Cardio Rate: regular rate Rhythm: regular rhythm GI Inspection: Yes normal to inspection Extrem General: Yes normal to inspection and No edema Results AMB Hemoglobin A1c AMB Hemoglobin A1c 7.7 % Last Edit by MARQUITA Ordonez on 08/26/24 14:46 Results Reviewed Results Reviewed: Laboratory Last Values Hgb A1c (Clinic) 7.7 % (4.0-6.0) H 08/26/24 14:31 Coding Level of Care Code Est Pt Level 4 (24638) Complex EM visit Add On G2211 Diagnoses Primary hypertension I10 Hypertension type: primary hypertension Hypercholesterolemia E78.00 Type 2 diabetes mellitus with hyperglycemia, without long-term current use of insulin E11.65 Diabetes mellitus oracle forms developer insulin use: without oracle forms developer use 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 Decrease salt intake and exercise on lisinopril 10 mg once a day and metoprolol 50 mg once a day (2) Hypercholesterolemia: Code(s): E78.00 - Pure hypercholesterolemia, unspecified Category: Medical Plan: Avoid fried foods, chicken skin, eggs, butter margarine, pastries and meat. Be it pork or beef they have a lot of cholesterol LDL goal of less than 100 and triglyceride of less than 150 (3) Type 2 diabetes mellitus with hyperglycemia: Comment: Eye and lasik Code(s): E11.65 - Type 2 diabetes mellitus with hyperglycemia Category: Medical Qualifiers: Diabetes mellitus longterm insulin use: without longterm use Qualified Code(s): E11.65 - Type 2 diabetes mellitus with hyperglycemia Plan: Decrease the amount of carbohydrate intake, pasta, bread, rice and potatoes are all sugar and that is aside from all the sweet stuff, remember that fruits are good but they are Sweet also. 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 He has a history of hypertension, diabetes mellitus, hypothyroidism, hypercholesterolemia, and chronic kidney disease stage 3. The patient was last seen in February 2024, and his colonoscopy was up to date as of 2022. The patient follows up with nephrology and was last seen in July with a diagnosis of chronic kidney disease stage 3. 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 He was started on Jardiance after discontinuing metformin due to kidney issues, with plans to increase the dose to 25 mg. The patient has hypothyroidism with a prior history of Graves' disease diagnosed in 2020. He is currently biochemically euthyroid off levothyroxine, with small bilateral thyroid nodules noted on ultrasound. Endocrinology advised monitoring thyroid function tests and calcium levels annually, with a recommendation to take 1000 units of vitamin D daily. The patient reports anemia with a hemoglobin level of 9.7 and hematocrit of 29.3 as of February. His August blood work showed normal electrolytes and a renal function of 1.59, with a hemoglobin A1c of 7.7. The patient experiences lateral epicondylitis, described as tendon inflammation, and plantar fasciitis, attributed to prolonged standing. He was advised to use a brace for the epicondylitis and gel inserts for the plantar fasciitis. Health Maintenance - Colonoscopy up to date as of 2022 - Annual monitoring of thyroid function tests and calcium levels - Recommendation to take 1000 units of vitamin D daily - Eye exam recommended annually due to diabetes Social History - Smoking: Patient continues to smoke, advised to quit - Alcohol: Patient has stopped drinking alcohol - Occupation: Prolonged standing for 13-14 hours daily, contributing to plantar fasciitis Review of Systems - Musculoskeletal: Reports lateral epicondylitis and plantar fasciitis - Endocrine: Reports hypothyroidism, denies current symptoms due to being euthyroid - Hematologic: Reports anemia Physical Exam Results - Labs: Hemoglobin 9.7, Hematocrit 29.3 (February); Hemoglobin A1c 7.7 (August) - Labs: Normal electrolytes, renal function 1.59 (August) - Imaging: Small bilateral thyroid nodules on ultrasound - Procedure: Renal biopsy showing moderate mesangial diabetic glomerulosclerosis, low-level mesangial IgA deposition Plan The patient's hypertension is managed with lisinopril 10 mg daily, and his blood pressure is monitored regularly. For diabetes management, metformin was discontinued due to kidney issues, and Jardiance was initiated at 10 mg daily, with plans to increase to 25 mg to better control blood glucose levels. The patient is advised to maintain a low potassium diet and avoid NSAIDs to protect renal function. For hypothyroidism, the patient is currently euthyroid and will continue monitoring thyroid function tests. Endocrinology has recommended annual monitoring of calcium levels and the continuation of vitamin D supplementation at 1000 units daily. The patient is encouraged to quit smoking to improve overall health and reduce cardiovascular risk. For musculoskeletal issues, the patient is advised to use a brace for lateral epicondylitis and gel inserts for plantar fasciitis, with consideration for orthopedic referral if symptoms persist. Patient was informed and verbally consented to the use of an ambient scribe for clinic note documentation during this visit. Discussion Notes I discussed with the patient the importance of managing his hypertension with lisinopril and the need to monitor his blood pressure regularly. We reviewed his diabetes management plan, including the discontinuation of metformin and the initiation of Jardiance, with plans to increase the dose to better control his blood glucose levels. I advised him to maintain a low potassium diet and avoid NSAIDs to protect his renal function. We discussed his hypothyroidism management, noting that he is currently euthyroid and will continue monitoring thyroid function tests. Endocrinology's recommendations for annual calcium level monitoring and vitamin D supplementation were also reviewed. I strongly encouraged the patient to quit smoking to improve his overall health and reduce cardiovascular risk. For his musculoskeletal issues, I recommended using a brace for lateral epicondylitis and gel inserts for plantar fasciitis, with the option of an orthopedic referral if symptoms persist. Patient Instructions - Take lisinopril 10 mg daily for blood pressure management. - Increase Jardiance to 25 mg daily as prescribed for diabetes management. - Follow a low potassium diet and avoid NSAIDs to protect kidney function. - Continue monitoring thyroid function tests and take 1000 units of vitamin D daily. - Quit smoking to improve overall health. - Use a brace for lateral epicondylitis and gel inserts for plantar fasciitis. Orders: Orders AMB Hemoglobin A1c Today E11.65 - Type 2 diabetes mellitus with hyperglycemia Comprehensive Met. Panel 2 Months D64.9 - Anemia, unspecified Thyroid Stimulating Hormone 2 Months D64.9 - Anemia, unspecified Reticulocyte Count 2 Months D64.9 - Anemia, unspecified Vitamin B12 and Folate 2 Months D64.9 - Anemia, unspecified Ferritin 2 Months D64.9 - Anemia, unspecified Hemoglobin A1c 2 Months E11.65 - Type 2 diabetes mellitus with hyperglycemia Complete Blood Count Auto Diff 2 Months D64.9 - Anemia, unspecified Free T4 (Free Thyroxine) 2 Months D64.9 - Anemia, unspecified IRON PROFILE 2 Months D64.9 - Anemia, unspecified Medications: Changed From empagliflozin (Jardiance) 10 mg PO DAILY 90 tabs 2RF E11.65 - Type 2 diabetes mellitus with hyperglycemia To empagliflozin 25 mg PO DAILY 30 tabs 3RF E11.65 - Type 2 diabetes mellitus with hyperglycemia
== END 2024-08-26 16:38 | disposition home or self-care (01) ==
LOC: HO.HMCH 13:28
PROVIDERS: PCP Internal Medicine; Visit Provider Internal Medicine
DX: I12.9 Hypertensive chronic kidney disease with stage 1 through stage 4 chronic kidney disease, or unspecified chronic kidney disease (principal); E11.65 Type 2 diabetes mellitus with hyperglycemia; N18.31 Chronic kidney disease, stage 3a; E78.00 Pure hypercholesterolemia, unspecified; E06.3 Autoimmune thyroiditis; Z72.0 Tobacco use; M72.2 Plantar fascial fibromatosis

== ENCOUNTER → 2024-08-26 13:27 | Outpatient (BNVA) | payer OTHER, SELFPAY | PROVIDERS: PCP Internal Medicine; Visit Provider Internal Medicine | DX: E11.22 Type 2 diabetes mellitus with diabetic chronic kidney disease (principal); I12.9 Hypertensive chronic kidney disease with stage 1 through stage 4 chronic kidney disease, or unspecified chronic kidney disease; E03.9 Hypothyroidism, unspecified; E78.00 Pure hypercholesterolemia, unspecified; E11.65 Type 2 diabetes mellitus with hyperglycemia; E06.3 Autoimmune thyroiditis; N18.31 Chronic kidney disease, stage 3a; M77.10 Lateral epicondylitis, unspecified elbow; M72.2 Plantar fascial fibromatosis; F17.210 Nicotine dependence, cigarettes, uncomplicated | CPT/HCPCS: 83036; 99212 ==

== ENCOUNTER 2024-10-30 13:49 | Outpatient (REF) | payer OTHER, SELFPAY ==
--- OUTSIDE RECORDS SUMMARY | 2022-01-19 21:04 | XMS_ITS | Encounter Summary ---
Author Organization [facility] Address [address] [place] [address] Phone Care Team Providers Care Inspector Plumbing Name Role Phone Hien Bruner MD Primary Care Provider [phone]- [phone] Encounter Details Date Type Department Care Team (Late st Contact Info) Description 01/19/2022 8:04 PM EST Hospital Encounter [facility] OUTSIDE [address] [place] [phone] Rosemarie Rubio MD [address] [place] [phone] [email or web address] Social History Tobacco Use Types Packs/Day Years [...] on filedocumented in this encounter Care Teams Inspector Plumbing Relationship Specialty Start Date End Date Hien Bruner MD [address] [place] [phone] [email or web address] PCP - General Internal Medicine 01/18/22 02/26/22 documented as of this encounter Additional Source Comments The information contained in this document represents components of the legal health record. It is not the complete legal health record.[facility]
--- OUTSIDE RECORDS SUMMARY | 2022-01-19 21:10 | XMS_ITS | Encounter Summary ---
Author Organization [facility] Address [address] [place] [address] Phone Care Team Providers Care Adjuster Arbitrator Name Role Phone Hien Bruner MD Primary Care Provider [phone]- [phone] Encounter Details Date Type Department Care Team (Late st Contact Info) Description 01/19/2022 8:10 PM [facility] Hospital Encounter [facility] OUTSIDE [address] [place] [address] Emily Johnson MD [address] [place] [address] [email or web address] Social History Tobacco Use Types Packs/Day Years [...] EXAMS: MRI brain with and without contrast ([id number] - 01/19/2022) Clinical concern for cavernous sinus thrombosis. No definite evidence of a cavernous sinus thrombosis. Thickening and edema of the left superior rectus complex without clear visualization of the left superior ophthalmic vein. COMMUNICATED TO: Emily Johnson ([facility]) at 01/19/2022 8:30:00 PM This represents only a limited, preliminary interpretation of the study to address specific clinical questions and to assess for urgent findings. The final report, when available, supersedes this report. ATTESTATION: LAURA Aldana Auto Signer as teaching physician, have reviewed the images for this case and if necessary edited the report originally created by Dr. Frank Martinez. Procedure Note Switch Operator, Dictation - 01/20/2022 PRELIMINARY INTERPRETATION REGARDING EXAMS: MRI brain with and without contrast ([id number] -01/19/2022) Clinical concern for cavernous sinus thrombosis. No definite evidence of a cavernous sinus thrombosis. Thickening and edemaof the left superior rectus complex without clear visualization of theleft superior ophthalmic vein. COMMUNICATED TO: Emily Johnson ([facility]) at 01/19/2022 8:30:00 PM This represents only [...] on filedocumented in this encounter Care Teams Adjuster Arbitrator Relationship Specialty Start Date End Date Hien Bruner MD [address] [place] [address] [email or web address] PCP - General Internal Medicine 01/18/22 02/26/22 documented as of this encounter Additional Source Comments The information contained in this document represents components of the legal health record. It is not the complete legal health record.[facility]
--- OUTSIDE RECORDS SUMMARY | 2024-10-30 13:57 | XMS_ITS | Encounter Summary ---
Author Organization [facility] Address [address] [place] [address] Phone Care Team Providers Care Metal Work Duct Installer Name Role Phone Hien Bruner MD Primary Care Provider [phone] Pcp, Unknown Primary Care Provider [facility] Zenobia Dougherty MD Primary Care Provider Encounter Details Date Type Department Care Team (Late st Contact Info) Description 01/19/2022 Procedure Pass [facility] - [facility], [facility] [address] [place] [address] Social History Tobacco Use Types Packs/Day Years Used Date Smoking Tobacco: Never Assessed Sex and Gender Information Value Date Recorded Sex Assigned at Not on file Legal Sex Male 12:26 PM EDT Gender Identity Not on file Sexual Orientation Not on file documented as of this encounter Plan of Treatment Not on file documented as of this encounter Visit Diagnoses Not on filedocumented in this encounter Care Teams Metal Work Duct Installer Relationship Specialty Start Date End Date Hien Bruner MD [address] [place] [id number] PCP - General Internal Medicine 01/18/22 02/26/22 Pcp, Unknown PCP - General 02/27/22 04/17/22 Zenobia Dougherty MD [address] [place] [address] PCP - General Internal Medicine 04/18/22 documented as of this encounter Additional Source Comments The information contained in this document represents components of the legal health record. It is not the complete legal health record.[facility]
--- OUTSIDE RECORDS SUMMARY | 2024-10-30 13:57 | XMS_ITS | Encounter Summary ---
Author Organization [facility] Address [address] [place] [address] Phone Care Team Providers Care Chalk Tester Name Role Phone Hien Bruner MD Primary Care Provider [phone] Pcp, Unknown [facility] Care [facility] Zenobia Dougherty MD Primary Care Provider [phone] Encounter Details Date Type Department Care Team (Late st Contact Info) Description 01/19/2022 Procedure Pass [facility] - MRI, [facility] [address] [place] [address] Social History Tobacco Use Types Packs/Day Years [...] on filedocumented in this encounter Care Teams Chalk Tester Relationship Specialty Start Date End Date Hien Bruner MD [address] [place] [id number] PCP - General Internal Medicine 01/18/22 02/26/22 Pcp, Unknown PCP - General 02/27/22 04/17/22 Zenobia Dougherty MD [address] [place] [address] PCP - General Internal Medicine 04/18/22 documented as of this encounter Additional Source Comments The information contained in this document represents components of the legal health record. It is not the complete legal health record.[facility]
--- OUTSIDE RECORDS SUMMARY | 2024-10-30 13:57 | XMS_ITS | Clinical Summary ---
Author Organization [facility] Address [address] [place] [phone] Phone Care Team Providers Care Choir Accompanist Name Role Phone Zenobia Dougherty MD Primary Care Provider Allergies No known active allergies Medications metFORMIN (GLUCOPHAGE) 500 MG tablet Take 500 mg by mouth 2 (two) times a day with meals. 11/14/2021 Active lisinopril (PRINIVIL,ZESTRI L) 5 MG tablet 01/15/2022 Acti ve cyanocobalamin, vitamin B-12, 1000 MCG tablet TAKE 1 TABLET BY MOUTH EVERY DAY *OTC N/C* 11/19/2021 Active amLODIPine (NORVASC) 10 MG tablet 01/15/2022 Active levothyroxine (SYNTHROID,LEVOT HROID) 25 MCG tablet Take 25 mcg by mouth every morning. Active Social History Tobacco Use Types Packs/Day Years [...] on file Sexual Orientation Not on file Plan of Treatment Health Maintenance Due Date Last Done Comments Adult Td,Tdap Booster 1972 CREATININE LEVEL 1972 LIPID PANEL 1972 POTASSIUM LEVEL 1972 TSH LEVEL 1972 DEPRESSION SCREENING 1984 SMOKING Hx and SMOKELESS TOB ACCO SCREENING 1985 HEPATITIS C SCREENING 1990 HIV ONE-TIME SCREENING (18-6 5 YEARS) 1990 COLOGUARD 2017 COLONOSCOPY 2017 COLORECTAL CANCER SCREENING 2017 FIT TEST 2017 FOBT 2017 SIGMOIDOSCOPY 2017 VIRTUAL COLONOSCOPY 2017 PNEUMOCOCCAL VACCINES (50+ y ears) (1 of 1 - PCV) 2022 ZOSTER VACCINES (1 of 2) 2022 INFLUENZA VACCINE (#1) 2024 COVID-19 VACCINE (1 - 2023-2 5 season) 2024 HEPATITIS A VACCINES Aged Out No long er eligible based on patient's age to complete this topic HIB VACCINES Aged Out No longer eligi ble based on patient's age to complete this topic MENINGOCOCCAL VACCINES (ACWY) Aged Out No longer eligible based on patient's age to complete this topic MENINGOCOCCAL VACCINES (B) Aged Out N o longer eligible based on patient's age to complete this topic Medical Devices Not on file Insurance [facility] SAFETY [facility] [place] [address] Value Payment [employer] FULL Value Payment [employer]HE[employer] LIMITED [employer] NET FULL Value Payment [employer] NET FULL Value Payment SystemsHEALTH LIMITED HEALTH SAFETY NET FULL [facility] FULL Member Subscriber Plan / Payer (Ef fective 2022-Present) Name:Bradley Salazar Relation to Subscriber:Self Name:Bradley Salazar Payer ID:Not on file Group ID:Not on file Type:Medicaid Address: [place] [id number] Care Teams Choir Accompanist Relationship Specialty Start Date End Date Po, Zenobia Cohen MD [address] [place] [address] Drive [address] [place] [id number] PCP - General Internal Medicine 04/18/22 Additional Source Comments The information contained in this document represents components of the legal health record. It is not the complete legal health record.[facility]
--- OUTSIDE RECORDS SUMMARY | 2024-10-30 13:57 | XMS_ITS | Encounter Summary ---
Author Organization [facility] Address [address] [place] [address] Phone Care Team Providers Care Log Chipper Operator Name Role Phone Hien Bruenr MD Primary Care Provider [phone] Pcp, Unknown Primary Care Provider [facility] Zenobia Dougherty MD Primary Care Provider Encounter Details Date Type Department Care Team (Late st Contact Info) Description 01/18/2022 Procedure Pass [facility] [address] [place] [address] Social History Tobacco Use Types Packs/Day Years [...] on filedocumented in this encounter Care Teams Log Chipper Operator Relationship Specialty Start Date End Date Hien Bruner MD [address] [place] [address] PCP - General Internal Medicine 01/18/22 02/26/22 Pcp, Unknown PCP - General 02/27/22 04/17/22 Zenobia Dougherty MD [address] [place] [address] PCP - General Internal Medicine 04/18/22 documented as of this encounter Additional Source Comments The information contained in this document represents components of the legal health record. It is not the complete legal health record.[facility]
[2024-10-30 14:05] LABS: MANUAL DIFF FLAG NO
[2024-10-30 14:50] LABS: Hematocrit 44.3 % (42.0-52.0); Hemoglobin 14.4 g/dl (14.0-18.0); Imm Gran Abs Auto 0.05 X10*3/uL (0.00-0.03); Imm Gran Pct Auto 0.7 % (0.0-0.4); Lymphocytes Absolute Auto 1.3 X10*3/uL (1.2-4.9); Mean Corpuscular HGB Conc 32.5 g/dl (31.0-36.0); Mean Corpuscular Hemoglobin 28.2 pg (27.0-33.0); Mean Corpuscular Volume 86.9 fL (80.0-98.0); NRBC Abs Auto 0.000 X10*3/uL (0.0-0.012); NRBC Pct Auto 0.0 /100WBC (0.0-0.2); Platelet Count 221 X10*3/uL (160-400); Red Blood Count 5.10 X10*6/uL (4.60-5.80); Reticulocytes Absolute 0.073 X10*6/uL (0.026-0.095); White Blood Count 7.6 X10*3/uL (4.8-10.8)
[2024-10-30 14:59] LABS: Hemoglobin A1C 234.8476 umol/L; Total Hemoglobin (HGBA1C) 3752.4094 umol/L
[2024-10-30 15:18] LABS: Alanine Aminotransferase 30 U/L (0-40); Albumin Level 4.9 g/dL (3.5-5.0); Alkaline Phosphatase 101 U/L (39-117); Anion Gap 12 (12-20); Aspartate Amino Transferase 54 U/L (5-37); Blood Urea Nitrogen 17 mg/dL (9-16); Calcium 9.6 mg/dL (8.4-10.2); Carbon Dioxide 25 mmol/L (22-29); Chloride 108 mmol/L (96-108); Cholesterol 195 mg/dL (<200); Estimated Glomerular Filt Rate 48; Ferritin 34 ng/mL (20-250); Free T4 (Free Thyroxine) 1.31 ng/dL (0.71-1.85); HDL Cholesterol 40 mg/dL (>40); Iron 62 mcg/dL (45-160); Percent Iron Saturation 21 % (15-50); Potassium 4.8 mmol/L (3.3-5.1); Sodium 140 mmol/L (135-145); Total Iron Binding Capacity 297 mcg/dL (228-428); Total Protein 8.0 g/dL (6.5-8.0); Triglycerides 279 mg/dL (<150); Unsaturated Iron Binding 235 ug/dL
[2024-10-30 15:24] LABS: Thyroid Stimulating Hormone 0.24 uIU/mL (0.32-4.0)
[2024-10-30 15:33] LABS: Folate 8.3 ng/mL (> or = 4.0); Vitamin B12 207 pg/mL (200-900)
== END 2024-10-30 13:50 | disposition home or self-care (01) ==
LOC: HO.LAB 13:49
PROVIDERS: Absent Provider Internal Medicine Nephrology; PCP Internal Medicine; Visit Provider Internal Medicine
DX: E11.22 Type 2 diabetes mellitus with diabetic chronic kidney disease (principal); I12.9 Hypertensive chronic kidney disease with stage 1 through stage 4 chronic kidney disease, or unspecified chronic kidney disease; N18.31 Chronic kidney disease, stage 3a; E87.5 Hyperkalemia; E11.65 Type 2 diabetes mellitus with hyperglycemia; E78.00 Pure hypercholesterolemia, unspecified; D64.9 Anemia, unspecified
CPT/HCPCS: 36415; 80053; 80061; 82570; 82607; 82728; 82746; 83036; 83540; 84439; 84443; 85025; 85045

== ENCOUNTER 2024-11-03 09:44 | Outpatient (AMB) | payer OTHER, SELFPAY ==
--- OUTSIDE RECORDS SUMMARY | 2022-01-19 21:04 | XMS_ITS | Encounter Summary ---
Author Organization [facility] Address [address] [place] [phone] Phone Care Team Providers Care Master Hearth Technician Name Role Phone Hien Bruner MD Primary Care Provider [phone]- [phone] Encounter Details Date Type Department Care Team (Late st Contact Info) Description 01/19/2022 8:04 PM EST Hospital Encounter [facility] OUTSIDE [address] [place] [address] Rosemarie Rubio MD [address] [place] [address] [email or web address] Social History Tobacco Use Types Packs/Day [...] on filedocumented in this encounter Care Teams Master Hearth Technician Relationship Specialty Start Date End Date Hien Bruner MD [address] [place] [phone] [email or web address] PCP - General Internal Medicine 01/18/22 02/26/22 documented as of this encounter Additional Source Comments The information contained in this document represents components of the legal health record. It is not the complete legal health record.[facility]
--- OUTSIDE RECORDS SUMMARY | 2022-01-19 21:10 | XMS_ITS | Encounter Summary ---
Author Organization [facility] Address [address] [place] [address] Phone Care Team Providers Care Patternmaker Hand Name Role Phone Hien Bruner MD Primary Care Provider [phone]- [phone] Encounter Details Date Type Department Care Team (Late st Contact Info) Description 01/19/2022 8:10 PM [facility] Hospital Encounter [facility] [place] OUTSIDE [address] [place] [address] Emily Johnson MD [address] [place] [phone] [email or web address] Social History Tobacco Use Types Packs/Day Years Used Date Smoking Tobacco: Never Assessed Education Answer Date Recorded Are you interested in more education? Not on btety e 06/09/2022 Are you concerned about learning? [...] EXAMS: MRI brain with and without contrast ([id number] - 01/19/2022) Clinical concern for cavernous sinus thrombosis. No definite evidence of a cavernous sinus thrombosis. Thickening and edema of the left superior rectus complex without clear visualization of the left superior ophthalmic vein. COMMUNICATED TO: Emily Johnson ([facility]) at 01/19/2022 8:30:00 PM This represents only a limited, preliminary interpretation of the study to address specific clinical questions and to assess for urgent findings. The final report, when available, supersedes this report. ATTESTATION: LAURA Aldana Auto Signer as teaching physician, have reviewed the images for this case and if necessary edited the report originally created by Dr. Frank Martinez. Procedure Note Advanced Manufacturing Consultant, Dictation - 01/20/2022 PRELIMINARY INTERPRETATION REGARDING EXAMS: MRI brain with and without contrast ([id number] -01/19/2022) Clinical concern for cavernous sinus thrombosis. No definite evidence of a cavernous sinus thrombosis. Thickening and edemaof the left superior rectus complex without clear visualization of theleft superior ophthalmic vein. COMMUNICATED TO: Emily Johnson ([facility]) at 01/19/2022 8:30:00 PM This represents only [...] on filedocumented in this encounter Care Teams Patternmaker Hand Relationship Specialty Start Date End Date Hien Bruner MD [address] [place] [phone] [email or web address] PCP - General Internal Medicine 01/18/22 02/26/22 documented as of this encounter Additional Source Comments The information contained in this document represents components of the legal health record. It is not the complete legal health record.[facility]
--- NOTE | 2024-11-03 09:51 | HO.NEPHOV_ITS ---
Vital Signs 11/03/24 09:52 Height 5 ft 9 in Weight 144 lb 4 oz BMI 21.3 BP 150/90 H Blood Pressure Location Rt brachial Position Sitting Intake Visit Reasons: 3 mnts f/u-LVM Health Assessment And Treatment Teacher Required: No Accompanied by: Self / Same As Patient Allergies No Known Allergies Allergy (Verified 11/03/24 09:52) HPI Comments Details: Bradley was seen in follow up for CKD and hypertension. He has immigrated to [facility] from [facility] long time ago. He is a known diabetic & has been on metformin. He does not check his blood sugars regularly .He is on multiple antihypertensive medications. He denies any coronary artery disease, carotid stenosis congestive heart failure, CVA, peripheral arterial disease or any history of renal artery stenosis. He denies any family history of ESRD or renal transplantation. He does not have any sensorineural deafness or microscopic hematuria. He denies taking excessive nonsteroidal anti-inflammatories. He does not have any new bone or back pain. He denies epistaxis, recurrent sore throat, skin infections, uveitis, skin rashes, photosensitivity, epistaxis, joint swellings, dysuria or renal calculi. He does not have any hypoglycemias. His recent serum creatinine was 1.48. He had a renal biopsy which showed diabetic renal disease. [facility] Medical History Colon cancer screening Annual physical exam Shoulder abscess Multinodular goiter Graves disease Elbow pain, left Hyperthyroidism Hypertension Surgical History History of knee surgery Family History Mother Myocardial infarct Breast cancer Father Myocardial infarct Social History Housing: House Alcohol intake: current Alcohol intake frequency: does not drink Patient Tobacco Use Status: Current someday Tobacco user Tobacco use type: Cigarette Cigarettes Per Day: 2 Years Smoked: WORKING ON [employer] 1 a day (11/2022) e-Cigarette/Vaping Use: Never Used Second Hand Smoke Exposure: No service: No Current occupational status: employed Current occupational exposures/hazards: No Cognitive needs: No Hearing needs: No Vision needs: No Review of Systems Const All systems reviewed & are unremarkable except as noted in HPI and below Physical Exam Vital Signs: Last Vital Signs BP 150/90 H 11/03/24 09:52 BMI result Body Mass Index 21.3 Const General: comfortable and no acute distress Orientation/consciousness: patient oriented x3 HEENT Head: Yes normocephalic Mouth: Normal oral and palatal mucosa present Eyes EOM: EOMs intact bilaterally Neck Neck: Yes supple Resp Auscultation: clear to auscultation bilaterally Cardio Jugular venous distension: no JVD Rate: regular rate GI Palpation (GI): Soft to palpation Auscultation: normal bowel sounds General: Yes no CVA tenderness Back/Spine/Pelvis Back: no CVA tenderness Skin General skin exam: no rashes or lesions noted Neuro General: patient oriented x3 and moves all extremities Extrem General: Yes no pedal edema Results Reviewed Nephrology Results: Hgb, (14.0-18.0) 14.4 g/dl Δ 10/30/24 WBC, (4.8-10.8) 7.6 X10*3/uL 10/30/24 Plt Count, (160-400) 221 X10*3/uL 10/30/24 Sodium, (135-145) 140 mmol/L 10/30/24 Potassium, (3.3-5.1) 4.8 mmol/L 10/30/24 Chloride, (96-108) 108 mmol/L 10/30/24 Carbon Dioxide, (22-29) 25 mmol/L 10/30/24 BUN, (9-16) 17 mg/dL H 10/30/24 Creatinine, (0.5-1.4) 1.55 mg/dL H 10/30/24 Calcium, (8.4-10.2) 9.6 mg/dL 10/30/24 Urine Creatinine 87.75 mg/dL 10/30/24 Protein/Creatinin Ratio TNP 05/05/24 Renal US 12/24/23 Assessment & Plan Assessment & Plan (1) Hypertension: Code(s): I10 - Essential (primary) hypertension Category: Medical Qualifiers: Hypertension type: primary hypertension Qualified Code(s): I10 - Essential (primary) hypertension (2) CKD stage 3a, GFR 45-59 ml/min: Comment: Renal biopsy 03/02/2024 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 He is not known to have significant proteinuria. His 24 hour urine for creatinine clearance was close to 40 mls/mt. He is on Jardiance 25 mg with time. He should be on a low K diet. We may have to cut back on ACEI if his serum K rises All questions answered. Follow-up appointment given. Medications: Refilled empagliflozin 25 mg PO DAILY 90 tabs 4RF E11.65 - Type 2 diabetes mellitus with hyperglycemia Coding Level of Care Code Est Pt Level 4 (32638) Diagnoses Primary hypertension I10 Hypertension type: primary hypertension CKD stage 3a, GFR 45-59 ml/min N18.31 Diabetic nephropathy associated with type 2 diabetes mellitus E11.21
[2024-11-03 09:52] VITALS: BP 150/90; BMI 21.3
--- OUTSIDE RECORDS SUMMARY | 2024-11-03 11:39 | XMS_ITS | Clinical Summary ---
Author Organization [facility] Address [address] [place] [address] Phone Care Team Providers Care Differential Tester Name Role Phone Zenobia Dougherty MD Primary Care Provider [phone] Allergies No known active allergies Medications metFORMIN [...] topic Medical Devices Not on file Insurance [facility] [facility] SAFETY [facility] [place] [address] [employer] FULL [employer] NET FULL [employer] NET FULL [employer] HEALTH [employer] NET FULL [facility] [facility] FULL Member Subscriber Plan / Payer (Ef fective 2022-Present) Name:Bradley Salazar Relation to Subscriber:Self Name:Bradley Salazar Payer ID:Not on file Group ID:Not on file Type:Medicaid Address: [place] [id number] Care Teams Differential Tester Relationship Specialty Start Date End Date Po, Zenobia Cohen MD [address] [place] [address] Drive [address] [place] [id number] PCP - General Internal Medicine 04/18/22 Additional Source Comments The information contained in this document represents components of the legal health record. It is not the complete legal health record.[facility]
--- OUTSIDE RECORDS SUMMARY | 2024-11-03 11:40 | XMS_ITS | Encounter Summary ---
Author Organization [facility] Address [address] [place] [address] Phone Care Team Providers Care Stand Up Forklift Operator Name Role Phone Hien Bruner MD Primary Care Provider [phone] Pcp, Unknown [facility] Zen[facility] Dougherty MD Primary Care Provider Encounter Details Date Type Department Care Team (Late st Contact Info) Description 01/18/2022 Procedure Pass [facility] - [facility] Main [place] [address] [place] [address] Social History Tobacco Use Types Packs/Day Years [...] on filedocumented in this encounter Care Teams Stand Up Forklift Operator Relationship Specialty Start Date End Date Hien Bruner MD [address] [place] [address] PCP - General Internal Medicine 01/18/22 02/26/22 Pcp, Unknown PCP - General 02/27/22 04/17/22 Zenobia Dougherty MD [address] [place] [address] PCP - General Internal Medicine 04/18/22 documented as of this encounter Additional Source Comments The information contained in this document represents components of the legal health record. It is not the complete legal health record.[facility]
--- OUTSIDE RECORDS SUMMARY | 2024-11-03 11:40 | XMS_ITS | Encounter Summary ---
Author Organization [facility] Address [address] [place] [address] Phone Care Team Providers Care Clod Puller Name Role Phone Hien Bruner MD Primary Care Provider [phone] Pcp, Unknown [facility] Zen[facility] Doug[facility] MD Primary Care Provider Encounter Details Date Type Department Care Team (Late st Contact Info) Description 01/19/2022 Procedure Pass [facility] - MRI, [facility] [address] [place] [address] Social History Tobacco Use Types Packs/Day Years [...] on filedocumented in this encounter Care Teams Clod Puller Relationship Specialty Start Date End Date Hien Bruner MD [address] [place] [address] PCP - General Internal Medicine 01/18/22 02/26/22 Pcp, Unknown PCP - General 02/27/22 04/17/22 Zenobia Dougherty MD [address] [place] [address] PCP - General Internal Medicine 04/18/22 documented as of this encounter Additional Source Comments The information contained in this document represents components of the legal health record. It is not the complete legal health record.[facility]
--- OUTSIDE RECORDS SUMMARY | 2024-11-03 11:40 | XMS_ITS | Encounter Summary ---
Author Organization [facility] Address [address] [place] [address] Phone Care Team Providers Care Wallpaper Hanger Name Role Phone Hien Bruner MD Primary Care Provider [phone] Pcp, Unknown [facility] Zenobia Dougherty MD Primary Care Provider [phone] Encounter Details Date Type Department Care Team (Late st Contact Info) Description 01/19/2022 Procedure Pass [facility] - MRI, [facility] [address] [place] [address] Social History Tobacco Use Types Packs/Day Years [...] on filedocumented in this encounter Care Teams Wallpaper Hanger Relationship Specialty Start Date End Date Hien Bruner MD [address] [place] [address] PCP - General Internal Medicine 01/18/22 02/26/22 Pcp, Unknown PCP - General 02/27/22 04/17/22 Zenobia Dougherty MD [address] [place] [address] PCP - General Internal Medicine 04/18/22 documented as of this encounter Additional Source Comments The information contained in this document represents components of the legal health record. It is not the complete legal health record.[facility]
== END 2024-11-03 10:14 | disposition home or self-care (01) ==
LOC: HO.HKAS 09:44
PROVIDERS: PCP Internal Medicine; Visit Provider Internal Medicine Nephrology
DX: I10 Essential (primary) hypertension (principal); N18.31 Chronic kidney disease, stage 3a; E11.21 Type 2 diabetes mellitus with diabetic nephropathy
CPT/HCPCS: 99214

== ENCOUNTER → 2024-11-03 09:44 | Outpatient (BNVA) | payer OTHER, SELFPAY | PROVIDERS: PCP Internal Medicine; Visit Provider Internal Medicine Nephrology | DX: E11.22 Type 2 diabetes mellitus with diabetic chronic kidney disease (principal); I12.9 Hypertensive chronic kidney disease with stage 1 through stage 4 chronic kidney disease, or unspecified chronic kidney disease; N18.31 Chronic kidney disease, stage 3a; E11.21 Type 2 diabetes mellitus with diabetic nephropathy | CPT/HCPCS: 99212 ==

== ENCOUNTER 2024-12-08 09:29 | Outpatient (AMB) | payer OTHER, SELFPAY ==
--- OUTSIDE RECORDS SUMMARY | 2022-01-19 21:04 | XMS_ITS | Encounter Summary ---
Author Organization [facility] Address [address] [place] [address] Phone Care Team Providers Care Cooking Appliance Repair Technician Name Role Phone Hien Bruner MD Primary Care Provider +1- [phone] Encounter Details Date Type Department Care Team (Late st Contact Info) Description 01/19/2022 8:04 PM EST Hospital Encounter [facility] [address] [place] [address] Rosemarie Rubio MD [address] [place] [address] [email or web address] Social History Tobacco Use Types Packs/Day Years [...] on filedocumented in this encounter Care Teams Cooking Appliance Repair Technician Relationship Specialty Start Date End Date Hien Bruner MD [address] [place] [phone] [email or web address] PCP - General Internal Medicine 01/18/22 02/26/22 documented as of this encounter Additional Source Comments The information contained in this document represents components of the legal health record. It is not the complete legal health record.[facility]
--- OUTSIDE RECORDS SUMMARY | 2022-01-19 21:10 | XMS_ITS | Encounter Summary ---
Author Organization [facility] Address [address] [place] [address] Phone Care Team Providers Care Building Economist Name Role Phone Hien Bruner MD Primary Care Provider [phone]- [phone] Encounter Details Date Type Department Care Team (Late st Contact Info) Description 01/19/2022 8:10 PM [facility] Hospital Encounter [facility] [place] [address] [place] [address] Emily Johnson MD [address] [place] [phone] [email or web address] Social History Tobacco Use Types Packs/Day [...] EXAMS: MRI brain with and without contrast ([id number] - 01/19/2022) Clinical concern for cavernous sinus thrombosis. No definite evidence of a cavernous sinus thrombosis. Thickening and edema of the left superior rectus complex without clear visualization of the left superior ophthalmic vein. COMMUNICATED TO: Emily Johnson ([facility]) at 01/19/2022 8:30:00 PM This represents only a limited, preliminary interpretation of the study to address specific clinical questions and to assess for urgent findings. The final report, when available, supersedes this report. ATTESTATION: LAURA Aldana Auto Signer as teaching physician, have reviewed the images for this case and if necessary edited the report originally created by Dr. Frank Martinez. Procedure Note Car Carder, Dictation - 01/20/2022 PRELIMINARY INTERPRETATION REGARDING EXAMS: MRI brain with and without contrast ([id number] -01/19/2022) Clinical concern for cavernous sinus thrombosis. No definite evidence of a cavernous sinus thrombosis. Thickening and edemaof the left superior rectus complex without clear visualization of theleft superior ophthalmic vein. COMMUNICATED TO: Emily Johnson ([facility]) at 01/19/2022 8:30:00 PM This represents [...] on filedocumented in this encounter Care Teams Building Economist Relationship Specialty Start Date End Date Hien Bruner MD [address] [place] [address] [email or web address] PCP - General Internal Medicine 01/18/22 02/26/22 documented as of this encounter Additional Source Comments The information contained in this document represents components of the legal health record. It is not the complete legal health record.[facility]
--- NOTE | 2024-12-08 09:31 | HO.NEPHOV_ITS ---
Vital Signs 12/08/24 09:32 Height 5 ft 9 in Weight 149 lb BMI 22.0 BP 154/80 H Blood Pressure Location Lt brachial Position Sitting Pulse 69 Pulse Source Pulse Oximeter Pulse Oximetry (%) 97 Oxygen Delivery Method Room Air Intake Visit Reasons: 1mnth fu-confirmed Driller'S Offsider Required: No Accompanied by: Self / Same As Patient Allergies No Known Allergies Allergy (Verified 12/08/24 09:32) HPI Comments Details: Bradley was seen in follow up for CKD and hypertension. He has immigrated to [facility] from [place] long time ago. He is a known diabetic & has been on metformin. He does not check his blood sugars regularly .He is on multiple antihypertensive medications. He denies any coronary artery disease, carotid stenosis congestive heart failure, CVA, peripheral arterial disease or any history of renal artery stenosis. He denies any family history of ESRD or renal transplantation. He does not have any sensorineural deafness or microscopic hematuria. He denies taking excessive nonsteroidal anti-inflammatories. He does not have any new bone or back pain. He denies epistaxis, recurrent sore throat, skin infections, uveitis, skin rashes, photosensitivity, epistaxis, joint swellings, dysuria or renal calculi. He does not have any hypoglycemias. His recent serum creatinine was 1.55. He had a renal biopsy which showed diabetic renal disease. [facility] Medical History Colon cancer screening Annual physical exam Shoulder abscess Multinodular goiter Graves disease Elbow pain, left Hyperthyroidism Hypertension Surgical History History of knee surgery Family History Mother Myocardial infarct Breast cancer Father Myocardial infarct Social History Housing: House Alcohol intake: current Alcohol intake frequency: does not drink Patient Tobacco Use Status: Current someday Tobacco user Tobacco use type: Cigarette Cigarettes Per Day: 2 Years Smoked: WORKING ON [employer] 1 a day (11/2022) e-Cigarette/Vaping Use: Never Used Second Hand Smoke Exposure: No service: No Current occupational status: employed Current occupational exposures/hazards: No Cognitive needs: No Hearing needs: No Vision needs: No Review of Systems Const All systems reviewed & are unremarkable except as noted in HPI and below Physical Exam Vital Signs: Last Vital Signs Pulse 69 12/08/24 09:32 BP 154/80 H 12/08/24 09:32 Pulse Ox 97 12/08/24 09:32 Oxygen Delivery Method Room Air 12/08/24 09:32 BMI result Body Mass Index 22.0 Const General: comfortable and no acute distress Orientation/consciousness: patient oriented x3 HEENT Head: Yes normocephalic Mouth: Normal oral and palatal mucosa present Eyes EOM: EOMs intact bilaterally Neck Neck: Yes supple Resp Auscultation: clear to auscultation bilaterally Cardio Jugular venous distension: no JVD Rate: regular rate GI Palpation (GI): Soft to palpation Auscultation: normal bowel sounds General: Yes no CVA tenderness Back/Spine/Pelvis Back: no CVA tenderness Skin General skin exam: no rashes or lesions noted Neuro General: patient oriented x3 and moves all extremities Extrem General: Yes no pedal edema Results Reviewed Nephrology Results: Hgb, (14.0-18.0) 14.4 g/dl Δ 10/30/24 WBC, (4.8-10.8) 7.6 X10*3/uL 10/30/24 Plt Count, (160-400) 221 X10*3/uL 10/30/24 Sodium, (135-145) 140 mmol/L 10/30/24 Potassium, (3.3-5.1) 4.8 mmol/L 10/30/24 Chloride, (96-108) 108 mmol/L 10/30/24 Carbon Dioxide, (22-29) 25 mmol/L 10/30/24 BUN, (9-16) 17 mg/dL H 10/30/24 Creatinine, (0.5-1.4) 1.55 mg/dL H 10/30/24 Calcium, (8.4-10.2) 9.6 mg/dL 10/30/24 Urine Creatinine 87.75 mg/dL 10/30/24 Renal US 12/24/23 Assessment & Plan Assessment & Plan (1) Hypertension: Code(s): I10 - Essential (primary) hypertension Category: Medical Qualifiers: Hypertension type: primary hypertension Qualified Code(s): I10 - Essential (primary) hypertension (2) CKD stage 3a, GFR 45-59 ml/min: Comment: Renal biopsy 03/02/2024 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 He is not known to have significant proteinuria. His 24 hour urine for creatinine clearance was close to 40 mls/mt. He is on Jardiance 25 mg . He should be on a low K diet. I increased his lisinopril to 20 mg daily but may have to cut back ACEI if his serum K rises. F/U labs ordered. All questions answered. Follow-up appointment given. Orders: Orders Electrolytes 1 Month I10 - Essential (primary) hypertension, N18.31 - Chronic kidney disease, stage 3a Blood Urea Nitrogen 1 Month I10 - Essential (primary) hypertension, N18.31 - Chronic kidney disease, stage 3a Creatinine 1 Month I10 - Essential (primary) hypertension, N18.31 - Chronic kidney disease, stage 3a Medications: Changed From lisinopril 10 mg PO DAILY 30 tabs 3RF I10 - Essential (primary) hypertension To lisinopril 20 mg PO DAILY 90 tabs 3RF I10 - Essential (primary) hypertension Coding Level of Care Code Est Pt Level 4 (28947) Diagnoses Primary hypertension I10 Hypertension type: primary hypertension CKD stage 3a, GFR 45-59 ml/min N18.31
[2024-12-08 09:32] VITALS: BP 154/80; PULSE 69; O2SAT 97; BMI 22.0
--- OUTSIDE RECORDS SUMMARY | 2024-12-08 10:52 | XMS_ITS | Encounter Summary ---
Author Organization [facility] Address [address] [place] [address] Phone Care Team Providers Care Rural Carrier Name Role Phone Hien Bruner MD Primary Care Provider [phone] Pcp, Unknown Primary Care Provider [facility] Zenobia Dougherty MD Primary Care Provider Encounter Details Date Type Department Care Team (Late st Contact Info) Description 01/19/2022 Procedure Pass [facility] - MRI, [facility] [address] [place] [address] Social History Tobacco Use Types Packs/Day Years [...] on filedocumented in this encounter Care Teams Rural Carrier Relationship Specialty Start Date End Date Hien Bruner MD [address] [place] [address] PCP - General Internal Medicine 01/18/22 02/26/22 Pcp, Unknown PCP - General 02/27/22 04/17/22 Zenobia Dougherty MD [address] [place] [address] PCP - General Internal Medicine 04/18/22 documented as of this encounter Additional Source Comments The information contained in this document represents components of the legal health record. It is not the complete legal health record.[facility]
--- OUTSIDE RECORDS SUMMARY | 2024-12-08 10:52 | XMS_ITS | Encounter Summary ---
Author Organization [facility] Address [address] [place] [address] Phone Care Team Providers Care Operations Asst Name Role Phone Hien Bruner MD Primary Care Provider [phone] Pcp, Unknown [facility] Zenobia Dougherty MD Primary Care Provider [phone] Encounter Details Date Type Department Care Team (Late st Contact Info) Description 01/19/2022 Procedure Pass [facility] - MRI, [facility] [address] [place] [address] Social History Tobacco Use Types Packs/Day Years [...] on filedocumented in this encounter Care Teams Operations Asst Relationship Specialty Start Date End Date Hien Bruner MD [address] [place] [address] PCP - General Internal Medicine 01/18/22 02/26/22 Pcp, Unknown PCP - General 02/27/22 04/17/22 Zenobia Dougherty MD [address] [place] [address] PCP - General Internal Medicine 04/18/22 documented as of this encounter Additional Source Comments The information contained in this document represents components of the legal health record. It is not the complete legal health record.[facility]
--- OUTSIDE RECORDS SUMMARY | 2024-12-08 10:52 | XMS_ITS | Encounter Summary ---
Author Organization [facility] Address [address] [place] [address] Phone Care Team Providers Care Bottom Scrubber Name Role Phone Hien Bruner MD Primary Care Provider [phone] Pcp, Unknown [facility] Zenobia Dougherty MD Primary Care Provider Encounter Details Date Type Department Care Team (Late st Contact Info) Description 01/18/2022 Procedure Pass [facility] - CT Main [place] [address] [place] [address] Social History Tobacco Use Types Packs/Day Years [...] on filedocumented in this encounter Care Teams Bottom Scrubber Relationship Specialty Start Date End Date Hien Bruner MD [address] [place] [address] PCP - General Internal Medicine 01/18/22 02/26/22 Pcp, Unknown PCP - General 02/27/22 04/17/22 Zenobia Dougherty MD [address] [place] [address] PCP - General Internal Medicine 04/18/22 documented as of this encounter Additional Source Comments The information contained in this document represents components of the legal health record. It is not the complete legal health record.[facility]
== END 2024-12-08 09:57 | disposition home or self-care (01) ==
LOC: HO.HKAS 09:30
PROVIDERS: PCP Internal Medicine; Visit Provider Internal Medicine Nephrology
DX: I10 Essential (primary) hypertension (principal); N18.31 Chronic kidney disease, stage 3a
CPT/HCPCS: 99214

== ENCOUNTER → 2024-12-08 09:29 | Outpatient (BNVA) | payer OTHER, SELFPAY | PROVIDERS: PCP Internal Medicine; Visit Provider Internal Medicine Nephrology | DX: E11.22 Type 2 diabetes mellitus with diabetic chronic kidney disease (principal); I12.9 Hypertensive chronic kidney disease with stage 1 through stage 4 chronic kidney disease, or unspecified chronic kidney disease; N18.31 Chronic kidney disease, stage 3a; E11.65 Type 2 diabetes mellitus with hyperglycemia; E78.00 Pure hypercholesterolemia, unspecified; R79.89 Other specified abnormal findings of blood chemistry; F17.210 Nicotine dependence, cigarettes, uncomplicated; Z79.84 Long term (current) use of oral hypoglycemic drugs | CPT/HCPCS: 99212 ==

== ENCOUNTER 2024-12-08 15:50 | Outpatient (AMB) | payer OTHER, SELFPAY ==
--- OUTSIDE RECORDS SUMMARY | 2022-01-19 21:04 | XMS_ITS | Encounter Summary ---
Author Organization [facility] Address [address] [place] [address] Phone Care Team Providers Care Sales Route Driver Helper Name Role Phone Hien Bruner MD Primary Care Provider +1- [phone] Encounter Details Date Type Department Care Team (Late st Contact Info) Description 01/19/2022 8:04 PM EST Hospital Encounter [facility] [address] [place] [address] Rosemarie Rubio MD [address] [place] [phone] [email or web address] Social History Tobacco Use Types Packs/Day Years [...] on filedocumented in this encounter Care Teams Sales Route Driver Helper Relationship Specialty Start Date End Date Hien Bruner MD [address] [place] [phone] [email or web address] PCP - General Internal Medicine 01/18/22 02/26/22 documented as of this encounter Additional Source Comments The information contained in this document represents components of the legal health record. It is not the complete legal health record.[facility]
--- OUTSIDE RECORDS SUMMARY | 2022-01-19 21:10 | XMS_ITS | Encounter Summary ---
Author Organization [facility] Address [address] [place] [address] Phone Care Team Providers Care Animal Humane Agent Supervisor Name Role Phone Hien Bruner MD Primary Care Provider [phone]- [phone] Encounter Details Date Type Department Care Team (Late st Contact Info) Description 01/19/2022 8:10 PM [facility] Hospital Encounter [facility] OUTSIDE [address] [place] [address] Eimly Johnson MD [address] [place] [phone] [email or web address] Social History Tobacco Use Types Packs/Day Years [...] EXAMS: MRI brain with and without contrast ([id number] - 01/19/2022) Clinical concern for cavernous sinus thrombosis. No definite evidence of a cavernous sinus thrombosis. Thickening and edema of the left superior rectus complex without clear visualization of the left superior ophthalmic vein. COMMUNICATED TO: Emily Johnson ([facility] [place] at 01/19/2022 8:30:00 PM [...] created by Dr. Frank Martinez. Procedure Note Dough Cutter, Dictation - 01/20/2022 PRELIMINARY INTERPRETATION REGARDING EXAMS: MRI brain with and without contrast ([id number] -01/19/2022) Clinical concern for cavernous sinus thrombosis. No definite evidence of a cavernous sinus thrombosis. Thickening and edemaof the left superior rectus complex without clear visualization of theleft superior ophthalmic vein. COMMUNICATED TO: Emily Johnson ([facility] at 01/19/2022 8:30:00 PM [...] on filedocumented in this encounter Care Teams Animal Humane Agent Supervisor Relationship Specialty Start Date End Date Hien Bruner MD [address] [place] [phone] [email or web address] PCP - General Internal Medicine 01/18/22 02/26/22 documented as of this encounter Additional Source Comments The information contained in this document represents components of the legal health record. It is not the complete legal health record.[facility]
[2024-12-08 15:57] VITALS: BP 132/80; PULSE 64; TEMP 36.3; O2SAT 97; BMI 21.8
--- NOTE | 2024-12-08 15:57 | MHC.PC.OV ---
Vital Signs 12/08/24 15:57 Height 5 ft 9 in Weight 147 lb 6 oz BMI 21.8 BP 132/80 Blood Pressure Location Lt brachial Position Sitting Pulse 64 Pulse Source Pulse Oximeter Temp 97.3 F Temp Source Temporal Artery Scan Pulse Oximetry (%) 97 Oxygen Delivery Method Room Air Intake Visit Reasons: DM Allergies No Known Allergies Allergy (Verified 12/08/24 15:59) Medication List - Last Reconciled 12/08/24 by Zenobia Dougherty MD blood pressure monitor As directed blood sugar diagnostic (FreeStyle Lite Strips) As directed check the BS QD blood-glucose meter (FreeStyle Lite Meter kit) As directed check the BS QD cholecalciferol (vitamin D3) 25 mcg PO DAILY empagliflozin 25 mg PO DAILY lancets (FreeStyle Lancets) As directed check the BS QD lisinopril 20 mg PO DAILY metoprolol succinate ER 50 mg PO DAILY 90 days pioglitazone 15 mg PO DAILY Tobacco use date assessed: 12/08/24 Dental Screening Dental Screen Date: 12/08/24 Did you have a dental visit in the last 12 months?: No Did you have a dental problem in the last 6 months where you did not have access to dental care?: No Was dental information given to patient?: Patient has dentist [facility] Medical History Colon cancer screening Annual physical exam Shoulder abscess Multinodular goiter Graves disease Elbow pain, left Hyperthyroidism Hypertension Surgical History History of knee surgery Family History Mother Myocardial infarct Breast cancer Father Myocardial infarct Social History Housing: House Alcohol intake: current Alcohol intake frequency: does not drink Patient Tobacco Use Status: Current someday Tobacco user Tobacco use type: Cigarette Cigarettes Per Day: 2 Years Smoked: WORKING ON [employer] 1 a day (11/2022) e-Cigarette/Vaping Use: Never Used Second Hand Smoke Exposure: No service: No Current occupational status: employed Current occupational exposures/hazards: No Cognitive needs: No Hearing needs: No Vision needs: No Questionnaire PHQ-9 Over the last 2 weeks, how often have you been bothered by any of the following problems? 1. Little interest or pleasure in doing things: not at all 2. Feeling down, depressed, or hopeless: not at all 3. Trouble falling or staying asleep, or sleeping too much: not at all 4. Feeling tired or having little energy: not at all 5. Poor appetite or overeating: not at all 6. Feeling bad about yourself - or that you are a failure or have let yourself or your family down: not at all 7. Trouble concentrating on things, such as reading the newspaper or watching television: not at all 8. Moving or speaking so slowly that other people could have noticed. Or the opposite - being so fidgety or restless that you have been moving around a lot more than usual: not at all 9. Thoughts that you would be better off or of hurting yourself in some way: not at all Total score: 0 Source: Developed by Drs. Frank Cota, Bhumi Green, Jabari Mustafa and colleagues, with an educational baylee from [employer]. Thrive Questionnaire Date Thrive assessed: 02/24/24 I am a: Parent/Caregiver What is your living situation today?: I choose not to answer this question Within the past 12 months, did the food you bought not last and you didn't have the money to get more?: I choose not to answer this question Within the past 12 months, did you worry whether your food would run out before you got money to buy more?: I choose not to answer this question Do you have trouble paying for medicines?: No Do you have trouble getting transportation to medical appointments?: No Do you have trouble paying your heating and electricity bill?: No Do you have trouble taking care of your child, family member or friend?: No Do you have trouble with day-to-day activities such as bathing, preparing meals, shopping, managing finances, etc.?: No Are you currently unemployed and looking for a job?: No Are you interested in more education?: No Please select the resources that you would like help with: None Currently or been in a relationship where the following occur: I choose not to answer THRIVE Score: 0 AUDIT C Alcohol Use Questionnaire (AUDIT-C) 1. How often do you have a drink containing alcohol?: Never 3. How often do you have six or more drinks on one occasion?: Never Total Score: 0 LUIZ-7 AMB Questionnaire LUIZ-7 Date LUIZ - 7 assessed: 02/24/24 Feeling nervous, anxious, or on edge: 0 = Not at all Not being able to stop or control worryin = Not at all Worrying too much about different things: 0 = Not at all Trouble relaxin = Not at all Being so restless that it is hard to sit still: 0 = Not at all Becoming easily annoyed or irritable: 0 = Not at all Feeling afraid as if something awful might happen: 0 = Not at all Total LUIZ-7 score (0-4 normal; 5-9 mild; 10-14 moderate; 15-21 severe): 0 Source: Developed by Drs. Frank Cota, Bhumi Green, Jabari Mustafa and colleagues, with an educational baylee from [employer]. Physical exam (Primary Care) Vital Signs: Last Vital Signs Temp 97.3 F 12/08/24 15:57 Pulse 64 12/08/24 15:57 BP 132/80 12/08/24 15:57 Pulse Ox 97 12/08/24 15:57 Oxygen Delivery Method Room Air 12/08/24 15:57 BMI result Body Mass Index 21.8 Tobacco/Smoking Status: Tobacco use Status Tobacco use date assessed 12/08/24 12/08/24 16:00 Patient Tobacco Use Status Current someday Tobacco 12/08/24 16:00 Tobacco use type Cigarette 12/08/24 16:00 e-Cigarette/Vaping Use Never Used 12/08/24 16:00 PHQ-9: PHQ-9 Score PHQ-9: Total score 0 12/08/24 16:00 Thrive Assessment: Date of Thrive Assessment Date Thrive assessed 02/24/24 12/08/24 16:00 Currently or been in a relationship where the following occur: I choose not to answer Const General: alert; No acute distress Eyes Conjunctivae: conjunctivae normal Resp Auscultation: clear to auscultation bilaterally Cardio Rate: regular rate Rhythm: regular rhythm GI Inspection: Yes normal to inspection Extrem General: Yes normal to inspection and No edema Coding Level of Care Code Est Pt Level 4 (65215) Complex EM visit Add On G2211 Diagnoses Type 2 diabetes mellitus with hyperglycemia, without long-term current use of insulin E11.65 Diabetes mellitus long term care phlebotomist insulin use: without long term care phlebotomist use Primary hypertension I10 Hypertension type: primary hypertension Hypercholesterolemia E78.00 CKD stage 3a, GFR 45-59 ml/min N18.31 Tobacco abuse Z72.0 Abnormal TSH R79.89 Assessment & Plan Assessment & Plan (1) Type 2 diabetes mellitus with hyperglycemia: Comment: Eye and lasik Code(s): E11.65 - Type 2 diabetes mellitus with hyperglycemia Category: Medical Qualifiers: Diabetes mellitus [facility] insulin use: without long term care phlebotomist use Qualified Code(s): E11.65 - Type 2 diabetes mellitus with hyperglycemia Plan: Decrease the amount of carbohydrate intake, pasta, bread, rice and potatoes are all sugar and that is aside from all the sweet stuff, remember that fruits are good but they are Sweet also. Hemoglobin A1c goal of less than 6.5. Patient is taking Jardiance 25 mg once a day only (2) Hypertension: Code(s): I10 - Essential (primary) hypertension Category: Medical Qualifiers: Hypertension type: primary hypertension Qualified Code(s): I10 - Essential (primary) hypertension Plan: Continue with blood pressure medication. Decrease salt intake and exercise on lisinopril 20 mg once a day metoprolol 50 mg once a day (3) Hypercholesterolemia: Code(s): E78.00 - Pure hypercholesterolemia, unspecified Category: Medical Plan: Avoid fried foods, chicken skin, eggs, butter margarine, pastries and meat. 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 Patient is being followed up by Nephrology (5) Tobacco abuse: Code(s): Z72.0 - Tobacco use Category: Medical Plan: Patient is strongly advised to stop smoking! (6) Abnormal TSH: Code(s): R79.89 - Other specified abnormal findings of blood chemistry Category: Medical Plan: Patient needs a follow-up blood work for thyroid Plan History of Present Illness The patient is a 53-year-old male, who is a smoker, presenting for a follow-up visit for management of multiple chronic conditions. His last visit was in August 2024. The patient has a history of type 2 diabetes mellitus, which is currently uncontrolled with a hemoglobin A1c of 7.9% as of October. He is on Jardiance 25 mg daily and admits to eating late at night and consuming tortillas, which are high in carbohydrates. He has chronic kidney disease, secondary to diabetes, and is followed by a display associate, whom he saw on December 08. His creatinine was 1.55 in October. The display associate recently increased his lisinopril to 20 mg once a day for blood pressure management and advised a low potassium diet. The patient has a history of hypertension, managed with lisinopril 20 mg and metoprolol 50 mg once daily. He also has hypercholesterolemia, with a recent LDL of 100 and triglycerides of 279, and is currently managing this with diet only. His history includes hypothyroidism, and he is on thyroid medication. His TSH was noted to be low at 0.24 in October. He was also found to have a vitamin B12 level of 207 and is not currently taking a supplement. For health maintenance, his last colonoscopy was in August 2022. The patient reports having a cough for the past two days but denies any fever. Health Maintenance - The patient's last colonoscopy was performed in August 2022. - The patient was strongly advised to stop smoking. - The patient was advised to make dietary changes, including stopping late-night eating, avoiding fried foods, and reducing intake of sugar, rice, pasta, bread, and tortillas. - The patient was counseled to stay well hydrated, drink 6-8 glasses of water a day, and avoid NSAIDs to protect his kidneys. Social History - Tobacco use: The patient is a current smoker. - Alcohol use: The patient reports a history of drinking too much, which he has now stopped. - Diet: The patient eats twice a day, skipping breakfast. - He reports eating a full dinner at 10:30 PM and eating lunch after 12:00 PM. - He admits to eating tortillas, which are high in carbohydrates. - Sleep: The patient reports going to sleep around 2 or 3 AM and waking up between 9 AM and 11 AM. Review of Systems - Respiratory: Reports a cough for a couple of days. - General: Denies fever. - HEENT: Denies sore throat, ear pain, or congestion. Physical Exam - HEENT: Oropharynx does not appear erythematous. Sinuses are non-tender to palpation. - Lungs: Clear to auscultation bilaterally. Results - Lab results from October 30: - CBC: Normal blood count, no anemia. - CMP: Electrolytes normal, potassium 4.8, creatinine 1.55, ALT 54, blood sugar 289. - Hemoglobin A1c: 7.9%. - Lipid Panel: LDL 100, Triglycerides 279. - Vitamin B12: 207. - TSH: 0.24. Plan Patient was informed and verbally consented to the use of an ambient scribe for clinic note documentation during this visit. 1. Type 2 Diabetes Mellitus The patient's hemoglobin A1c is elevated at 7.9%, with a goal of less than 6.5%. The patient is currently taking Jardiance 25 mg once daily. The options of weekly injections or daily insulin were discussed, but the patient declined injections. Pioglitazone will be added to his current regimen with Jardiance to help lower his blood sugar. Extensive dietary counseling was provided, emphasizing the need to improve his diet, avoid carbohydrates such as pasta, bread, rice, and tortillas, and eat more vegetables. 2. Hyperlipidemia The patient's LDL cholesterol is at the goal of 100, but his triglycerides are elevated at 279, with a goal of less than 150. The patient is currently managing his cholesterol with diet only. The importance of controlling cholesterol to prevent heart attack and stroke was emphasized. He was counseled to avoid fried foods. 3. Chronic Kidney Disease The patient has stable chronic kidney disease, secondary to diabetes, with a creatinine of 1.55. He is followed by nephrology. The plan is to continue to manage his diabetes and blood pressure, advise him to stay well-hydrated, and avoid NSAIDs. 4. Hypothyroidism The patient's recent TSH was low at 0.24. He will continue his current thyroid medication, and his thyroid function will be retested with lab work in three months. 5. Vitamin B12 Deficiency The patient's vitamin B12 level is low at 207. He is not currently taking a supplement. A prescription for once-daily vitamin B12 will be sent. 6. Hypertension The patient's hypertension is co-managed with nephrology. He is currently taking lisinopril 20 mg and metoprolol 50 mg once a day. No changes were made to his blood pressure regimen at this visit. 7. Tobacco Use The patient is a current smoker and was strongly advised to stop smoking. 8. Cough The patient has had a cough for two days without fever, sore throat, or ear pain. The exam was unremarkable, and the cough is thought to be allergy-related. Recommendation was made to take Claritin, though the patient can continue using NyQuil, which he finds effective. Discussion Notes I have reviewed the patient's recent lab work with him in detail. I discussed his uncontrolled diabetes, noting his HbA1c of 7.9% is well above our goal of less than 6.5%. I explained that his medication options are limited by his chronic kidney disease. I offered injectable therapy, including a once-weekly shot or daily insulin, but he declined this option. We agreed to add an oral medication, pioglitazone, to his current regimen of Jardiance. I have counseled him extensively on the need for dietary changes, including avoiding carbohydrates like tortillas, rice, and pasta, to improve his glycemic control. I also emphasized that controlling his blood sugar, as well as his hyperlipidemia, is critical to prevent a future heart attack or stroke, and that his kidneys are already affected. We discussed his low TSH, and we will retest his thyroid function in three months. We will also initiate Vitamin B12 supplementation for his deficiency. I strongly advised him to stop smoking. The plan is to repeat blood work in three months, one week prior to his follow-up visit. Patient Instructions - Start taking the new diabetes medication, pioglitazone, once a day in addition to your Jardiance. - Start taking one Vitamin B12 tablet every day. - You must change your diet to lower your blood sugar. Avoid foods like tortillas, rice, pasta, bread, and potatoes. Eat more vegetables like salads. - Avoid fried foods to help your cholesterol. - It is very important that you stop smoking. - Drink plenty of water, about 6 to 8 glasses a day, and avoid taking NSAIDs like ibuprofen or naproxen. - For your cough, you can take an allergy medicine like Claritin (loratadine) or continue using NyQuil if it helps. - You will need to have blood work done in three months. Please have it done about one week before your next appointment. Orders: Orders Lipid Panel 3 Months E78.00 - Pure hypercholesterolemia, unspecified, R79. - Other specified abnormal findings of blood chemistry Thyroid Stimulating Hormone 3 Months R7. - Other specified abnormal findings of blood chemistry Hemoglobin A1c 3 Months R7. - Other specified abnormal findings of blood chemistry Free T4 (Free Thyroxine) 3 Months R7. - Other specified abnormal findings of blood chemistry Comprehensive Met. Panel 3 Months R7 - Other specified abnormal findings of blood chemistry Complete Blood Count Auto Diff 3 Months - Other specified abnormal findings of blood chemistry Medications: New cyanocobalamin (vitamin B-12) 1,000 mcg PO DAILY 30 caps 3RF E11.65 - Type 2 diabetes mellitus with hyperglycemia, E53.8 - Deficiency of other specified B group vitamins pioglitazone 15 mg PO DAILY 30 tabs 3RF E11.65 - Type 2 diabetes mellitus with hyperglycemia
--- OUTSIDE RECORDS SUMMARY | 2024-12-08 20:04 | XMS_ITS | Encounter Summary ---
Author Organization [facility] Address [address] [place] [address] Phone Care Team Providers Care Shampoo Person Name Role Phone Hien Bruner MD Primary Care Provider [phone] Pcp, Unknown [facility] Zenobia Dougherty MD Primary Care Provider Encounter Details Date Type Department Care Team (Late st Contact Info) Description 01/19/2022 Procedure Pass [facility] - MRI, [facility] [address] [place] [address] Social History Tobacco Use Types Packs/Day Years [...] on filedocumented in this encounter Care Teams Shampoo Person Relationship Specialty Start Date End Date Hien Bruner MD [address] [place] [id number] PCP - General Internal Medicine 01/18/22 02/26/22 Pcp, Unknown PCP - General 02/27/22 04/17/22 Zenobia Dougherty MD [address] [place] [address] PCP - General Internal Medicine 04/18/22 documented as of this encounter Additional Source Comments The information contained in this document represents components of the legal health record. It is not the complete legal health record.[facility]
--- OUTSIDE RECORDS SUMMARY | 2024-12-08 20:04 | XMS_ITS | Encounter Summary ---
Author Organization [facility] Address [address] [place] [address] Phone Care Team Providers Care C Software Developer Name Role Phone Hien Bruner MD Primary Care Provider [phone] Pcp, Unknown [facility] Zen[facility] Dougherty MD Primary Care Provider Encounter Details Date Type Department Care Team (Late st Contact Info) Description 01/19/2022 Procedure Pass [facility] - MRI, [facility] [address] [place] [address] Social History Tobacco Use Types Packs/Day Years [...] on filedocumented in this encounter Care Teams C Software Developer Relationship Specialty Start Date End Date Hien Bruner MD [address] [place] [address] PCP - General Internal Medicine 01/18/22 02/26/22 Pcp, Unknown PCP - General 02/27/22 04/17/22 Zenobia Dougherty MD [address] [place] [address] PCP - General Internal Medicine 04/18/22 documented as of this encounter Additional Source Comments The information contained in this document represents components of the legal health record. It is not the complete legal health record.[facility]
--- OUTSIDE RECORDS SUMMARY | 2024-12-08 20:04 | XMS_ITS | Encounter Summary ---
Author Organization [facility] Address [address] [place] [address] Phone Care Team Providers Care Coat Ironer Hand Name Role Phone Hien Bruner MD Primary Care Provider [phone] Pcp, Unknown [facility] Zen[facility] Dougherty MD Primary Care Provider Encounter Details Date Type Department Care Team (Late st Contact Info) Description 01/18/2022 Procedure Pass [facility] - [facility] [address] [place] [address] Social History Tobacco Use Types Packs/Day Years [...] on filedocumented in this encounter Care Teams Coat Ironer Hand Relationship Specialty Start Date End Date Hien Bruner MD [address] [place] [address] PCP - General Internal Medicine 01/18/22 02/26/22 Pcp, Unknown PCP - General 02/27/22 04/17/22 Zenobia Dougherty MD [address] [place] [address] PCP - General Internal Medicine 04/18/22 documented as of this encounter Additional Source Comments The information contained in this document represents components of the legal health record. It is not the complete legal health record.[facility]
--- OUTSIDE RECORDS SUMMARY | 2024-12-08 20:04 | XMS_ITS | Clinical Summary ---
Author Organization [facility] Address [address] [place] [address] Phone Care Team Providers Care Kettle Worker Name Role Phone Zenobia Dougherty MD Primary Care Provider [phone] Allergies No known active allergies Medications metFORMIN [...] VACCINE (#1) 2024 COVID-19 VACCINE (1 - 2024-2 6 season) 2024 RSV VACCINE (1 - 1-dose 75+ series) 12/17/2047 HEPATITIS A VACCINES Aged Out No long [...] topic Medical Devices Not on file Insurance [employer] LIMITED [facility] FULL [employer] NET FULL [employer] LIMITED HEALTH SAFETY NET FULL [employer] LIMITED [facility] SAFETY NET FULL Member Subscriber Plan / Payer (Ef fective 2022-) Name:Bradley Salazar Relation to Subscriber:Self Name:Bradley Salazar Payer ID:Not on file Group ID:Not on file Type:Medicaid Address: [place] [id number] [employer] LIMITED HEALTH SAFETY NET FULL [facility] LIMITED [place]ALTH [place] [address] Care Teams Kettle Worker Relationship Specialty Start Date End Date Po, Zenobia Cohen MD [address] [place] [address] PCP - General Internal Medicine 04/18/22 Additional Source Comments The information contained in this document represents components of the legal health record. It is not the complete legal health record.[facility]
== END 2024-12-08 16:44 | disposition home or self-care (01) ==
LOC: HO.HMCH 15:51
PROVIDERS: PCP Internal Medicine; Visit Provider Internal Medicine
DX: E11.65 Type 2 diabetes mellitus with hyperglycemia (principal); I10 Essential (primary) hypertension; E78.00 Pure hypercholesterolemia, unspecified; N18.31 Chronic kidney disease, stage 3a; Z72.0 Tobacco use; R79.89 Other specified abnormal findings of blood chemistry

== ENCOUNTER 2025-01-01 14:03 | Outpatient (REF) | payer OTHER, SELFPAY ==
--- OUTSIDE RECORDS SUMMARY | 2022-01-19 20:04 | XMS_ITS | Encounter Summary ---
Author Organization [facility] Address [address] [place] [address] Phone Care Team Providers Care Technology Lead Name Role Phone Hien Bruner MD Primary Care Provider [phone]- [phone] Encounter Details Date Type Department Care Team (Late st Contact Info) Description 01/19/2022 8:04 PM EST Hospital Encounter [facility] [address] [place] [address] Rosemarie Rubio MD [address] [place] [address] [email or web address] Social History Tobacco Use Types Packs/Day Years [...] on filedocumented in this encounter Care Teams Technology Lead Relationship Specialty Start Date End Date Hien Bruner MD [address] [place] [phone] [email or web address] PCP - General Internal Medicine 01/18/22 02/26/22 documented as of this encounter Additional Source Comments The information contained in this document represents components of the legal health record. It is not the complete legal health record.[facility]
--- OUTSIDE RECORDS SUMMARY | 2022-01-19 20:10 | XMS_ITS | Encounter Summary ---
Author Organization [facility] Address [address] [place] [address] Phone Care Team Providers Care Lieutenant Fire Fighter Name Role Phone Hien Bruner MD Primary Care Provider [phone]- [phone] Encounter Details Date Type Department Care Team (Late st Contact Info) Description 01/19/2022 8:10 PM [facility] Hospital Encounter [facility] OUT[facility] [address] [place] [address] Emily Johnson MD [address] [place] [phone] [email or web address] Social History Tobacco Use Types Packs/Day Years [...] as of this encounter Plan of Treatment Not on file documented as of this encounter Procedures Procedure Name Priority Date/Time Associated Diagnosis Comments IMAGING NOTE Routine 01/19/2022 8:10 PM EST documented in this encounter Results * Imaging Note (01/19/2022 8:10 PM EST) Anatomical Region Laterality Modality Radiographic Rosalba ging 01/19/2022 8:11 PM EST Narrative 01/20/2022 5:12 PM EST PRELIMINARY INTERPRETATION REGARDING EXAMS: MRI brain with and without contrast ([id number] - 01/19/2022) Clinical concern for cavernous sinus thrombosis. No definite evidence of a cavernous sinus thrombosis. Thickening and edema of the left superior rectus complex without clear visualization of the left superior ophthalmic vein. COMMUNICATED TO: Emily Johnson ([facility]) at 01/19/2022 8:30:00 PM This represents only a limited, preliminary interpretation of the study to address specific clinical questions and to assess for urgent findings. The final report, when available, supersedes this report. ATTESTATION: LAURA Aldana Auto Signer as teaching physician, have reviewed the images for this case and if necessary edited the report originally created by Dr. Frank Martinez. Procedure Note Rubber Gasket Inspector Trimmer, Dictation - 01/20/2022 PRELIMINARY INTERPRETATION REGARDING EXAMS: MRI brain with and without contrast ([id number] -01/19/2022) Clinical concern for cavernous sinus thrombosis. No definite evidence of a cavernous sinus thrombosis. Thickening and edemaof the left superior rectus complex without clear visualization of theleft superior ophthalmic vein. COMMUNICATED TO: Emily Johnson ([facility]) at 01/19/2022 8:30:00 PM This represents only a limited, preliminary interpretation of the study toaddress specific clinical questions and to assess for urgent findings. Thefinal report, when available, supersedes this report. ATTESTATION: LAURA Aldana Auto Signer as teaching physician, have reviewed theimages for this case and if necessary edited the report originally createdby Dr. Frank Martinez. Emily Johnson MD IMG RC CONSULT Final Result documented in this encounter Visit Diagnoses Not on filedocumented in this encounter Care Teams Lieutenant Fire Fighter Relationship Specialty Start Date End Date Hien Bruner MD [address] [place] [phone] [email or web address] PCP - General Internal Medicine 01/18/22 02/26/22 documented as of this encounter Additional Source Comments The information contained in this document represents components of the legal health record. It is not the complete legal health record.[facility]
--- OUTSIDE RECORDS SUMMARY | 2025-01-01 14:30 | XMS_ITS | Encounter Summary ---
Author Organization [facility] Address [address] [place] [address] Phone Care Team Providers Care Animal Care Provider Name Role Phone Hien Bruner MD Primary Care Provider [phone] Pcp, Unknown [facility] Zenobia Dougherty MD Primary Care Provider [phone] Encounter Details Date Type Department Care Team (Late st Contact Info) Description 01/19/2022 Procedure Pass [facility] - MRI, [facility] [address] [place] [address] Social History Tobacco Use Types Packs/Day Years [...] filedocumented in this encounter Care Teams Animal Care Provider Relationship Specialty Start Date End Date Hien Bruner MD [address] [place] [address] PCP - General Internal Medicine 01/18/22 02/26/22 Pcp, Unknown PCP - General 02/27/22 04/17/22 Zenobia Dougherty MD [address] [place] [address] PCP - General Internal Medicine 04/18/22 documented as of this encounter Additional Source Comments The information contained in this document represents components of the legal health record. It is not the complete legal health record.[facility]
--- OUTSIDE RECORDS SUMMARY | 2025-01-01 14:30 | XMS_ITS | Clinical Summary ---
Author Organization [facility] Address [address] [place] [address] Phone Care Team Providers Care Supervisor Clam Bed Name Role Phone Zenobia Dougherty MD Primary Care Provider [phone] Allergies No known active allergies Medications metFORMIN [...] topic Medical Devices Not on file Insurance [employer] LIMITED [facility] FULL [employer] LIMITED Going NET FULL [employer] LIMITED HEALTH SAFETY NET FULL [employer] LIMITED [facility] SAFETY NET FULL Member Subscriber Plan / Payer (Ef fective 2022-) Name:Bradley Salazar Relation to Subscriber:Self Name:Bradley Salazar Payer ID:Not on file Group ID:Not on file Type:Medicaid Address: [place] [id number] [employer] LIMITED HEALTH SAFETY NET FULL [facility] LIMITED HEALTH [place] [address] Care Teams Supervisor Clam Bed Relationship Specialty Start Date End Date Po, Zenobia Cohen MD [address] [place] [address] PCP - General Internal Medicine 04/18/22 Additional Source Comments The information contained in this document represents components of the legal health record. It is not the complete legal health record.[facility]
--- OUTSIDE RECORDS SUMMARY | 2025-01-01 14:30 | XMS_ITS | Encounter Summary ---
Author Organization [facility] Address [address] [facility] [address] [place] [address] Phone Care Team Providers Care Batch Mixer Name Role Phone Hien Bruner MD Primary Care Provider [phone] Pcp, Unknown [facility] Doug[facility] MD Primary Care Provider [phone] Encounter Details Date Type Department Care Team (Late st Contact Info) Description 01/18/2022 Procedure Pass [facility] - [facility] Main [place] [address] [place] [address] Social History Tobacco Use Types Packs/Day Years [...] on filedocumented in this encounter Care Teams Batch Mixer Relationship Specialty Start Date End Date Hien Bruner MD [address] [place] [address] PCP - General Internal Medicine 01/18/22 02/26/22 Pcp, Unknown PCP - General 02/27/22 04/17/22 Zenobia Dougherty MD [address] [place] [address] PCP - General Internal Medicine 04/18/22 documented as of this encounter Additional Source Comments The information contained in this document represents components of the legal health record. It is not the complete legal health record.[facility]
--- OUTSIDE RECORDS SUMMARY | 2025-01-01 14:30 | XMS_ITS | Encounter Summary ---
Author Organization [facility] Address [address] [facility] [address] [place] [address] Phone Care Team Providers Care Gym Supervisor Name Role Phone Hien Bruner MD Primary Care Provider [phone] Pcp, Unknown [facility] Dougherty MD Primary Care Provider Encounter Details Date Type Department Care Team (Late st Contact Info) Description 01/19/2022 Procedure Pass [facility] - MRI, [facility] [address] [place] [address] Social History Tobacco Use Types Packs/Day Years [...] on filedocumented in this encounter Care Teams Gym Supervisor Relationship Specialty Start Date End Date Hien Bruner MD [address] [place] [address] PCP - General Internal Medicine 01/18/22 02/26/22 Pcp, Unknown PCP - General 02/27/22 04/17/22 Zenobia Dougherty MD [address] [place] [address] PCP - General Internal Medicine 04/18/22 documented as of this encounter Additional Source Comments The information contained in this document represents components of the legal health record. It is not the complete legal health record.[facility]
[2025-01-01 15:11] LABS: Anion Gap 14 (12-20); Blood Urea Nitrogen 24 mg/dL (9-16); Carbon Dioxide 26 mmol/L (22-29); Chloride 109 mmol/L (96-108); Estimated Glomerular Filt Rate 49; Potassium 5.6 mmol/L (3.3-5.1); Sodium 143 mmol/L (135-145)
[2025-01-01 15:28] LABS: Free T4 (Free Thyroxine) 1.04 ng/dL (0.71-1.85)
[2025-01-01 15:32] LABS: Thyroid Stimulating Hormone 4.37 uIU/mL (0.32-4.0)
== END 2025-01-01 14:04 | disposition home or self-care (01) ==
LOC: HO.LAB 14:03
PROVIDERS: PCP Internal Medicine; Visit Provider Internal Medicine Nephrology
DX: I12.9 Hypertensive chronic kidney disease with stage 1 through stage 4 chronic kidney disease, or unspecified chronic kidney disease (principal); N18.31 Chronic kidney disease, stage 3a; E87.5 Hyperkalemia; R79.89 Other specified abnormal findings of blood chemistry
CPT/HCPCS: 36415; 80051; 82565; 84439; 84443; 84520

== ENCOUNTER 2025-01-05 13:33 | Outpatient (AMB) | payer OTHER, SELFPAY ==
--- OUTSIDE RECORDS SUMMARY | 2022-01-19 20:04 | XMS_ITS | Encounter Summary ---
Author Organization [facility] Address [address] [place] [address] Phone Care Team Providers Care Non Destructive Tester Name Role Phone Hien Bruner MD Primary Care Provider [phone] Encounter Details Date Type Department Care Team (Late st Contact Info) Description 01/19/2022 8:04 PM EST Hospital Encounter [facility] [address] [place] [address] Rosemarie Rubio MD [address] [place] [address] [email or web address] Social History Tobacco Use Types Packs/Day Years Used Date Smoking Tobacco: Never Assessed Education Answer Date Recorded Are you interested in more education? Not on betty e 06/09/2022 Are you concerned about learning? Not on file 06/09/2022 No 06/09/2022 No 06/09/2022 Digital Access Answer Date Recorded No 07/07/2022 No 07/07/2022 Reliable internet access at home? Not on file 07/07/2022 Device with a working camera? Not on file Sex and Gender Information Value Date Recorded Sex Assigned at Not on file Legal Sex Male 12:26 PM EDT Gender Identity Not on file Sexual Orientation Not on file documented as of this encounter Plan of Treatment Pending Results Name Type Priority Associated Diagnoses Date /Time Imaging Note Imaging Routine 01/19/2022 8 :04 PM EST Scheduled Orders Name Type Priority Associated Diagnoses Orde r Schedule Imaging Note Imaging Routine As Needed fo r 1 Occurrences starting 01/19/2022 until 01/19/2022 documented as of this encounter Visit Diagnoses Not on filedocumented in this encounter Care Teams Non Destructive Tester Relationship Specialty Start Date End Date Hien Bruner MD [address] [place] [phone] [email or web address] PCP - General Internal Medicine 01/18/22 02/26/22 documented as of this encounter Additional Source Comments The information contained in this document represents components of the legal health record. It is not the complete legal health record.[facility]
--- OUTSIDE RECORDS SUMMARY | 2022-01-19 20:10 | XMS_ITS | Encounter Summary ---
Author Organization [facility] Address [address] [place] [address] Phone Care Team Providers Care Park Recreation Manager Name Role Phone Hien Bruner MD Primary Care Provider +1- [phone] Encounter Details Date Type Department Care Team (Late st Contact Info) Description 01/19/2022 8:10 PM [facility] Hospital Encounter [facility] [address] [place] [address] Emily Johnson MD [address] [place] [address] [email or web address] Social History Tobacco Use Types Packs/Day Years [...] EXAMS: MRI brain with and without contrast ([id number] - 01/19/2022) Clinical concern for cavernous sinus thrombosis. No definite evidence of a cavernous sinus thrombosis. Thickening and edema of the left superior rectus complex without clear visualization of the left superior ophthalmic vein. COMMUNICATED TO: Emily Johnson ([facility]) at 01/19/2022 8:30:00 PM This represents only a limited, preliminary interpretation of the study to address specific clinical questions and to assess for urgent findings. The final report, when available, supersedes this report. ATTESTATION: LAURA Aldana Auto Signer as teaching physician, have reviewed the images for this case and if necessary edited the report originally created by Dr. Frank Martinez. Procedure Note Filter Cloth Maker, Dictation - 01/20/2022 PRELIMINARY INTERPRETATION REGARDING EXAMS: MRI brain with and without contrast ([id number] -01/19/2022) Clinical concern for cavernous sinus thrombosis. No definite evidence of a cavernous sinus thrombosis. Thickening and edemaof the left superior rectus complex without clear visualization of theleft superior ophthalmic vein. COMMUNICATED TO: Emily Johnson ([facility]) at 01/19/2022 8:30:00 PM This represents only [...] on filedocumented in this encounter Care Teams Park Recreation Manager Relationship Specialty Start Date End Date Hien Bruner MD [address] [place] [address] [email or web address] PCP - General Internal Medicine 01/18/22 02/26/22 documented as of this encounter Additional Source Comments The information contained in this document represents components of the legal health record. It is not the complete legal health record.[facility]
--- NOTE | 2025-01-05 13:31 | HO.NEPHOV ---
Vital Signs 01/05/25 13:39 Height 5 ft 9 in Weight 151 lb 2 oz BMI 22.3 BP 134/78 Blood Pressure Location Lt brachial Position Sitting Pulse 75 Pulse Source Pulse Oximeter Pulse Oximetry (%) 99 Oxygen Delivery Method Room Air Intake Visit Reasons: 1mon f/u w/labs- Confirmed Communications Writer Required: No Accompanied by: Spouse Allergies No Known Allergies Allergy (Verified 01/05/25 13:38) HPI Comments Details: Bradley was seen in follow up for CKD and hypertension. He is a known diabetic & has been on metformin. He does not check his blood sugars regularly .He is on multiple antihypertensive medications. He denies any coronary artery disease, carotid stenosis congestive heart failure, CVA, peripheral arterial disease or any history of renal artery stenosis. He denies any family history of ESRD or renal transplantation. He does not have any sensorineural deafness or microscopic hematuria. He denies taking excessive nonsteroidal anti-inflammatories. He does not have any new bone or back pain. He denies epistaxis, recurrent sore throat, skin infections, uveitis, skin rashes, photosensitivity, epistaxis, joint swellings, dysuria or renal calculi. He does not have any hypoglycemias. His recent serum creatinine was 1.50. His K was high and was treated. He had a renal biopsy which showed diabetic renal disease. [facility] Medical History Colon cancer screening Annual physical exam Shoulder abscess Multinodular goiter Graves disease Elbow pain, left Hyperthyroidism Hypertension Surgical History History of knee surgery Family History Mother Myocardial infarct Breast cancer Father Myocardial infarct Social History Housing: House Alcohol intake: current Alcohol intake frequency: does not drink Patient Tobacco Use Status: Current someday Tobacco user Tobacco use type: Cigarette Cigarettes Per Day: 2 Years Smoked: WORKING ON [employer] 1 a day (11/2022) e-Cigarette/Vaping Use: Never Used Second Hand Smoke Exposure: No service: No Current occupational status: employed Current occupational exposures/hazards: No Cognitive needs: No Hearing needs: No Vision needs: No Review of Systems Const All systems reviewed & are unremarkable except as noted in HPI and below Physical Exam Const General: comfortable and no acute distress Orientation/consciousness: patient oriented x3 HEENT Head: Yes normocephalic Mouth: Normal oral and palatal mucosa present Eyes EOM: EOMs intact bilaterally Neck Neck: Yes supple Resp Auscultation: clear to auscultation bilaterally Cardio Jugular venous distension: no JVD Rate: regular rate GI Palpation (GI): Soft to palpation Auscultation: normal bowel sounds General: Yes no CVA tenderness Back/Spine/Pelvis Back: no CVA tenderness Skin General skin exam: no rashes or lesions noted Neuro General: patient oriented x3 and moves all extremities Extrem General: Yes no pedal edema Results Reviewed Nephrology Results: Hgb, (14.0-18.0) 14.4 g/dl Δ 10/30/24 WBC, (4.8-10.8) 7.6 X10*3/uL 10/30/24 Plt Count, (160-400) 221 X10*3/uL 10/30/24 Sodium, (135-145) 143 mmol/L 01/01/25 Potassium, (3.3-5.1) 5.6 mmol/L H 01/01/25 Chloride, (96-108) 109 mmol/L H 01/01/25 Carbon Dioxide, (22-29) 26 mmol/L 01/01/25 BUN, (9-16) 24 mg/dL H 01/01/25 Creatinine, (0.5-1.4) 1.50 mg/dL H 01/01/25 Calcium, (8.4-10.2) 9.6 mg/dL 10/30/24 Urine Creatinine 87.75 mg/dL 10/30/24 Renal US 12/24/23 Assessment & Plan Assessment & Plan (1) CKD stage 3a, GFR 45-59 ml/min: Comment: 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 He is not known to have significant proteinuria. His 24 hour urine for creatinine clearance was close to 40 mls/mt. He is on Jardiance 25 mg . He should be on a low K diet. He was given Kionex one dose which he has not taken yet. He has to repeat his K soon. We may have to cut back ACEI if his serum K rises. F/U labs ordered. All questions answered. Follow-up appointment given. Orders: Orders Electrolytes 2 Months E11.21 - Type 2 diabetes mellitus with diabetic nephropathy, I10 - Essential (primary) hypertension, N18.31 - Chronic kidney disease, stage 3a Electrolytes Today E87.5 - Hyperkalemia Blood Urea Nitrogen 2 Months E11.21 - Type 2 diabetes mellitus with diabetic nephropathy, I10 - Essential (primary) hypertension, N18.31 - Chronic kidney disease, stage 3a Creatinine 2 Months E11.21 - Type 2 diabetes mellitus with diabetic nephropathy, I10 - Essential (primary) hypertension, N18.31 - Chronic kidney disease, stage 3a Electrolytes 2 Weeks E87.5 - Hyperkalemia Coding Level of Care Code Est Pt Level 4 (26598) Diagnoses CKD stage 3a, GFR 45-59 ml/min N18.31 Diabetic nephropathy associated with type 2 diabetes mellitus E11.21 Hyperkalemia E87.5
[2025-01-05 13:39] VITALS: BP 134/78; PULSE 75; O2SAT 99; BMI 22.3
--- OUTSIDE RECORDS SUMMARY | 2025-01-05 17:26 | XMS_ITS | Encounter Summary ---
Author Organization [facility] Address [address] [facility] [address] [place] [address] Phone Care Team Providers Care Assistant Therapy Aide Name Role Phone Hien Bruner MD Primary Care Provider [phone] Pcp, Unknown Primary Care [facility] Zenobia Dougherty MD Primary Care Provider [phone] Encounter Details Date Type Department Care Team (Late st Contact Info) Description 01/18/2022 Procedure Pass [facility] - CT Main [place] [address] [place] [address] Social History Tobacco Use Types Packs/Day Years [...] on filedocumented in this encounter Care Teams Assistant Therapy Aide Relationship Specialty Start Date End Date Hien Bruner MD [address] [place] [address] PCP - General Internal Medicine 01/18/22 02/26/22 Pcp, Unknown PCP - General 02/27/22 04/17/22 Zenobia Dougherty MD [address] [place] [address] PCP - General Internal Medicine 04/18/22 documented as of this encounter Additional Source Comments The information contained in this document represents components of the legal health record. It is not the complete legal health record.[facility]
--- OUTSIDE RECORDS SUMMARY | 2025-01-05 17:26 | XMS_ITS | Clinical Summary ---
Author Organization [facility] Address [address] [place] [address] Phone Care Team Providers Care Registered Dietician Name Role Phone Zenobia Dougherty MD Primary Care Provider [phone] Allergies No known active allergies Medications metFORMIN [...] topic Medical Devices Not on file Insurance [employer] [facility] FULL [employer] [facility] NET [employer]ULL [employer] NET FULL [employer] [facility] SAFET[facility] NET FULL Member Subscriber Plan / Payer (Ef fective 2022-) Name:Bradley Salazar Relation to Subscriber:Self Name:Bradley Salazar Payer ID:Not on file Group ID:Not on file Type:Medicaid Address: [place] [id number] [employer] NET FULL [facility] [employer] [place] [place] [address] Care Teams Registered Dietician Relationship Specialty Start Date End Date Po, Zenobia Cohen MD [address] [place] [address] PCP - General Internal Medicine 04/18/22 Additional Source Comments The information contained in this document represents components of the legal health record. It is not the complete legal health record.[facility]
--- OUTSIDE RECORDS SUMMARY | 2025-01-05 17:26 | XMS_ITS | Encounter Summary ---
Author Organization [facility] Address [address] [facility] [facility] [address] [place] [address] Phone Care Team Providers Care Conservation Enforcement Officer Name Role Phone Hien Bruner MD Primary Care Provider [phone] Pcp, Unknown Primary Care Provider [facility] Zenobia Dougherty MD Primary Care Provider Encounter Details Date Type Department Care Team (Late st Contact Info) Description 01/19/2022 Procedure Pass [facility] - MRI, [facility] [address] [place] [address] Social History Tobacco Use Types Packs/Day Years [...] on filedocumented in this encounter Care Teams Conservation Enforcement Officer Relationship Specialty Start Date End Date Hien Bruner MD [address] [place] [address] PCP - General Internal Medicine 01/18/22 02/26/22 Pcp, Unknown PCP - General 02/27/22 04/17/22 Zenobia Dougherty MD [address] [place] [address] PCP - General Internal Medicine 04/18/22 documented as of this encounter Additional Source Comments The information contained in this document represents components of the legal health record. It is not the complete legal health record.[facility]
--- OUTSIDE RECORDS SUMMARY | 2025-01-05 17:26 | XMS_ITS | Encounter Summary ---
Author Organization [facility] Address [address] [facility] [address] [place] [address] Phone Care Team Providers Care Manager Customer Name Role Phone Hien Bruner MD Primary Care Provider [phone]- [phone] Pcp, Unknown [facility] Zenobia Dougherty MD Primary Care Provider Encounter Details Date Type Department Care Team (Late st Contact Info) Description 01/19/2022 Procedure Pass [facility] - MRI, [facility] [address] [place] [address] Social History Tobacco Use Types Packs/Day Years [...] on filedocumented in this encounter Care Teams Manager Customer Relationship Specialty Start Date End Date Hien Bruner MD [address] [place] [address] PCP - General Internal Medicine 01/18/22 02/26/22 Pcp, Unknown PCP - General 02/27/22 04/17/22 Zenobia Dougherty MD [address] [place] [address] PCP - General Internal Medicine 04/18/22 documented as of this encounter Additional Source Comments The information contained in this document represents components of the legal health record. It is not the complete legal health record.[facility]
== END 2025-01-05 14:14 | disposition home or self-care (01) ==
LOC: HO.HKAS 13:33
PROVIDERS: PCP Internal Medicine; Visit Provider Internal Medicine Nephrology
DX: N18.31 Chronic kidney disease, stage 3a (principal); E11.21 Type 2 diabetes mellitus with diabetic nephropathy; E87.5 Hyperkalemia
CPT/HCPCS: 99214

== ENCOUNTER → 2025-01-05 13:33 | Outpatient (BNVA) | payer OTHER, SELFPAY | PROVIDERS: PCP Internal Medicine; Visit Provider Internal Medicine Nephrology | DX: I12.9 Hypertensive chronic kidney disease with stage 1 through stage 4 chronic kidney disease, or unspecified chronic kidney disease (principal); E11.22 Type 2 diabetes mellitus with diabetic chronic kidney disease; N18.31 Chronic kidney disease, stage 3a; E87.5 Hyperkalemia; F17.210 Nicotine dependence, cigarettes, uncomplicated | CPT/HCPCS: 99212 ==

== ENCOUNTER 2025-02-01 14:14 | Outpatient (REF) | payer OTHER, SELFPAY ==
--- NOTE | ~2025-02-01 | XR_ITS ---
EXAMINATION: X-ray bilateral shoulders CLINICAL INFORMATION: Unspecified disorder COMPARISON: X-ray left shoulder 02/24/2024 TECHNIQUE: Left shoulder 4 views.] 4 views. FINDINGS: Left shoulder: No fracture or dislocation. Glenohumeral alignment is anatomic with normal joint space. Mild superior positioning of the distal clavicle with respect to the acromion at the acromioclavicular joint. This appears similar to previous. Acromioclavicular distance is maintained. No abnormal soft tissue calcification. Right shoulder: No acute fracture or dislocation. Glenohumeral and acromioclavicular alignment is anatomic, with normal joint space. No abnormal soft tissue calcification. XR/XR Shoulder Rodriguez min 2V IMPRESSION: Left shoulder: Mild acromioclavicular malalignment, could represent sequela of sprain injury. No acute fracture. Right shoulder: No acute findings Electronically signed by: Galen Alcantara MD 02/02/2025 03:13 PM JUDITH
--- NOTE | ~2025-02-01 | XR_ITS ---
EXAMINATION: XR KNEE, LEFT CLINICAL INFORMATION: M25.462 - Effusion, left knee COMPARISON: February 20, 2021 TECHNIQUE: AP and lateral views of the left knee. FINDINGS: There is mild to moderate narrowing of the medial joint space similar to the prior. Minute marginal osteophytes are increased involving the tibial plateau. There is small marginal osteophyte on the notch side of the lateral femoral condyle. There is an osteophyte involving the medial intercondylar spine. Joint effusion is increased. There is a small enthesophyte involving quadriceps attachment on patella. XR/XR knee LT 2V IMPRESSION: Mild to moderate osteoarthritis and increasing joint effusion. Electronically signed by: Reyes Abarca MD 02/01/2025 03:48 PM EST
== END 2025-02-01 14:15 | disposition home or self-care (01) ==
LOC: HO.XRAY 14:14
PROVIDERS: PCP Internal Medicine; Visit Provider Internal Medicine
DX: E11.65 Type 2 diabetes mellitus with hyperglycemia (principal); E11.22 Type 2 diabetes mellitus with diabetic chronic kidney disease; I12.9 Hypertensive chronic kidney disease with stage 1 through stage 4 chronic kidney disease, or unspecified chronic kidney disease; M25.462 Effusion, left knee; M25.812 Other specified joint disorders, left shoulder; E78.00 Pure hypercholesterolemia, unspecified; E06.3 Autoimmune thyroiditis; N18.31 Chronic kidney disease, stage 3a; F17.210 Nicotine dependence, cigarettes, uncomplicated; D63.1 Anemia in chronic kidney disease
CPT/HCPCS: 73030; 73560; 99212

== ENCOUNTER 2025-02-01 14:14 | Outpatient (AMB) | payer OTHER, SELFPAY ==
--- OUTSIDE RECORDS SUMMARY | 2022-01-19 20:04 | XMS_ITS | Encounter Summary ---
Author Organization [facility] Address [address] [place] [address] Phone Care Team Providers Care Residential Specialist Name Role Phone Hien Bruner MD Primary Care Provider [phone]- [phone] Encounter Details Date Type Department Care Team (Late st Contact Info) Description 01/19/2022 8:04 PM EST Hospital Encounter [facility] [address] [place] [address] Rosemarie Rubio MD [address] [place] [address] [email or web address] Social History Tobacco Use Types [...] on filedocumented in this encounter Care Teams Residential Specialist Relationship Specialty Start Date End Date Hien Bruner MD [address] [place] [address] [email or web address] PCP - General Internal Medicine 01/18/22 02/26/22 documented as of this encounter Additional Source Comments The information contained in this document represents components of the legal health record. It is not the complete legal health record.[facility]
--- OUTSIDE RECORDS SUMMARY | 2022-01-19 20:10 | XMS_ITS | Encounter Summary ---
Author Organization [facility] Address [address] [place] [address] Phone Care Team Providers Care Industrial Methods Consultant Name Role Phone Hien Bruner MD Primary Care Provider [phone]- [phone] Encounter Details Date Type Department Care Team (Late st Contact Info) Description 01/19/2022 8:10 PM [facility] Hospital Encounter [facility] [address] [place] [address] Emily Johnson MD [address] [place] [phone] [email or web address] Social History Tobacco Use Types Packs/Day Years [...] EXAMS: MRI brain with and without contrast ([id number] - 01/19/2022) Clinical concern for cavernous sinus thrombosis. No definite evidence of a cavernous sinus thrombosis. Thickening and edema of the left superior rectus complex without clear visualization of the left superior ophthalmic vein. COMMUNICATED TO: Emily Johnson ([facility]) at 01/19/2022 8:30:00 PM This represents only a limited, preliminary interpretation of the study to address specific clinical questions and to assess for urgent findings. The final report, when available, supersedes this report. ATTESTATION: LAURA Aldana Auto Signer as teaching physician, have reviewed the images for this case and if necessary edited the report originally created by Dr. Frank Martinez. Procedure Note Pattern Room Attendant, Dictation - 01/20/2022 PRELIMINARY INTERPRETATION REGARDING EXAMS: MRI brain with and without contrast ([id number] -01/19/2022) Clinical concern for cavernous sinus thrombosis. No definite evidence of a cavernous sinus thrombosis. Thickening and edemaof the left superior rectus complex without clear visualization of theleft superior ophthalmic vein. COMMUNICATED TO: Emily Johnson ([facility]) at 01/19/2022 8:30:00 PM This represents only [...] on filedocumented in this encounter Care Teams Industrial Methods Consultant Relationship Specialty Start Date End Date Hien Bruner MD [address] [place] [address] [email or web address] PCP - General Internal Medicine 01/18/22 02/26/22 documented as of this encounter Additional Source Comments The information contained in this document represents components of the legal health record. It is not the complete legal health record.[facility]
[2025-02-01 14:26] VITALS: BP 132/90; PULSE 83; O2SAT 98; BMI 21.6
--- NOTE | 2025-02-01 14:26 | MHC.PC.OV ---
Vital Signs 02/01/25 14:26 Height 5 ft 9 in Weight 146 lb BMI 21.6 BP 132/90 H Blood Pressure Location Lt brachial Position Sitting Pulse 83 Pulse Source Pulse Oximeter Pulse Oximetry (%) 98 Oxygen Delivery Method Room Air Intake Visit Reasons: liquid on the Knee Plastic Fabricator Required: No Accompanied by: Self / Same As Patient Allergies No Known Allergies Allergy (Verified 02/01/25 14:26) Medication List - Last Reconciled 02/01/25 by Zenobia Dougherty MD blood pressure monitor As directed blood sugar diagnostic (FreeStyle Lite Strips) As directed check the BS QD blood-glucose meter (FreeStyle Lite Meter kit) As directed check the BS QD cholecalciferol (vitamin D3) 25 mcg PO DAILY cyanocobalamin (vitamin B-12) 1,000 mcg PO DAILY empagliflozin 25 mg PO DAILY lancets (FreeStyle Lancets) As directed check the BS QD lisinopril 20 mg PO DAILY metoprolol succinate ER 50 mg PO DAILY 90 days pioglitazone 15 mg PO DAILY rosuvastatin 5 mg PO DAILY sodium polystyrene sulfonate 30 grams PO ONCE Tobacco use date assessed: 02/01/25 Dental Screening Dental Screen Date: 02/01/25 Did you have a dental visit in the last 12 months?: Yes Did you have a dental problem in the last 6 months where you did not have access to dental care?: No Was dental information given to patient?: Patient has dentist HPI HPI Comments History of Present Illness Details History of Present Illness The patient is a 54 year old male presenting for a follow-up visit for management of multiple chronic conditions. His past medical history is significant for diabetes mellitus, hypertension, anemia, hypothyroidism, and hypercholesterolemia. He is also a smoker. Regarding his diabetes, his last hemoglobin A1c in October was 7.9. 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 The patient has chronic kidney disease and follows up with nephrology. He was advised by his computer service technician to decrease his JORGITO inhibitor therapy if his serum potassium rises. Recent labs showed elevated potassium at 5.6 and a renal function of 1.5. Blood work from October 30 showed a normal blood count with no anemia. Liver enzymes were elevated, triglycerides were high at 279, LDL was 100, and his thyroid level was mildly elevated. For health maintenance, his colonoscopy was performed in August 2022. Health Maintenance - Colonoscopy: Completed in August 2022. - Diabetic eye exam: Patient has mild nonproliferative diabetic retinopathy in the left eye but reports not having an ophthalmology follow-up. - Smoking cessation: Patient was strongly advised to stop smoking. Social History - Tobacco Use: Patient is a smoker and was strongly advised to quit. Results - Complete blood count (October 30): Normal, with no anemia noted. - Serum potassium: 5.6 (elevated). - Renal function: 1.5. - Hemoglobin A1c (October): 7.9. - Liver enzymes: Elevated at 554. - Lipid panel: Triglycerides 279, LDL 100. - Thyroid function: Mildly elevated. - Colonoscopy (August 2022): Previously completed. [facility] Medical History Colon cancer screening Annual physical exam Shoulder abscess Multinodular goiter Graves disease Elbow pain, left Hyperthyroidism Hypertension Surgical History History of knee surgery Family History Mother Myocardial infarct Breast cancer Father Myocardial infarct Social History Housing: House Alcohol intake: current Alcohol intake frequency: does not drink Patient Tobacco Use Status: Current someday Tobacco user Tobacco use type: Cigarette Cigarettes Per Day: 2 Years Smoked: WORKING ON [employer] 1 a day (11/2022) Packs per year/per ci.00 e-Cigarette/Vaping Use: Never Used Second Hand Smoke Exposure: No service: No Current occupational status: employed Current occupational exposures/hazards: No Cognitive needs: No Hearing needs: No Vision needs: No Questionnaire PHQ-9 Over the last 2 weeks, how often have you been bothered by any of the following problems? 1. Little interest or pleasure in doing things: not at all 2. Feeling down, depressed, or hopeless: not at all 3. Trouble falling or staying asleep, or sleeping too much: not at all 4. Feeling tired or having little energy: not at all 5. Poor appetite or overeating: not at all 6. Feeling bad about yourself - or that you are a failure or have let yourself or your family down: not at all 7. Trouble concentrating on things, such as reading the newspaper or watching television: not at all 8. Moving or speaking so slowly that other people could have noticed. Or the opposite - being so fidgety or restless that you have been moving around a lot more than usual: not at all 9. Thoughts that you would be better off or of hurting yourself in some way: not at all Total score: 0 Source: Developed by Drs. Frank Cota, Bhumi Green, Jabari Mustafa and colleagues, with an educational baylee from [employer]. Thrive Questionnaire Date Thrive assessed: 02/01/25 I am a: Parent/Caregiver What is your living situation today?: I choose not to answer this question Within the past 12 months, did the food you bought not last and you didn't have the money to get more?: I choose not to answer this question Within the past 12 months, did you worry whether your food would run out before you got money to buy more?: I choose not to answer this question Do you have trouble paying for medicines?: No Do you have trouble getting transportation to medical appointments?: No Do you have trouble paying your heating and electricity bill?: No Do you have trouble taking care of your child, family member or friend?: No Do you have trouble with day-to-day activities such as bathing, preparing meals, shopping, managing finances, etc.?: No Are you currently unemployed and looking for a job?: No Are you interested in more education?: No Currently or been in a relationship where the following occur: I choose not to answer THRIVE Score: 0 AUDIT C Alcohol Use Questionnaire (AUDIT-C) 1. How often do you have a drink containing alcohol?: Never 3. How often do you have six or more drinks on one occasion?: Never Total Score: 0 LUIZ-7 AMB Questionnaire LUIZ-7 Date LUIZ - 7 assessed: 02/01/25 Feeling nervous, anxious, or on edge: 0 = Not at all Not being able to stop or control worryin = Not at all Worrying too much about different things: 0 = Not at all Trouble relaxin = Not at all Being so restless that it is hard to sit still: 0 = Not at all Becoming easily annoyed or irritable: 0 = Not at all Feeling afraid as if something awful might happen: 0 = Not at all Total LUIZ-7 score (0-4 normal; 5-9 mild; 10-14 moderate; 15-21 severe): 0 Source: Developed by Drs. Frank Cota, Bhumi Green, Jabari Mustafa and colleagues, with an educational baylee from [employer]. Review of Systems Narrative Review of Systems Physical exam (Primary Care) Vital Signs: Last Vital Signs Pulse 83 02/01/25 14:26 BP 132/90 H 02/01/25 14:26 Pulse Ox 98 02/01/25 14:26 Oxygen Delivery Method Room Air 02/01/25 14:26 BMI result Body Mass Index 21.6 Tobacco/Smoking Status: Tobacco use Status Tobacco use date assessed 02/01/25 02/01/25 14:32 Patient Tobacco Use Status Current someday Tobacco 02/01/25 14:26 Tobacco use type Cigarette 02/01/25 14:26 e-Cigarette/Vaping Use Never Used 02/01/25 14:26 PHQ-9: PHQ-9 Score PHQ-9: Total score 0 02/01/25 14:40 Thrive Assessment: Date of Thrive Assessment Date Thrive assessed 02/01/25 02/01/25 14:32 Currently or been in a relationship where the following occur: I choose not to answer Narrative Physical Exam Const General: alert; No acute distress Eyes Conjunctivae: conjunctivae normal Resp Auscultation: clear to auscultation bilaterally Cardio Rate: regular rate Rhythm: regular rhythm GI Inspection: Yes normal to inspection Extrem General: Yes normal to inspection and No edema Coding Level of Care Code Est Pt Level 4 (31125) Add On Problem Visit Only Diagnoses Type 2 diabetes mellitus with hyperglycemia, without long-term current use of insulin E11.65 Diabetes mellitus cardiac rehabilitation program director insulin use: without cardiac rehabilitation program director use Primary hypertension I10 Hypertension type: primary hypertension Hypercholesterolemia E78.00 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 CKD stage 3a, GFR 45-59 ml/min N18.31 Tobacco abuse Z72.0 Swelling of left knee M25.462 Impingement of left shoulder M25.812 Assessment & Plan Assessment & Plan (1) Type 2 diabetes mellitus with hyperglycemia: Comment: Eye and lasik Code(s): E11.65 - Type 2 diabetes mellitus with hyperglycemia Category: Medical Qualifiers: Diabetes mellitus chcf insulin use: without chcf use Qualified Code(s): E11.65 - Type 2 diabetes mellitus with hyperglycemia Plan: Decrease the amount of carbohydrate intake, pasta, bread, rice and potatoes are all sugar and that is aside from all the sweet stuff, remember that fruits are good but they are Sweet also. Hemoglobin A1c goal of less than 6.5 pioglitazone 50 mg once a day Jardiance 25 mg once a day (2) Hypertension: Code(s): I10 - Essential (primary) hypertension Category: Medical Qualifiers: Hypertension type: primary hypertension Qualified Code(s): I10 - Essential (primary) hypertension Plan: Continue with blood pressure medication. Decrease salt intake and exercise on lisinopril 20 mg once a day metoprolol 50 mg once a day will continue to monitor (3) Hypercholesterolemia: Code(s): E78.00 - Pure hypercholesterolemia, unspecified Category: Medical Plan: Avoid fried foods, chicken skin, eggs, butter margarine, pastries and meat. 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 (7) Swelling of left knee: Code(s): M25.462 - Effusion, left knee Category: Medical (8) Impingement of left shoulder: Code(s): M25.812 - Other specified joint disorders, left shoulder Category: Medical Plan Plan Patient was informed and verbally consented to the use of an ambient scribe for clinic note documentation during this visit. 1. Diabetes Mellitus The goal is a hemoglobin A1c of less than 6.5. The patient is on Pioglitazone 15 mg and Jardiance 25 mg once daily. 2. Hypertension The patient is on lisinopril 20 mg once a day and metoprolol 50 mg once a day. Will continue to monitor his blood pressure. 3. Hypercholesterolemia And Hypertriglyceridemia The goals are an LDL of less than 100 and triglycerides of less than 150. 4. Hypothyroidism The patient will continue his current thyroid medication. 5. Chronic Kidney Disease And Hyperkalemia The patient is advised to maintain good hydration and avoid NSAIDs. He should decrease his JORGITO inhibitor if his serum potassium rises, per his computer service technician's recommendation. 6. Tobacco Use The patient was strongly advised to stop smoking. Discussion Notes I reviewed the patient's plan of care, focusing on his chronic conditions. For his diabetes, the goal remains an HbA1c of less than 6.5, and he will continue Pioglitazone and Jardiance. His hypertension will continue to be managed with lisinopril and metoprolol, with ongoing monitoring. The cholesterol plan targets an LDL below 100 and triglycerides below 150. He will continue his thyroid medication. I reiterated the importance of staying well-hydrated and avoiding NSAIDs to protect his kidneys. I strongly advised him to stop smoking. Patient Instructions - Continue taking Pioglitazone and Jardiance for diabetes. - Continue taking lisinopril and metoprolol for high blood pressure. - Continue your thyroid medication as prescribed. - Remember to drink plenty of water and avoid using NSAID pain relievers like ibuprofen or naproxen to protect your kidneys. - It is very important that you stop smoking. Orders: Orders Hemoglobin A1c 3 Months E78.00 - Pure hypercholesterolemia, unspecified XR Shoulder Rodriguez min 2V Today M25.812 - Other specified joint disorders, left shoulder Lipid Panel 3 Months E78.00 - Pure hypercholesterolemia, unspecified Comprehensive Met. Panel 3 Months E78.00 - Pure hypercholesterolemia, unspecified Thyroid Stimulating Hormone 3 Months E78.00 - Pure hypercholesterolemia, unspecified Free T4 (Free Thyroxine) 3 Months E78.00 - Pure hypercholesterolemia, unspecified Complete Blood Count Auto Diff 3 Months E78.00 - Pure hypercholesterolemia, unspecified Vitamin B12 and Folate 3 Months E78.00 - Pure hypercholesterolemia, unspecified Vitamin D 25-OH Total 3 Months E78.00 - Pure hypercholesterolemia, unspecified XR knee LT 2V Today M25.462 - Effusion, left knee Uric Acid Today M25.462 - Effusion, left knee Referrals Orthopedics Referral M25.462 - Effusion, left knee, M25.812 - Other specified joint disorders, left shoulder Medications: New rosuvastatin 5 mg PO DAILY 30 tabs 4RF E78.00 - Pure hypercholesterolemia, unspecified diclofenac sodium 1% (Voltaren Arthritis Pain) apply to single knee, ankle, foot; for foot includes sole/toes/top of foot 4 grams topical QID 100 grams 2RF M25.462 - Effusion, left knee
--- OUTSIDE RECORDS SUMMARY | 2025-02-01 17:44 | XMS_ITS | Clinical Summary ---
Author Organization [facility] Address [address] [place] [id number] Phone Care Team Providers Care Agent Contract Clerk Name Role Phone Zenobia Dougherty MD Primary Care Provider [phone] Allergies No known active allergies Medications metFORMIN [...] topic Medical Devices Not on file Insurance [place] [employer] [facility] FULL [employer] NET FULL [employer] S[employer]Y NET FULL [place] [facility] SAFETY NET FULL Member Subscriber Plan / Payer (Ef fective 2022-) Name:Bradley Salazar Relation to Subscriber:Self Name:Bradley Salazar Payer ID:Not on file Group ID:Not on file Type:Medicaid Address: [place] [id number] [employer] NET FULL [facility] [employer] [place] [address] Care Teams Agent Contract Clerk Relationship Specialty Start Date End Date Po, Zenobia Cohen MD [address] [place] [address] PCP - General Internal Medicine 04/18/22 Additional Source Comments The information contained in this document represents components of the legal health record. It is not the complete legal health record.[facility]
--- OUTSIDE RECORDS SUMMARY | 2025-02-01 17:44 | XMS_ITS | Encounter Summary ---
Author Organization [facility] Address [address] [place] [address] Phone Care Team Providers Care Scout Executive Name Role Phone Hien Bruner MD Primary Care Provider [phone] Pcp, Unknown [facility] Doug[facility] MD Primary Care Provider Encounter Details Date Type Department Care Team (Late st Contact Info) Description 01/19/2022 Procedure Pass [facility] - [facility], [facility] [address] [place] [address] Social History Tobacco Use Types Packs/Day Years [...] on filedocumented in this encounter Care Teams Scout Executive Relationship Specialty Start Date End Date Hien Bruner MD [address] [place] [id number] PCP - General Internal Medicine 01/18/22 02/26/22 Pcp, Unknown PCP - General 02/27/22 04/17/22 Zenobia Dougherty MD [address] [place] [address] PCP - General Internal Medicine 04/18/22 documented as of this encounter Additional Source Comments The information contained in this document represents components of the legal health record. It is not the complete legal health record.[facility]
--- OUTSIDE RECORDS SUMMARY | 2025-02-01 17:44 | XMS_ITS | Encounter Summary ---
Author Organization [facility] Address [address] [place] [address] Phone Care Team Providers Care Cake Mixer Name Role Phone Hien Bruner MD Primary Care Provider [phone] Pcp, Unknown [facility] Care [facility] Zenobia Dougherty MD Primary Care Provider Encounter Details Date Type Department Care Team (Late st Contact Info) Description 01/19/2022 Procedure Pass [facility] - [facility], [facility] [address] [place] [address] Social History Tobacco Use Types Packs/Day Years [...] on filedocumented in this encounter Care Teams Cake Mixer Relationship Specialty Start Date End Date Hien Bruner MD [address] [place] [id number] PCP - General Internal Medicine 01/18/22 02/26/22 Pcp, Unknown PCP - General 02/27/22 04/17/22 Zenobia Dougherty MD [address] [place] [address] PCP - General Internal Medicine 04/18/22 documented as of this encounter Additional Source Comments The information contained in this document represents components of the legal health record. It is not the complete legal health record.[facility]
--- OUTSIDE RECORDS SUMMARY | 2025-02-01 17:44 | XMS_ITS | Encounter Summary ---
Author Organization [facility] Address [address] [place] [address] Phone Care Team Providers Care Soft Work Cigar Machine Operator Name Role Phone Hien Bruner MD Primary Care Provider [phone] Pcp, Unknown [facility] Zen[facility] Dougherty MD Primary Care Provider Encounter Details Date Type Department Care Team (Late st Contact Info) Description 01/18/2022 Procedure Pass [facility] - [facility] [place] [address] [place] [address] Social History Tobacco Use Types Packs/Day Years [...] on filedocumented in this encounter Care Teams Soft Work Cigar Machine Operator Relationship Specialty Start Date End Date Hien Bruner MD [address] [place] [address] PCP - General Internal Medicine 01/18/22 02/26/22 Pcp, Unknown PCP - General 02/27/22 04/17/22 Zenobia Dougherty MD [address] [place] [address] PCP - General Internal Medicine 04/18/22 documented as of this encounter Additional Source Comments The information contained in this document represents components of the legal health record. It is not the complete legal health record.[facility]
== END 2025-02-01 15:05 | disposition home or self-care (01) ==
LOC: HO.HMCH 14:15
PROVIDERS: PCP Internal Medicine; Visit Provider Internal Medicine
DX: E11.65 Type 2 diabetes mellitus with hyperglycemia (principal); I10 Essential (primary) hypertension; E78.00 Pure hypercholesterolemia, unspecified; E06.3 Autoimmune thyroiditis; N18.31 Chronic kidney disease, stage 3a; Z72.0 Tobacco use; M25.462 Effusion, left knee; M25.812 Other specified joint disorders, left shoulder

== ENCOUNTER → 2025-02-01 15:14 | Outpatient (BNV) | payer OTHER, SELFPAY | PROVIDERS: PCP Internal Medicine; Visit Provider Radiology Diagnostic Radiology | DX: M25.812 Other specified joint disorders, left shoulder (principal) | CPT/HCPCS: 73030; 73560 ==